=== PATIENT | female | born 2000 | race Caucasian/White ===

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

== ENCOUNTER 2022-01-09 14:42 | Emergency (ER) | payer OTHER ==
[~2022-01-09] VITALS: Ht 167.6 cm; Wt 66.9 kg
[~2022-01-09 14:42] MED LIST changes: +ONDANSETRON HCL4 MG PO
--- OUTSIDE RECORDS SUMMARY | 2022-01-09 14:50 | XMS ---
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 DOTSON Security Administrative Assistant Events 1 event(s) in the past 18 months Most recent security events: Elopement at [facility] 11/09/2021 16:05 - Patient eloped before treatment completed. - Patient with suicidal and/or homicidal ideations eloped. - Patient eloped with IV in place. Details: PATIENT LWBS CRITERIA MET - [facility] - Has Care Guidelines - 6 ED Visits in 6 Months - [facility] - 2 Visits in 30 Days CARE PROVIDERS KARLO DEJESUS Current PHONE: Unknown FLORINA CURTIS Current PHONE: Unknown RIMA SINGLETON 08/21/2019-Laith CARRASCO PHONE: Unknown YON CO[facility] 01/17/2018-Current PHONE: Unknown Care Guidelines exist for the following facilities: [facility] ( 08/23/2019 ) Care [facility]- TO HELP PATIENT ESTABLISH CARE WITH A PROVIDER NO ANSWER- LEFT A VOICEMAIL FOR A RETURN CALL. 01/17/2018 [facility] - [facility]W CALLED PATIENT PCP OFFICE DISCUSSED PATIENT ED UTILIZATION. - PATIENT HAS BEEN FOLLOWING UP WITH PCP DUE TO HX OF ASTHMA. - PATIENT NEXT APT IS 01/18/18 AND CHW HAS REQUESTED A REVIEW FOR NEBULIZER TREATMENT AND PCP DISCUSSION/EDUCATION WITH PATIENT ABOUT MARIJUANA USAGE. E.D. VISIT COUNT (12 MO.) [address] [place] [address]. TOTAL 10 NOTE: Visits indicate total known visits. ED/UCC VISIT TRACKING (12 MO.) 01/09/2022 14:43 [facility] [place] TYPE: Emergency COMPLAINT: - RIB PAIN 12/15/2021 17:49 [facility] [place] TYPE: Emergency COMPLAINT: - WEAKNESS/14 WKS PREG DIAGNOSES: - Bee allergy status - 14 weeks gestation of - Allergy status to other drugs, medicaments and biological substances - Other usp (current) drug therapy - Hyperemesis gravidarum with metabolic disturbance 11/09/2021 16:05 [facility] TYPE: Emergency COMPLAINT: - R HAND SWELLING BEE STING 10/31/2021 23:[address] [facility] [place] [facility] [place] TYPE: Emergency COMPLAINT: - SHORTNESS OF BREATH DIAGNOSES: - Gastro-esophageal laceration-hemorrhage syndrome - Cough, unspecified - Other tubing supervisor (current) drug therapy - Less than 8 weeks gestation of - Allergy status to other drugs, medicaments and biological substances - Diseases of the digestive system complicating , first trimester [facility]21 [facility] [place] [facility] COMPLAINT: - MULTIPLE COMPLAINTS DIAGNOSES: - Diarrhea, unspecified - Other specified diseases and conditions complicating - Contact with and (suspected) exposure to COVID-19 - Less than 8 weeks gestation of 10/16/2021 15:[address] [facility] [place] [place] TYPE: Emergency COMPLAINT: - NAUSEA,VOMITING,POSS DEHYDRATION DIAGNOSES: - Less than 8 weeks gestation of - Allergy status to other drugs, medicaments and biological substances - Vomiting of , unspecified - Nausea with vomiting, unspecified - Triplet , unspecified number of placenta and unspecified number of amniotic sacs, first trimester 09/10/2021 21:49 [facility] [place] TYPE: Emergency COMPLAINT: - LEFT KNEE INJ DIAGNOSES: - Pain in left knee - Derangement of unspecified meniscus due to old tear or injury, left knee - Allergy status to other drugs, medicaments and biological substances 08/29/2021 12:54 [facility] [place] TYPE: Emergency COMPLAINT: - VAGINAL BLEEDING, 6 WKS PREG DIAGNOSES: - Less than 8 weeks gestation of - Allergy status to other drugs, medicaments and biological substances - Threatened 07/05/2021 23:[address] [facility] [place] TYPE: Emergency COMPLAINT: - VOMITING, R UPPER ABD PAIN DIAGNOSES: - Upper abdominal pain, unspecified - Allergy status to other drugs, medicaments and biological substances - Right upper quadrant pain 04/25/2021 17:34 [facility] [place] TYPE: Emergency COMPLAINT: - FLU SYMPTOMS,DIZZINESS,VOMITING DIARRHEA DIAGNOSES: - COVID-19 - Diarrhea, unspecified - Allergy status to other drugs, medicaments and biological substances INPATIENT VISIT TRACKING (12 MO.) No inpatient visits to display in this time frame [email or web address]
== END 2022-01-09 16:41 | disposition home or self-care (01) ==
LOC: ED 14:42
DX: O99.891 Other specified diseases and conditions complicating pregnancy (principal); R07.9 Chest pain, unspecified; Z91.030 Bee allergy status; Z91.048 Other nonmedicinal substance allergy status; Z3A.18 18 weeks gestation of pregnancy
CPT/HCPCS: 99284

== ENCOUNTER 2022-02-18 02:49 | Emergency (ER) | payer OTHER ==
[~2022-02-18] VITALS: Ht 167.6 cm; Wt 66.9 kg
--- OUTSIDE RECORDS SUMMARY | 2022-02-18 02:56 | XMS ---
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 DOTSON Security Director Orange Events 1 event(s) in the past 18 months Most recent security events: Elopement at [facility] 11/09/2021 16:05 - Patient eloped before treatment completed. - Patient with suicidal and/or homicidal ideations eloped. - Patient eloped with IV in place. Details: PATIENT LWBS CRITERIA MET - [facility] - Has Care Guidelines - 6 ED Visits in 6 Months CARE PROVIDERS KARLO DEJESUS Physician Gospel Worker Current PHONE: Unknown FLORINA CURTIS [facility] Current PHONE: Unknown RIMA SINGLETON [facility] 08/21/2019-Laith CARRASCO PHONE: Unknown YON COOPER [facility] 01/17/2018-Current PHONE: Unknown Care Guidelines exist for the following facilities: [facility] ( 08/23/2019 ) Care [facility]- TO HELP PATIENT ESTABLISH CARE WITH A PROVIDER NO ANSWER- LEFT A VOICEMAIL FOR A RETURN CALL. 01/17/2018 [facility] - CHW CALLED PATIENT PCP OFFICE DISCUSSED PATIENT ED UTILIZATION. - PATIENT HAS BEEN FOLLOWING UP WITH PCP DUE TO HX OF ASTHMA. - PATIENT NEXT APT IS 01/18/18 AND CHW HAS REQUESTED A REVIEW FOR NEBULIZER TREATMENT AND PCP DISCUSSION/EDUCATION WITH PATIENT ABOUT MARIJUANA USAGE. E.D. VISIT COUNT (12 MO.) [address] [place] [address]. TOTAL 11 NOTE: Visits indicate total known visits. ED/UCC VISIT TRACKING (12 MO.) 02/18/2022 02:50 [facility] [place] TYPE: Emergency COMPLAINT: - 23 WKS PREG, VOMTIING BLOOD 01/09/2022 14:43 [facility] [place] TYPE: Emergency COMPLAINT: - RIB PAIN DIAGNOSES: - Other specified diseases and conditions complicating - Chest pain, unspecified - 18 weeks gestation of - Other nonmedicinal substance allergy status - Bee allergy status 12/15/2021 17:49 [facility] [place] TYPE: Emergency COMPLAINT: - WEAKNESS/14 WKS PREG DIAGNOSES: - 14 weeks gestation of - Allergy status to other drugs, medicaments and biological substances - Other long filler cigar roller machine (current) drug therapy - Hyperemesis gravidarum with metabolic disturbance - Bee allergy status 11/09/2021 16:05 [facility] [place] [place] TYPE: Emergency COMPLAINT: - R HAND SWELLING BEE STING 10/31/2021 23:27 [facility] [place] [place] TYPE: Emergency COMPLAINT: - SHORTNESS OF BREATH DIAGNOSES: - Other long filler cigar roller machine (current) drug therapy - Less than 8 weeks gestation of - Allergy status to other drugs, medicaments and biological substances - Diseases of the digestive system complicating , first trimester - Gastro-esophageal laceration-hemorrhage syndrome - Cough, unspecified 10/24/2021 15:52 [facility] [place] TYPE: Emergency COMPLAINT: - MULTIPLE COMPLAINTS DIAGNOSES: - Other specified diseases and conditions complicating - Contact with and (suspected) exposure to COVID-19 - Less than 8 weeks gestation of - Diarrhea, unspecified 10/16/2021 15:11 [facility] [place] TYPE: Emergency COMPLAINT: - NAUSEA,VOMITING,POSS DEHYDRATION DIAGNOSES: - Allergy status to other drugs, medicaments and biological substances - Vomiting of , unspecified - Nausea with vomiting, unspecified - Triplet , unspecified number of placenta and unspecified number of amniotic sacs, first trimester - Less than 8 weeks gestation of 09/10/2021 21:49 [facility] [place] TYPE: Emergency [...] and biological substances - Threatened 07/05/2021 23:56 [facility] [place] TYPE: Emergency [...] visits to display in this time frame [email or web address]
[2022-02-18] MEDS ORDERED: FAMOTIDINE20 MG PO (03:02)
[2022-02-18] MEDS ORDERED: METOCLOPRAMIDE H5 MG PO (03:02)
[2022-02-18] MEDS ORDERED: PROMETHAZINE HC25 M1 PO (04:42)
[2022-02-18] MEDS ORDERED: CARAFATE1 GM PO (04:42)
== END 2022-02-18 05:07 | disposition home or self-care (01) ==
LOC: ED 02:49
DX: O21.0 Mild hyperemesis gravidarum (principal); O99.612 Diseases of the digestive system complicating pregnancy, second trimester; K22.6 Gastro-esophageal laceration-hemorrhage syndrome; Z3A.23 23 weeks gestation of pregnancy; Z88.8 Allergy status to other drugs, medicaments and biological substances; Z91.030 Bee allergy status; Z79.899 Other long term (current) drug therapy
CPT/HCPCS: 36415; 76810; 76815; 80053; 81001; 83690; 85025; 87088; 96361; 96365; 96375; 99284-25; J0696; J2550; J7030

== ENCOUNTER 2022-10-13 13:00 | Emergency (ER) | payer OTHER ==
[~2022-10-13] VITALS: Ht 167.6 cm; Wt 63.7 kg
--- OUTSIDE RECORDS SUMMARY | ~2022-10-13 | XMS | Continuity of Care Document ---
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 | (no reaction) | (no severity) | | | | [facility] | | | + + + + + + | (no date) | [place] | [facility] | (no reaction) | [...] + + + | (no date) | [place] | [facility] | (no reaction) | [...] + | 2019-08-24 00:00 | Tdap | [facility] | + + + + | 2019-08-24 00:00 | Tdap | [facility] | + + + + Medications + + + + | date | description | facility | + + + + | 2021-11-05 00:00 | DIPHENHYDRAMINE HCL | [facility] | + + + + | 2021-12-15 00:00 | DIPHENHYDRAMINE HCL | [facility] | + + + + | 2022-01-09 00:00 | DIPHENHYDRAMINE HCL | [facility] | + + + + | 2022-02-18 00:00 | DIPHENHYDRAMINE HCL | [facility] | + + + + | 2022-10-07 00:00 | DIPHENHYDRAMINE HCL | [facility] | + + + + | 2021-10-16 00:00 | DOXYLAMINE/PYRIDOXINE HCL | [facility] | + + + + | 2021-10-16 00:00 | DOXYLAMINE/PYRIDOXINE HCL | [facility] | + + + + | 2021-10-18 00:00 | ASENAPINE MALEATE | [facility] | + + + + | 2021-10-24 00:00 | ASENAPINE MALEATE | [facility] | + + + + | 2021-11-05 00:00 | ASENAPINE MALEATE | [facility] | + + + + | 2021-12-15 00:00 | ASENAPINE MALEATE | [facility] | + + + + | 2022-01-09 00:00 | ASENAPINE MALEATE | [facility] | + + + + | 2022-02-18 00:00 | ASENAPINE MALEATE | [facility] | + + + + | 2022-10-07 00:00 | ASENAPINE MALEATE | [facility] | + + + + | 2021-12-15 00:00 | ONDANSETRON HCL | [facility] | + + + + | 2022-02-18 00:00 | SUCRALFATE | [facility] | + + + + | 2018-01-16 00:00 | BENZONATATE | [facility] | + + + + | 2018-01-16 00:00 | BENZONATATE | [facility] | + + + + | 2019-08-19 00:00 | CEPHALEXIN | [facility] | + + + + | 2019-08-19 00:00 | CEPHALEXIN | [facility] | + + + + | 2018-05-08 00:00 | AZITHROMYCIN | [facility] | + + + + | 2018-05-08 00:00 | AZITHROMYCIN | [facility] | + + + + | 2021-10-18 00:00 | AZITHROMYCIN | [facility] | + + + + | 2021-10-24 00:00 | AZITHROMYCIN | [facility] | + + + + | 2021-11-05 00:00 | AZITHROMYCIN | [facility] | + + + + | 2021-12-15 00:00 | AZITHROMYCIN | [facility] | + + + + | 2022-01-09 00:00 | AZITHROMYCIN | [facility] | + + + + | 2022-02-18 00:00 | AZITHROMYCIN | [facility] | + + + + | 2022-10-07 00:00 | AZITHROMYCIN | [facility] | + + + + | 2021-07-06 00:00 | PANTOPRAZOLE SODIUM | [facility] | + + + + | 2021-07-06 00:00 | PANTOPRAZOLE SODIUM | [facility] | + + + + | 2022-02-18 00:00 | FAMOTIDINE | [facility] | + + + + | 2022-10-07 00:00 | FAMOTIDINE | [facility] | + + + + | 2021-11-05 00:00 | FOLIC ACID | [facility] | + + + + | 2021-12-15 00:00 | FOLIC ACID | [facility] | + + + + | 2022-01-09 00:00 | FOLIC ACID | [facility] | + + + + | 2022-02-18 00:00 | FOLIC ACID | [facility] | + + + + | 2022-10-07 00:00 | FOLIC ACID | [facility] | + + + + | 2021-10-18 00:00 | GABAPENTIN | [facility] | + + + + | 2021-10-24 00:00 | GABAPENTIN | [facility] | + + + + | 2021-11-05 00:00 | GABAPENTIN | [facility] | + + + + | 2021-12-15 00:00 | GABAPENTIN | [facility] | + + + + | 2022-01-09 00:00 | GABAPENTIN | [facility] | + + + + | 2022-02-18 00:00 | GABAPENTIN | [facility] | + + + + | 2022-10-07 00:00 | GABAPENTIN | [facility] | + + + + | 2021-11-05 00:00 | METOCLOPRAMIDE HCL | [facility] | + + + + | 2021-12-15 00:00 | METOCLOPRAMIDE HCL | [facility] | + + + + | 2022-01-09 00:00 | METOCLOPRAMIDE HCL | [facility] | + + + + | 2022-02-18 00:00 | METOCLOPRAMIDE HCL | [facility] | + + + + | 2022-10-07 00:00 | METOCLOPRAMIDE HCL | [facility] | + + + + | 2021-07-06 00:00 | ONDANSETRON | [facility] | + + + + | 2021-07-06 00:00 | ONDANSETRON | [facility] | + + + + | 2018-05-08 00:00 | predniSONE | [facility] | + + + + | 2018-05-08 00:00 | predniSONE | [facility] | + + + + | 2021-10-18 00:00 | predniSONE | [facility] | + + + + | 2021-10-24 00:00 | predniSONE | [facility] | + + + + | 2021-11-05 00:00 | predniSONE | [facility] | + + + + | 2021-12-15 00:00 | predniSONE | [facility] | + + + + | 2022-01-09 00:00 | predniSONE | [facility] | + + + + | 2022-02-18 00:00 | predniSONE | [facility] | + + + + | 2022-10-07 00:00 | predniSONE | [facility] | + + + + | 2021-10-18 00:00 | ARIPIPRAZOLE | [facility] | + + + + | 2021-10-24 00:00 | ARIPIPRAZOLE | [facility] | + + + + | 2021-11-05 00:00 | ARIPIPRAZOLE | [facility] | + + + + | 2021-12-15 00:00 | ARIPIPRAZOLE | [facility] | + + + + | 2022-01-09 00:00 | ARIPIPRAZOLE | [facility] | + + + + | 2022-02-18 00:00 | ARIPIPRAZOLE | [facility] | + + + + | 2022-10-07 00:00 | ARIPIPRAZOLE | [facility] | + + + + | 2018-01-16 00:00 | ALBUTEROL SULFATE | [facility] | + + + + | 2018-01-16 00:00 | ALBUTEROL SULFATE | [facility] | + + + + | 2021-10-18 00:00 | AMOXICILLIN/POTASSIUM CLAV | [facility] | | | | | + + + + | 2021-10-24 00:00 | AMOXICILLIN/POTASSIUM CLAV | [facility] | | | | | + + + + | 2021-11-05 00:00 | AMOXICILLIN/POTASSIUM CLAV | [facility] | | | | | + + + + | 2021-12-15 00:00 | AMOXICILLIN/POTASSIUM CLAV | [facility] | | | | | + + + + | 2022-01-09 00:00 | AMOXICILLIN/POTASSIUM CLAV | [facility] | | | | | + + + + | 2022-02-18 00:00 | AMOXICILLIN/POTASSIUM CLAV | [facility] | | | | | + + + + | 2022-10-07 00:00 | AMOXICILLIN/POTASSIUM CLAV | [facility] | | | | | + + + + | 2021-10-18 00:00 | TRAZODONE HCL | [facility] | + + + + | 2021-10-24 00:00 | TRAZODONE HCL | [facility] | + + + + | 2021-11-05 00:00 | TRAZODONE HCL | [facility] | + + + + | 2021-12-15 00:00 | TRAZODONE HCL | [facility] | + + + + | 2022-01-09 00:00 | TRAZODONE HCL | [facility] | + + + + | 2022-02-18 00:00 | TRAZODONE HCL | [facility] | + + + + | 2022-10-07 00:00 | TRAZODONE HCL | [facility] | + + + + | 2018-05-08 00:00 | ALBUTEROL SULFATE | [facility] | + + + + | 2018-05-08 00:00 | ALBUTEROL SULFATE | [facility] | + + + + | 2021-10-18 00:00 | ALBUTEROL SULFATE | [facility] | + + + + | 2021-10-24 00:00 | ALBUTEROL SULFATE | [facility] | + + + + | 2021-11-05 00:00 | ALBUTEROL SULFATE | [facility] | + + + + | 2021-12-15 00:00 | ALBUTEROL SULFATE | [facility] | + + + + | 2022-01-09 00:00 | ALBUTEROL SULFATE | [facility] | + + + + | 2022-02-18 00:00 | ALBUTEROL SULFATE | [facility] | + + + + | 2022-10-07 00:00 | ALBUTEROL SULFATE | [facility] | + + + + | 2021-10-18 00:00 | CLONIDINE HCL | [facility] | + + + + | 2021-10-24 00:00 | CLONIDINE HCL | [facility] | + + + + | 2021-11-05 00:00 | CLONIDINE HCL | [facility] | + + + + | 2021-12-15 00:00 | CLONIDINE HCL | [facility] | + + + + | 2022-01-09 00:00 | CLONIDINE HCL | [facility] | + + + + | 2022-02-18 00:00 | CLONIDINE HCL | [facility] | + + + + | 2022-10-07 00:00 | CLONIDINE HCL | [facility] | + + + + | 2021-10-16 00:00 | PROMETHAZINE HCL | [facility] | + + + + | 2021-10-16 00:00 | PROMETHAZINE HCL | [facility] | + + + + | 2022-02-18 00:00 | PROMETHAZINE HCL | [facility] | + + + + Problems + + + + | date | description | facility | + + + + | 2014-01-22 00:00 | Contusion of scalp | [facility] | + + + + | 2014-01-22 00:00 | Contusion of scalp | [facility] | + + + + | 2014-04-28 00:00 | Chest wall pain | [facility] | + + + + | 2014-04-28 00:00 | Chest wall pain | [facility] | + + + + | 2017-07-08 00:00 | Intentional drug overdose | [facility] | + + + + | 2017-07-08 00:00 | Intentional drug overdose | [facility] | + + + + | 2018-01-07 00:00 | Bronchitis | [facility] | + + + + | 2018-01-07 00:00 | Bronchitis | [facility] | + + + + | 2018-05-07 00:00 | Attempted suicide | [facility] | + + + + | 2018-05-07 00:00 | Attempted suicide | [facility] | + + + + | 2018-05-07 00:00 | Overdose of | [facility] | | | antihypertensive agent | | + + + + | 2018-05-07 00:00 | Overdose of | [facility] | | | antihypertensive agent | | + + + + | 2019-01-06 00:00 | Methamphetamine abuse | [facility] | + + + + | 2019-01-06 00:00 | Methamphetamine abuse | [facility] | + + + + | 2019-03-20 00:00 | Substance abuse | [facility] | + + + + | 2019-03-20 00:00 | Substance abuse | [facility] | + + + + | 2019-03-20 00:00 | Drug overdose | [facility] | + + + + | 2019-03-20 00:00 | Drug overdose | [facility] | + + + + | 2019-04-13 00:00 | Sinus tachycardia | [facility] | + + + + | 2019-04-13 00:00 | Sinus tachycardia | [facility] | + + + + | 2019-08-19 00:00 | Urinary tract infection | [facility] | + + + + | 2019-08-19 00:00 | Urinary tract infection | [facility] | + + + + | 2021-04-25 00:00 | Infection due to severe | [facility] | | | acute respiratory syndrome | | | | coronavirus 2 (SARS-CoV-2) | | + + + + | 2021-04-25 00:00 | Infection due to severe | [facility] | | | acute respiratory syndrome | | | | coronavirus 2 (SARS-CoV-2) | | + + + + | 2021-08-29 00:00 | Threatened | [facility] | + + + + | 2021-08-29 00:00 | Threatened | [facility] | + + + + | 2021-09-10 00:00 | Tear of meniscus of left | [facility] | | | knee | | + + + + | 2021-09-10 00:00 | Tear of meniscus of left | [facility] | | | knee | | + + + + | 2021-10-16 00:00 | Multiple gestation | [facility] | + + + + | 2021-10-16 00:00 | Multiple gestation | [facility] | + + + + | 2021-10-16 00:00 | Abdominal pain | [facility] | + + + + | 2021-10-16 00:00 | Abdominal pain | [facility] | + + + + | 2021-10-16 00:00 | Vomiting | [facility] | + + + + | 2021-10-16 00:00 | Vomiting | [facility] | + + + + | 2021-11-01 00:00 | Venus-Chapa tear | [facility] | + + + + | 2021-11-09 00:00 | Patient left without being | [facility] | | | seen | | + + + + | 2021-12-15 00:00 | Hyperemesis gravidarum | [facility] | | | before end of 22 week | | | | gestation with dehydration | | + + + + | 2022-02-18 00:00 | Hyperemesis gravidarum | [facility] | + + + + | 2022-03-08 05:45 | TRIPLET PREG, UNSP NUM | [facility] | | | PLCNTA AMNIO SACS, FIRST | | | | TRIMESTER | | + + + + | 2022-03-08 05:45 | 14 WEEKS GESTATION OF | [facility] | | | | | + + + + | 2022-10-07 00:00 | Hallucinogen overdose | [facility] | + + + + | 2022-10-07 00:00 | Overdose of undetermined | [facility] | | | intent | | + + + + | 2022-10-07 03:34 | OTHER FATIGUE | [facility] | + + + + | 2022-10-07 03:34 | POISONING BY OTH | [facility] | | | PSYCHODYSLEPT, ACCIDENTAL, | | | | INIT | | + + + + | 2022-10-07 03:34 | 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 | [id number] | (missing) | (missing) | | (unavailable | 13:44 | [facility] | | | | + + + + + + + + + | Result panel 8 | + + + + + + + + + | | 2021-08-29 | [facility] | [id number] | (missing) | (missing) | | (unavailable | 13:44 | [facility] | | | | + + + + + + + + + | Result panel 9 | + + + + + + + + + | | 2021-08-29 | [facility] | [id number] | (missing) | (missing) | | (unavailable [...] 44 | + + + + + +-------+ + + | | 2021-10-16 | [facility] | 3.9 | (missing) | (missing) | | (unavailable | 17:22 | [facility] | | | | + + + +-------+ + + + + | Result panel 45 | + + + + + +-------+ + + | | 2021-10-16 | [facility] | 103 | (missing) | (missing) | | (unavailable | 17:22 | [facility] | | | | + + + +-------+ + + + + | Result panel 46 | + + + + + +------+ [...] 48 | + + + + + +-------+---------+ + | | 2021-10-16 | [facility] | 9.0 | mg/dL | (missing) | | (unavailable | 17:22 | [facility] | | | | + + + +-------+---------+ + + + | Result panel 49 | + + + + + +-------+ + + | | 2021-10-16 | [facility] | 7.4 | (missing) | (missing) | | (unavailable | 17:22 | [facility] | | | | + + + +-------+ + + + + | Result panel 50 | + + + + + +-------+ [...] 53 | + + + + + +-------+ + + | | 2021-10-16 | [facility] | 0.7 | (missing) | (missing) | | (unavailable | 17:22 | [facility] | | | | + + + +-------+ + + + + | Result panel 54 | + + + + + +------+ + + | | 2021-10-16 | [facility] | 11 | (missing) | (missing) | | (unavailable | 17:22 | [facility] | | | | + + + +------+ + + + + | Result panel 55 | + + + + + +------+ + + | | 2021-10-16 | [facility] | 15 | (missing) | (missing) | | (unavailable | 17:22 | [facility] | | | | + + + +------+ + + + + | Result panel 56 | + + + + + +------+ + + | | 2021-10-16 | [facility] | 58 | (missing) | (missing) | | (unavailable | 17:22 | [facility] | | | | + + + +------+ + + + + | Result panel 57 | + + + + + +---------+ + + | | 2021-10-16 | [facility] | [id number] | (missing) | (missing) | | (unavailable | 17:22 | [facility] | | | | + + + +---------+ + + + + | Result panel 58 | + + + + + + + + + | | 2021-10-16 | [facility] | POSITIVE | (missing) | (missing) | | (unavailable | 17:22 | [facility] | | | | + + + + + + + + + | Result panel 59 | + + + + + +---------+ + + | | 2021-10-16 | [facility] | [id number] | (missing) | (missing) | | (unavailable | 17:22 | [facility] | | | | + + + +---------+ + + + + | Result panel 60 | + + + + + + [...] | | 2021-10-16 | [facility] | [id number] | (missing) | (missing) | | (unavailable | 17:22 | [facility] | | | | + + + +---------+ + + + + | Result panel 62 | + + + + + + [...] 64 | + + + + + +--------+ + + | | 2021-10-16 | [facility] | 4.28 | (missing) | (missing) | | (unavailable | 17:22 | [facility] | | | | + + + +--------+ + + + + | Result panel 65 | + + + + + +--------+ [...] 67 | + + + + + +--------+ + + | | 2021-10-16 | [facility] | 91.3 | (missing) | (missing) | | (unavailable | 17:22 | [facility] | | | | + + + +--------+ + + + + | Result panel 68 | + + + + + +--------+ + + | | 2021-10-16 | [facility] | 31.2 | (missing) | (missing) | | (unavailable | 17:22 | [facility] | | | | + + + +--------+ + + + + | Result panel 69 | + + + + + +--------+ + + | | 2021-10-16 | [facility] | 34.2 | (missing) | (missing) | | (unavailable | 17:22 | [facility] | | | | + + + +--------+ + + + + | Result panel 70 | + + + + + +--------+ + + | | 2021-10-16 | [facility] | 13.0 | (missing) | (missing) | | (unavailable | 17:22 | [facility] | | | | + + + +--------+ + + + + | Result panel 71 | + + + + + +-------+ + + | | 2021-10-16 | [facility] | 216 | (missing) | (missing) | | (unavailable | 17:22 | [facility] | | | | + + + +-------+ + + + + | Result panel 72 | + + + + + +--------+ + + | | 2021-10-16 | [facility] | 58.9 | (missing) | (missing) | | (unavailable | 17:22 | [facility] | | | | + + + +--------+ + + + + | Result panel 73 | + + + + + +--------+ + + | | 2021-10-16 | [facility] | 28.8 | (missing) | (missing) | | (unavailable | 17:22 | [facility] | | | | + + + +--------+ + + + + | Result panel 74 | + + + + + +-------+ + + | | 2021-10-16 | [facility] | 8.8 | (missing) | (missing) | | (unavailable | 17:22 | [facility] | | | | + + + +-------+ + + + + | Result panel 75 | + + + + + +-------+ + + | | 2021-10-16 | [facility] | 2.8 | (missing) | (missing) | | (unavailable | 17:22 | [facility] | | | | + + + +-------+ + + + + | Result panel 76 | + + + + + +-------+ + + | | 2021-10-16 | [facility] | 0.7 | (missing) | (missing) | | (unavailable | 17:22 | [facility] | | | | + + + +-------+ + + + + | Result panel 77 | + + + + + +------+---------+ + | | 2021-10-16 | [facility] | 88 | mg/dL | (missing) | | (unavailable | :22 | [facility] | | | | + + + +------+---------+ + + + | Result panel 78 | + + + + + +------+---------+ + | | 2021-10-16 | [facility] | 11 | mg/dL | (missing) | | (unavailable | 17:22 | [facility] | | | | + + + +------+---------+ + + + | Result panel 79 | + + + + + +--------+---------+ + | | 2021-10-16 | [facility] | 0.71 | mg/dL | (missing) | | (unavailable | 17:22 | [facility] | | | | + + + +--------+---------+ + + + | Result panel 80 | + + + + + +-------+ + + | | 2021-10-16 | [facility] | 126 | (missing) | (missing) | | (unavailable | 17:22 | [facility] | | | | + + + +-------+ + + + + | Result panel 81 | + + + + + +---------+ [...] (missing) | | (unavailable | 19:15 | [facility] | | | | | [...] | | 2021-12-15 | [facility] | [id number] | (missing) | (missing) | | (unavailable [...] (missing) | | (unavailable | 18:33 | [facility] | | | | | ) | [...] | | 2021-12-15 | [facility] | [id number] | (missing) | (missing) | | (unavailable [...] 358 | + + + + + +-------+ + + | | 2022-10-07 | [facility] | 9.8 | (missing) | (missing) | | (unavailable | 03:45:07 | [facility] | | | | + + + +-------+ + + + + | Result panel 359 | + + + + + +--------+ + + | | 2022-10-07 | [facility] | 46.4 | (missing) | (missing) | | (unavailable | 03:45:07 | [facility] | | | | + + + +--------+ + + + + | Result panel 360 | + + + + + +--------+ + + | | 2022-10-07 | [facility] | 38.6 | (missing) | (missing) | | (unavailable | 03:45:07 | [facility] | | | | + + + +--------+ + + + + | Result panel 361 | + + + + + +-------+ + + | | 2022-10-07 | [facility] | 9.3 | (missing) | (missing) | | (unavailable | 03:45:07 | [facility] | | | | + + + +-------+ + + + + | Result panel 362 | + + + + + +-------+ + + | | 2022-10-07 | [facility] | 5.0 | (missing) | (missing) | | (unavailable | 03:45:07 | [facility] | | | | + + + +-------+ + + + + | Result panel 363 | + + + + + +-------+ [...] 365 | + + + + + +------+---------+ + | | 2022-10-07 | [facility] | 99 | mg/dL | (missing) | | (unavailable | 03:45:07 | [facility] | | | | + + + +------+---------+ + + + | Result panel 366 | + + + + + +------+---------+ + | | 2022-10-07 | [facility] | 25 | mg/dL | (missing) | | (unavailable | 03:45:07 | [facility] | | | | + + + +------+---------+ + + + | Result panel 367 | + + + + + +--------+---------+ + | | 2022-10-07 | [facility] | 1.05 | mg/dL | (missing) | | (unavailable | 03:45:07 | [facility] | | | | + + + +--------+---------+ + + + | Result panel 368 | + + + + + +--------+ + + | | 2022-10-07 | [facility] | 15.3 | (missing) | (missing) | | (unavailable | 03:45:07 | [facility] | | | | + + + +--------+ + + + + | Result panel 369 | + + + + + +------+ + + | | 2022-10-07 | [facility] | 78 | (missing) | (missing) | | (unavailable | 03:45:07 | [facility] | | | | + + + +------+ + + + + | Result panel 370 | + + + + + +---------+ + + | | 2022-10-07 | [facility] | 23.80 | (missing) | (missing) | | (unavailable | 03:45:07 | [facility] | | | | + + + +---------+ + + + + | Result panel 371 | + + + + + +-------+ + + | | 2022-10-07 | [facility] | 139 | (missing) | (missing) | | (unavailable | 03:45:07 | [facility] | | | | + + + +-------+ + + + + | Result panel 372 | + + + + + +-------+ + + | | 2022-10-07 | [facility] | 3.4 | (missing) | (missing) | | (unavailable | 03:45:07 | [facility] | | | | + + + +-------+ + + + + | Result panel 373 | + + + + + +-------+ + + | | 2022-10-07 | [facility] | 101 | (missing) | (missing) | | (unavailable | 03:45:07 | [facility] | | | | + + + +-------+ + + + + | Result panel 374 [...] 375 | + + + + + +--------+ + + | | 2022-10-07 | [facility] | 15.4 | (missing) | (missing) | | (unavailable | 03:45:07 | [facility] | | | | + + + +--------+ + + + + | Result panel 376 | + + + + + +-------+---------+ + | | 2022-10-07 | [facility] | 9.0 | mg/dL | (missing) | | (unavailable | 03:45:07 | [facility] | | | | + + + +-------+---------+ + + + | Result panel 377 [...] 379 | + + + + + +--------+ + + | | 2022-10-07 | [facility] | 44.8 | (missing) | (missing) | | (unavailable | 03:45:07 | [facility] | | | | + + + +--------+ + + + + | Result panel 380 | + + + + + +-------+ + + | | 2022-10-07 | [facility] | 3.7 | (missing) | (missing) | | (unavailable | 03:45:07 | [facility] | | | | + + + +-------+ + + + + | Result panel 381 | + + + + + +--------+ + + | | 2022-10-07 | [facility] | 1.27 | (missing) | (missing) | | (unavailable | 03:45:07 | [facility] | | | | + + + +--------+ + + + + | Result panel 382 [...] 383 | + + + + + +------+ + + | | 2022-10-07 | [facility] | 21 | (missing) | (missing) | | (unavailable | 03:45:07 | [facility] | | | | + + + +------+ + + + + | Result panel 384 | + + + + + +------+ + + | | 2022-10-07 | [facility] | 28 | (missing) | (missing) | | (unavailable | 03:45:07 | [facility] | | | | + + + +------+ + + + + | Result panel 385 | + + + + + +------+ + + | | 2022-10-07 | [facility] | 87 | (missing) | (missing) | | (unavailable | 03:45:07 | [facility] | | [facility] | | | | + + + +------+ + + + + | Result panel 386 | + + + + + + + + + | | 2022-10-07 | [facility] | NEGATIVE | (missing) | (missing) | | (unavailable | 03:45:07 | [facility] | | | | + + + + + + + + + | Result panel 387 | + + + + + +-----+ [...] 389 | + + + + + +-------+---------+ + | | 2022-10-07 | [facility] | 1.1 | mg/dL | (missing) | | (unavailable | 03:45:07 | [facility] | | | | + + + +-------+---------+ + + + | Result panel 390 | + + + + + +--------+ + + | | 2022-10-07 | [facility] | 87.3 | (missing) | (missing) | | (unavailable | 03:45:07 | [facility] | | | | + + + +--------+ + + + + | Result panel 391 | + + + + + +------+ [...] 393 | + + + + + +--------+ + + | | 2022-10-07 | [facility] | 29.8 | (missing) | (missing) | | (unavailable | 03:45:07 | [facility] | | | | + + + +--------+ + + + + | Result panel 394 | + + + + + +--------+ + + | | 2022-10-07 | [facility] | 34.1 | (missing) | (missing) | | (unavailable | 03:45:07 | [facility] | | | | + + + +--------+ + + + + | Result panel 395 | + + + + + +--------+ + + | | 2022-10-07 | [facility] | 13.2 | (missing) | (missing) | | (unavailable | 03:45:07 | [facility] | | | | + + + +--------+ + + + + | Result panel 396 | + + + + + +-------+ + + | | 2022-10-07 | [facility] | 289 | (missing) | (missing) | | (unavailable | 03:45:07 | [facility] | | | | + + + +-------+ + + + + | Result panel 397 | + + + + + + + + + | | 2022-10-07 | [facility] | YELLOW | (missing) | (missing) | | (unavailable | 03:53:07 | [facility] | | | | + + + + + + + + + | Result panel 398 | + + + + + +---------+ + + | | 2022-10-07 | [facility] | CLEAR | (missing) | (missing) | | (unavailable | 03:53:07 | [facility] | | | | + + + +---------+ + + + + | Result panel 399 | + + + + + + + + + | | 2022-10-07 | [facility] | NEGATIVE | (missing) | (missing) | | (unavailable | 03:53:07 | [facility] | | | | + + + + + + + + + | Result panel 400 | + + + + + + + + + | | 2022-10-07 | [facility] | NEGATIVE | (missing) | (missing) | | (unavailable | 03:53:07 | [facility] | | | | + + + + + + + + + | Result panel 401 | + + + + + + + + + | | 2022-10-07 | [facility] | NEGATIVE | (missing) | (missing) | | (unavailable | 03:53:07 | [facility] | | | | + + + + + + + + + | Result panel 402 | + + + + + +---------+ + + | | 2022-10-07 | [facility] | 1.020 | (missing) | (missing) | | (unavailable | 03:53:07 | [facility] | | | | + + + +---------+ + + + + | Result panel 403 | + + + + + + + + + | | 2022-10-07 | [facility] | NEGATIVE | (missing) | (missing) | | (unavailable | 03:53:07 | [facility] | | | | + + + + + + + + + | Result panel 404 | + + + + + +-------+ + + | | 2022-10-07 | [facility] | 5.5 | (missing) | (missing) | | (unavailable | 03:53:07 | [facility] | | | | + + + +-------+ + + + + | Result panel 405 | + + + + + + + + + | | 2022-10-07 | [facility] | NEGATIVE | (missing) | (missing) | | (unavailable | 03:53:07 | [facility] | | | | + + + + + + + + + | Result panel 406 | + + + + + + + + + | | 2022-10-07 | [facility] | NORMAL | (missing) | (missing) | | (unavailable | 03:53:07 | [facility] | | | | + + + + + + + + + | Result panel 407 | + + + + + + + + + | | 2022-10-07 | [facility] | NEGATIVE | (missing) | (missing) | | (unavailable | 03:53:07 | [facility] | | | | + + + + + + + + + | Result panel 408 | + + + + + + [...] + + + + + + + Social History No information. Vital Signs + + + +---------+ | [...] 147.45 | lb | + + + +---------+"
--- OUTSIDE RECORDS SUMMARY | ~2022-10-13 | XMS | Continuity of Care Document ---
Demographics + + + | Address | [address] | | | [place] [address] | + + + | Preferred Language | Unknown | + + + | Marital Status | Never | + + + | Denominational Affiliation | Unknown | + + + | Race | White | + + + | Ethnic Group | Not or | + + + Author + + + | Author | [facility] | + + + | Organization | [facility] | + + + | Address | [address] | | | [place] [address] | + + + | Phone | | + + + Care Team Providers + + + + | Care Diver Pumper Name | Role | Phone | + [...] + + + | (no date) | [place] | [facility] | (no reaction) | (no severity) | | | | [facility] | | | + + + + + + | (no date) | [place] | [facility] | (no reaction) | [...] + + + | (no date) | [place] | [facility] | (no reaction) | [...] + | 2019-08-24 00:00 | Tdap | [facility] | + + + + | 2019-08-24 00:00 | Tdap | [facility] | + + + + Medications + + + + | date | description | facility | + + + + | 2021-11-05 00:00 | DIPHENHYDRAMINE HCL | [facility] | + + + + | 2021-12-15 00:00 | DIPHENHYDRAMINE HCL | [facility] | + + + + | 2022-01-09 00:00 | DIPHENHYDRAMINE HCL | [facility] | + + + + | 2022-02-18 00:00 | DIPHENHYDRAMINE HCL | [facility] | + + + + | 2022-10-07 00:00 | DIPHENHYDRAMINE HCL | [facility] | + + + + | 2021-10-16 00:00 | DOXYLAMINE/PYRIDOXINE HCL | [facility] | + + + + | 2021-10-16 00:00 | DOXYLAMINE/PYRIDOXINE HCL | [facility] | + + + + | 2021-10-18 00:00 | ASENAPINE MALEATE | [facility] | + + + + | 2021-10-24 00:00 | ASENAPINE MALEATE | [facility] | + + + + | 2021-11-05 00:00 | ASENAPINE MALEATE | [facility] | + + + + | 2021-12-15 00:00 | ASENAPINE MALEATE | [facility] | + + + + | 2022-01-09 00:00 | ASENAPINE MALEATE | [facility] | + + + + | 2022-02-18 00:00 | ASENAPINE MALEATE | [facility] | + + + + | 2022-10-07 00:00 | ASENAPINE MALEATE | [facility] | + + + + | 2021-12-15 00:00 | ONDANSETRON HCL | [facility] | + + + + | 2022-02-18 00:00 | SUCRALFATE | [facility] | + + + + | 2018-01-16 00:00 | BENZONATATE | [facility] | + + + + | 2018-01-16 00:00 | BENZONATATE | [facility] | + + + + | 2019-08-19 00:00 | CEPHALEXIN | [facility] | + + + + | 2019-08-19 00:00 | CEPHALEXIN | [facility] | + + + + | 2018-05-08 00:00 | AZITHROMYCIN | [facility] | + + + + | 2018-05-08 00:00 | AZITHROMYCIN | [facility] | + + + + | 2021-10-18 00:00 | AZITHROMYCIN | [facility] | + + + + | 2021-10-24 00:00 | AZITHROMYCIN | [facility] | + + + + | 2021-11-05 00:00 | AZITHROMYCIN | [facility] | + + + + | 2021-12-15 00:00 | AZITHROMYCIN | [facility] | + + + + | 2022-01-09 00:00 | AZITHROMYCIN | [facility] | + + + + | 2022-02-18 00:00 | AZITHROMYCIN | [facility] | + + + + | 2022-10-07 00:00 | AZITHROMYCIN | [facility] | + + + + | 2021-07-06 00:00 | PANTOPRAZOLE SODIUM | [facility] | + + + + | 2021-07-06 00:00 | PANTOPRAZOLE SODIUM | [facility] | + + + + | 2022-02-18 00:00 | FAMOTIDINE | [facility] | + + + + | 2022-10-07 00:00 | FAMOTIDINE | [facility] | + + + + | 2021-11-05 00:00 | FOLIC ACID | [facility] | + + + + | 2021-12-15 00:00 | FOLIC ACID | [facility] | + + + + | 2022-01-09 00:00 | FOLIC ACID | [facility] | + + + + | 2022-02-18 00:00 | FOLIC ACID | [facility] | + + + + | 2022-10-07 00:00 | FOLIC ACID | [facility] | + + + + | 2021-10-18 00:00 | GABAPENTIN | [facility] | + + + + | 2021-10-24 00:00 | GABAPENTIN | [facility] | + + + + | 2021-11-05 00:00 | GABAPENTIN | [facility] | + + + + | 2021-12-15 00:00 | GABAPENTIN | [facility] | + + + + | 2022-01-09 00:00 | GABAPENTIN | [facility] | + + + + | 2022-02-18 00:00 | GABAPENTIN | [facility] | + + + + | 2022-10-07 00:00 | GABAPENTIN | [facility] | + + + + | 2021-11-05 00:00 | METOCLOPRAMIDE HCL | [facility] | + + + + | 2021-12-15 00:00 | METOCLOPRAMIDE HCL | [facility] | + + + + | 2022-01-09 00:00 | METOCLOPRAMIDE HCL | [facility] | + + + + | 2022-02-18 00:00 | METOCLOPRAMIDE HCL | [facility] | + + + + | 2022-10-07 00:00 | METOCLOPRAMIDE HCL | [facility] | + + + + | 2021-07-06 00:00 | ONDANSETRON | [facility] | + + + + | 2021-07-06 00:00 | ONDANSETRON | [facility] | + + + + | 2018-05-08 00:00 | predniSONE | [facility] | + + + + | 2018-05-08 00:00 | predniSONE | [facility] | + + + + | 2021-10-18 00:00 | predniSONE | [facility] | + + + + | 2021-10-24 00:00 | predniSONE | [facility] | + + + + | 2021-11-05 00:00 | predniSONE | [facility] | + + + + | 2021-12-15 00:00 | predniSONE | [facility] | + + + + | 2022-01-09 00:00 | predniSONE | [facility] | + + + + | 2022-02-18 00:00 | predniSONE | [facility] | + + + + | 2022-10-07 00:00 | predniSONE | [facility] | + + + + | 2021-10-18 00:00 | ARIPIPRAZOLE | [facility] | + + + + | 2021-10-24 00:00 | ARIPIPRAZOLE | [facility] | + + + + | 2021-11-05 00:00 | ARIPIPRAZOLE | [facility] | + + + + | 2021-12-15 00:00 | ARIPIPRAZOLE | [facility] | + + + + | 2022-01-09 00:00 | ARIPIPRAZOLE | [facility] | + + + + | 2022-02-18 00:00 | ARIPIPRAZOLE | [facility] | + + + + | 2022-10-07 00:00 | ARIPIPRAZOLE | [facility] | + + + + | 2018-01-16 00:00 | ALBUTEROL SULFATE | [facility] | + + + + | 2018-01-16 00:00 | ALBUTEROL SULFATE | [facility] | + + + + | 2021-10-18 00:00 | AMOXICILLIN/POTASSIUM CLAV | [facility] | | | | | + + + + | 2021-10-24 00:00 | AMOXICILLIN/POTASSIUM CLAV | [facility] | | | | | + + + + | 2021-11-05 00:00 | AMOXICILLIN/POTASSIUM CLAV | [facility] | | | | | + + + + | 2021-12-15 00:00 | AMOXICILLIN/POTASSIUM CLAV | [facility] | | | | | + + + + | 2022-01-09 00:00 | AMOXICILLIN/POTASSIUM CLAV | [facility] | | | | | + + + + | 2022-02-18 00:00 | AMOXICILLIN/POTASSIUM CLAV | [facility] | | | | | + + + + | 2022-10-07 00:00 | AMOXICILLIN/POTASSIUM CLAV | [facility] | | | | | + + + + | 2021-10-18 00:00 | TRAZODONE HCL | [facility] | + + + + | 2021-10-24 00:00 | TRAZODONE HCL | [facility] | + + + + | 2021-11-05 00:00 | TRAZODONE HCL | [facility] | + + + + | 2021-12-15 00:00 | TRAZODONE HCL | [facility] | + + + + | 2022-01-09 00:00 | TRAZODONE HCL | [facility] | + + + + | 2022-02-18 00:00 | TRAZODONE HCL | [facility] | + + + + | 2022-10-07 00:00 | TRAZODONE HCL | [facility] | + + + + | 2018-05-08 00:00 | ALBUTEROL SULFATE | [facility] | + + + + | 2018-05-08 00:00 | ALBUTEROL SULFATE | [facility] | + + + + | 2021-10-18 00:00 | ALBUTEROL SULFATE | [facility] | + + + + | 2021-10-24 00:00 | ALBUTEROL SULFATE | [facility] | + + + + | 2021-11-05 00:00 | ALBUTEROL SULFATE | [facility] | + + + + | 2021-12-15 00:00 | ALBUTEROL SULFATE | [facility] | + + + + | 2022-01-09 00:00 | ALBUTEROL SULFATE | [facility] | + + + + | 2022-02-18 00:00 | ALBUTEROL SULFATE | [facility] | + + + + | 2022-10-07 00:00 | ALBUTEROL SULFATE | [facility] | + + + + | 2021-10-18 00:00 | CLONIDINE HCL | [facility] | + + + + | 2021-10-24 00:00 | CLONIDINE HCL | [facility] | + + + + | 2021-11-05 00:00 | CLONIDINE HCL | [facility] | + + + + | 2021-12-15 00:00 | CLONIDINE HCL | [facility] | + + + + | 2022-01-09 00:00 | CLONIDINE HCL | [facility] | + + + + | 2022-02-18 00:00 | CLONIDINE HCL | [facility] | + + + + | 2022-10-07 00:00 | CLONIDINE HCL | [facility] | + + + + | 2021-10-16 00:00 | PROMETHAZINE HCL | [facility] | + + + + | 2021-10-16 00:00 | PROMETHAZINE HCL | [facility] | + + + + | 2022-02-18 00:00 | PROMETHAZINE HCL | [facility] | + + + + Problems + + + + | date | description | facility | + + + + | 2014-01-22 00:00 | Contusion of scalp | [facility] | + + + + | 2014-01-22 00:00 | Contusion of scalp | [facility] | + + + + | 2014-04-28 00:00 | Chest wall pain | [facility] | + + + + | 2014-04-28 00:00 | Chest wall pain | [facility] | + + + + | 2017-07-08 00:00 | Intentional drug overdose | [facility] | + + + + | 2017-07-08 00:00 | Intentional drug overdose | [facility] | + + + + | 2018-01-07 00:00 | Bronchitis | [facility] | + + + + | 2018-01-07 00:00 | Bronchitis | [facility] | + + + + | 2018-05-07 00:00 | Attempted suicide | [facility] | + + + + | 2018-05-07 00:00 | Attempted suicide | [facility] | + + + + | 2018-05-07 00:00 | Overdose of | [facility] | | | antihypertensive agent | | + + + + | 2018-05-07 00:00 | Overdose of | [facility] | | | antihypertensive agent | | + + + + | 2019-01-06 00:00 | Methamphetamine abuse | [facility] | + + + + | 2019-01-06 00:00 | Methamphetamine abuse | [facility] | + + + + | 2019-03-20 00:00 | Substance abuse | [facility] | + + + + | 2019-03-20 00:00 | Substance abuse | [facility] | + + + + | 2019-03-20 00:00 | Drug overdose | [facility] | + + + + | 2019-03-20 00:00 | Drug overdose | [facility] | + + + + | 2019-04-13 00:00 | Sinus tachycardia | [facility] | + + + + | 2019-04-13 00:00 | Sinus tachycardia | [facility] | + + + + | 2019-08-19 00:00 | Urinary tract infection | [facility] | + + + + | 2019-08-19 00:00 | Urinary tract infection | [facility] | + + + + | 2021-04-25 00:00 | Infection due to severe | [facility] | | | acute respiratory syndrome | | | | coronavirus 2 (SARS-CoV-2) | | + + + + | 2021-04-25 00:00 | Infection due to severe | [facility] | | | acute respiratory syndrome | | | | coronavirus 2 (SARS-CoV-2) | | + + + + | 2021-08-29 00:00 | Threatened | [facility] | + + + + | 2021-08-29 00:00 | Threatened | [facility] | + + + + | 2021-09-10 00:00 | Tear of meniscus of left | [facility] | | | knee | | + + + + | 2021-09-10 00:00 | Tear of meniscus of left | [facility] | | | knee | | + + + + | 2021-10-16 00:00 | Multiple gestation | [facility] | + + + + | 2021-10-16 00:00 | Multiple gestation | [facility] | + + + + | 2021-10-16 00:00 | Abdominal pain | [facility] | + + + + | 2021-10-16 00:00 | Abdominal pain | [facility] | + + + + | 2021-10-16 00:00 | Vomiting | [facility] | + + + + | 2021-10-16 00:00 | Vomiting | [facility] | + + + + | 2021-11-01 00:00 | Venus-Chapa tear | [facility] | + + + + | 2021-11-09 00:00 | Patient left without being | [facility] | | | seen | | + + + + | 2021-12-15 00:00 | Hyperemesis gravidarum | [facility] | | | before end of 22 week | | | | gestation with dehydration | | + + + + | 2022-02-18 00:00 | Hyperemesis gravidarum | [facility] | + + + + | 2022-03-08 05:45 | TRIPLET PREG, UNSP NUM | [facility] | | | PLCNTA AMNIO SACS, FIRST | | | | TRIMESTER | | + + + + | 2022-03-08 05:45 | 14 WEEKS GESTATION OF | [facility] | | | | | + + + + | 2022-10-07 00:00 | Hallucinogen overdose | [facility] | + + + + | 2022-10-07 00:00 | Overdose of undetermined | [facility] | | | intent | | + + + + | 2022-10-07 03:34 | OTHER FATIGUE | [facility] | + + + + | 2022-10-07 03:34 | POISONING BY OTH | [facility] | | | PSYCHODYSLEPT, ACCIDENTAL, | | | | INIT | | + + + + | 2022-10-07 03:34 | 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 | [id number] | (missing) | (missing) | | (unavailable | 13:44 | [facility] | | | | + + + + + + + + + | Result panel 8 | + + + + + + + + + | | 2021-08-29 | [facility] | [id number] | (missing) | (missing) | | (unavailable | 13:44 | [facility] | | | | + + + + + + + + + | Result panel 9 | + + + + + + + + + | | 2021-08-29 | [facility] | [id number] | (missing) | (missing) | | (unavailable [...] | | 2021-10-16 | [facility] | [id number] | (missing) | (missing) | | (unavailable [...] | | 2021-10-16 | [facility] | [id number] | (missing) | (missing) | | (unavailable [...] | | 2021-10-16 | [facility] | [address] | (missing) | (missing) | | (unavailable [...] | | 2021-12-15 | [facility] | [id number] | (missing) | (missing) | | (unavailable [...] | | 2021-12-15 | [facility] | [id number] | (missing) | (missing) | | (unavailable [...]
[~2022-10-13 13:00] MED LIST changes: +CARAFATE1 GM PO; +FAMOTIDINE20 MG PO; +PROMETHAZINE HC25 M1 PO
--- OUTSIDE RECORDS SUMMARY | 2022-10-13 13:04 | XMS ---
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 DOTSON Security Housekeeper Manager Events 1 event(s) in the past 18 months Most recent security events: Elopement at [facility] 11/09/2021 16:05 - Patient eloped before treatment completed. - Patient with suicidal and/or homicidal ideations eloped. - Patient eloped with IV in place. Details: PATIENT LWBS CRITERIA MET - [facility] - 2 Visits in 30 Days - [facility] - Has Care Guidelines CARE PROVIDERS -Juan- Dentist: Office Systems Technology Instructor [facility] PHONE: [phone] KARLO DEJESUS Current PHONE: Unknown FLORINA CURTIS Current PHONE: Unknown [facility]A [facility]TON [facility] 08/21/2019-Current [facility] PHONE: Unknown YON COOPER [facility] 01/17/2018-Current PHONE: Unknown Care Guidelines exist for the following facilities: [facility] ( 08/23/2019 ) [facility]- TO HELP [...] USAGE. E.D. VISIT COUNT (12 MO.) 1 [facility] 9 [facility]. TOTAL 10 NOTE: Visits indicate total known visits. ED/UCC VISIT TRACKING (12 MO.) 10/13/2022 13:02 [facility] [place] TYPE: Emergency COMPLAINT: - N/V/D, WEAKNESS, DEHYDRATION 10/07/2022 03:34 [facility] [place] TYPE: Emergency COMPLAINT: - POSS OVERDOSE DIAGNOSES: - Allergy status to other drugs, medicaments and biological substances - Bee allergy status - Other fatigue - Other manager terminal (current) drug therapy - Poisoning by other psychodysleptics [hallucinogens], accidental (unintentional), initial encounter 05/15/2022 12:04 [facility] TYPE: Emergency DIAGNOSES: 71239. ring [place] eye [id number]. Dermatophytosis, unspecified 02/18/2022 02:50 [facility] [place] TYPE: Emergency COMPLAINT: - 23 WKS PREG, VOMTIING BLOOD DIAGNOSES: - 23 weeks gestation of - Allergy status to other drugs, medicaments and biological substances - Bee allergy status - Diseases of the digestive system complicating , second trimester - Gastro-esophageal laceration-hemorrhage syndrome - Mild hyperemesis gravidarum - Nausea with vomiting, unspecified - Other manager terminal (current) drug therapy 01/09/2022 14:43 [facility] [place] TYPE: Emergency COMPLAINT: - RIB PAIN DIAGNOSES: - 18 weeks gestation of - Bee allergy status - Chest pain, unspecified - Other nonmedicinal substance allergy status - Other specified diseases and conditions complicating 12/15/2021 17:49 [facility] [place] TYPE: Emergency COMPLAINT: - WEAKNESS/14 WKS PREG DIAGNOSES: - 14 weeks gestation of - Allergy status to other drugs, medicaments and biological substances - Bee allergy status - Hyperemesis gravidarum with metabolic disturbance - Other manager terminal (current) drug therapy 11/09/2021 16:05 [facility] [place] TYPE: Emergency COMPLAINT: - R HAND SWELLING BEE STING 10/31/2021 23:27 [facility] [place] TYPE: Emergency COMPLAINT: - SHORTNESS OF BREATH DIAGNOSES: - Allergy status to other drugs, medicaments and biological substances - Cough, unspecified - Diseases of the digestive system complicating , first trimester - Gastro-esophageal laceration-hemorrhage syndrome - Less than 8 weeks gestation of - Other manager terminal (current) drug therapy 10/24/2021 15:52 [facility] [place] TYPE: Emergency COMPLAINT: - MULTIPLE COMPLAINTS DIAGNOSES: - Contact with and (suspected) exposure to COVID-19 - Diarrhea, unspecified - Less than 8 weeks gestation of - Other specified diseases and conditions complicating 10/16/2021 15:11 [facility] TYPE: Emergency COMPLAINT: - NAUSEA,VOMITING,POSS DEHYDRATION DIAGNOSES: - Allergy status to other drugs, medicaments and biological substances - Less than 8 weeks gestation of - Nausea with vomiting, unspecified - Triplet , unspecified number of placenta and unspecified number of amniotic sacs, first trimester - Vomiting of , unspecified INPATIENT VISIT TRACKING (12 MO.) 03/15/2022 16:37 [facility] TYPE: Obstetrics DIAGNOSES: 04202. False labor before 37 completed weeks of gestation, unspecified trimester 46672. Premature rupture of membranes, triplets 65603. Depression, unspecified 48233. Major depressive disorder, recurrent, unspecified 57930. Other acute postprocedural pain . Other mental disorders complicating , unspecified trimester . Post-traumatic stress disorder, unspecified . Triplet , trichorionic/triamniotic, unspecified trimester 03/08/2022 13:39 [facility] [place] TYPE: [facility]omens Services COMPLAINT: - early labor DIAGNOSES: - early labor [email or web address]
[2022-10-13] MEDS ORDERED: PROTONIX40 MG PO (14:29)
[2022-10-13] MEDS ORDERED: CARAFATE1 GM PO (14:29)
[2022-10-13 14:50] VITALS: BP 113/66
== END 2022-10-13 14:50 | disposition home or self-care (01) ==
LOC: ED 13:00
DX: R10.13 Epigastric pain (principal); Z91.030 Bee allergy status; Z88.8 Allergy status to other drugs, medicaments and biological substances; Z79.899 Other long term (current) drug therapy
CPT/HCPCS: 36415; 80053; 81001; 83735; 84703; 85025; 96361; 96374; 99284 25; J2405; J7121

== ENCOUNTER 2022-11-03 15:00 | Emergency (ER) | payer OTHER ==
[~2022-11-03] VITALS: Ht 167.6 cm; Wt 63.5 kg
--- OUTSIDE RECORDS SUMMARY | ~2022-11-03 | XMS | Continuity of Care Document ---
Demographics + + + | Address | [address] | | | [place] [address] | + + + | Preferred Language | Unknown | + + + | Marital Status | Never | + + + | Restoration Affiliation | Unknown | + + + | Race | White | + + + | Ethnic Group | Not or | + + + Author + + + | Author | [facility] | + + + | Organization | [facility] | + + + | Address | [address] | | | [place] [address] | + + + | Phone | | + + + Care Team Providers + + + + | Care Credit Manager Name | Role | Phone | + + + + Unavailable | Unavailable | + + + + Unavailable | Unavailable | + + + + Unavailable | Unavailable | + + + + Unavailable | Unavailable | + + + + Unavailable | Unavailable | + + + + Allergies and Intolerances + + + + + + | date | description | facility | reaction | severity | + + + + + + | (no date) | Mild | [facility] | (no reaction) | (no severity) | | | [facility] | | | + + + + + + | (no date) | Wasp venom | [facility] | (no reaction) | (no severity) | | | | [facility] | | | + + + + + + | (no date) | [place] | [facility] | (no reaction) | (no severity) | | | | [facility] | | | + + + + + + | (no date) | [place] | [facility] | (no reaction) | (no severity) | | | | [facility] | | | + + + + + + | (no date) | lithium | [facility] | (no reaction) | (no severity) | | | | [facility] | | | + + + + + + | (no date) | [place] | [facility] | (no reaction) | (no severity) | | | | [facility] | | | + + + + + + | (no date) | lithium | [facility] | (no reaction) | (no severity) | + + + + + + | (no date) | venom-wasp | [facility] | (no reaction) | (no severity) | + + + + + + | (no date) | Wasp venom | [facility] | (no reaction) | (no severity) | | | | [facility] | | | + + + + + + | (no date) | venom-wasp | [facility] | (no reaction) | (no severity) | | | | [facility] | | | + + + + + + Encounters No information. Functional Status No information. Immunizations + + + + | date | description | facility | + + + + | 2019-08-24 00:00 | Tdap | [facility] | + + + + | 2019-08-24 00:00 | Tdap | [facility] | + + + + | 2019-08-24 00:00 | Tdap | [facility] | + + + + | 2022-10-13 00:00 | No vaccine administered | [facility] | + + + + Medications + + + + | date | description | facility | + + + + | 2021-11-05 00:00 | DIPHENHYDRAMINE HCL | [facility] | + + + + | 2021-12-15 00:00 | DIPHENHYDRAMINE HCL | [facility] | + + + + | 2022-01-09 00:00 | DIPHENHYDRAMINE HCL | [facility] | + + + + | 2022-02-18 00:00 | DIPHENHYDRAMINE HCL | [facility] | + + + + | 2022-10-07 00:00 | DIPHENHYDRAMINE HCL | [facility] | + + + + | 2022-10-13 00:00 | DIPHENHYDRAMINE HCL | [facility] | + + + + | 2022-10-13 00:00 | diphenhydramine | [facility] | | | hydrochloride 25 MG Oral | | | | Capsule | | + + + + | 2021-10-16 00:00 | DOXYLAMINE/PYRIDOXINE HCL | [facility] | + + + + | 2021-10-16 00:00 | DOXYLAMINE/PYRIDOXINE HCL | [facility] | + + + + | 2021-10-18 00:00 | ASENAPINE MALEATE | [facility] | + + + + | 2021-10-24 00:00 | ASENAPINE MALEATE | [facility] | + + + + | 2021-11-05 00:00 | ASENAPINE MALEATE | [facility] | + + + + | 2021-12-15 00:00 | ASENAPINE MALEATE | [facility] | + + + + | 2022-01-09 00:00 | ASENAPINE MALEATE | [facility] | + + + + | 2022-02-18 00:00 | ASENAPINE MALEATE | [facility] | + + + + | 2022-10-07 00:00 | ASENAPINE MALEATE | [facility] | + + + + | 2022-10-13 00:00 | ASENAPINE MALEATE | [facility] | + + + + | 2022-10-13 00:00 | asenapine 2.5 MG | [facility] | | | Sublingual Tablet [Saphris] | | | | | | + + + + | 2021-12-15 00:00 | ONDANSETRON HCL | [facility] | + + + + | 2022-02-18 00:00 | SUCRALFATE | [facility] | + + + + | 2022-10-13 00:00 | SUCRALFATE | [facility] | + + + + | 2022-10-13 00:00 | sucralfate 1000 MG Oral | [facility] | | | Tablet [Carafate] | | + + + + | 2018-01-16 00:00 | BENZONATATE | [facility] | + + + + | 2018-01-16 00:00 | BENZONATATE | [facility] | + + + + | 2018-01-16 00:00 | BENZONATATE | [facility] | + + + + | 2018-01-16 00:00 | benzonatate 100 MG Oral | [facility] | | | Capsule [Tesalbert Perles] | | + + + + | 2019-08-19 00:00 | CEPHALEXIN | [facility] | + + + + | 2019-08-19 00:00 | CEPHALEXIN | [facility] | + + + + | 2019-08-19 00:00 | CEPHALEXIN | [facility] | + + + + | 2019-08-19 00:00 | cephalexin 500 MG Oral | [facility] | | | Capsule [Keflex] | | + + + + | 2018-05-08 00:00 | AZITHROMYCIN | [facility] | + + + + | 2018-05-08 00:00 | AZITHROMYCIN | [facility] | + + + + | 2018-05-08 00:00 | AZITHROMYCIN | [facility] | + + + + | 2021-10-18 00:00 | AZITHROMYCIN | [facility] | + + + + | 2021-10-24 00:00 | AZITHROMYCIN | [facility] | + + + + | 2021-11-05 00:00 | AZITHROMYCIN | [facility] | + + + + | 2021-12-15 00:00 | AZITHROMYCIN | [facility] | + + + + | 2022-01-09 00:00 | AZITHROMYCIN | [facility] | + + + + | 2022-02-18 00:00 | AZITHROMYCIN | [facility] | + + + + | 2022-10-07 00:00 | AZITHROMYCIN | [facility] | + + + + | 2022-10-13 00:00 | AZITHROMYCIN | [facility] | + + + + | 2018-05-08 00:00 | azithromycin 250 MG Oral | [facility] | | | Tablet [Zithromax] | | + + + + | 2022-10-13 00:00 | azithromycin 250 MG Oral | [facility] | | | Tablet [Zithromax] | | + + + + | 2021-07-06 00:00 | PANTOPRAZOLE SODIUM | [facility] | + + + + | 2021-07-06 00:00 | PANTOPRAZOLE SODIUM | [facility] | + + + + | 2021-07-06 00:00 | PANTOPRAZOLE SODIUM | [facility] | + + + + | 2022-10-13 00:00 | PANTOPRAZOLE SODIUM | [facility] | + + + + | 2021-07-06 00:00 | pantoprazole 40 MG Delayed | [facility] | | | Release Oral Tablet | | | | [Protonix] | | + + + + | 2022-10-13 00:00 | pantoprazole 40 MG Delayed | [facility] | | | Release Oral Tablet | | | | [Protonix] | | + + + + | 2022-02-18 00:00 | FAMOTIDINE | [facility] | + + + + | 2022-10-07 00:00 | FAMOTIDINE | [facility] | + + + + | 2021-11-05 00:00 | FOLIC ACID | [facility] | + + + + | 2021-12-15 00:00 | FOLIC ACID | [facility] | + + + + | 2022-01-09 00:00 | FOLIC ACID | [facility] | + + + + | 2022-02-18 00:00 | FOLIC ACID | [facility] | + + + + | 2022-10-07 00:00 | FOLIC ACID | [facility] | + + + + | 2022-10-13 00:00 | FOLIC ACID | [facility] | + + + + | 2022-10-13 00:00 | folic acid 1 MG Oral | [facility] | | | Tablet | | + + + + | 2021-10-18 00:00 | GABAPENTIN | [facility] | + + + + | 2021-10-24 00:00 | GABAPENTIN | [facility] | + + + + | 2021-11-05 00:00 | GABAPENTIN | [facility] | + + + + | 2021-12-15 00:00 | GABAPENTIN | [facility] | + + + + | 2022-01-09 00:00 | GABAPENTIN | [facility] | + + + + | 2022-02-18 00:00 | GABAPENTIN | [facility] | + + + + | 2022-10-07 00:00 | GABAPENTIN | [facility] | + + + + | 2022-10-13 00:00 | GABAPENTIN | [facility] | + + + + | 2022-10-13 00:00 | gabapentin 100 MG Oral | [facility] | | | Capsule | | + + + + | 2021-11-05 00:00 | METOCLOPRAMIDE HCL | [facility] | + + + + | 2021-12-15 00:00 | METOCLOPRAMIDE HCL | [facility] | + + + + | 2022-01-09 00:00 | METOCLOPRAMIDE HCL | [facility] | + + + + | 2022-02-18 00:00 | METOCLOPRAMIDE HCL | [facility] | + + + + | 2022-10-07 00:00 | METOCLOPRAMIDE HCL | [facility] | + + + + | 2022-10-13 00:00 | METOCLOPRAMIDE HCL | [facility] | + + + + | 2022-10-13 00:00 | metoclopramide 5 MG Oral | [facility] | | | Tablet | | + + + + | 2021-07-06 00:00 | ONDANSETRON | [facility] | + + + + | 2021-07-06 00:00 | ONDANSETRON | [facility] | + + + + | 2021-07-06 00:00 | ONDANSETRON | [facility] | + + + + | 2021-07-06 00:00 | ondansetron 8 MG | [facility] | | | Disintegrating Oral Tablet | | + + + + | 2018-05-08 00:00 | predniSONE | [facility] | + + + + | 2018-05-08 00:00 | predniSONE | [facility] | + + + + | 2018-05-08 00:00 | predniSONE | [facility] | + + + + | 2021-10-18 00:00 | predniSONE | [facility] | + + + + | 2021-10-24 00:00 | predniSONE | [facility] | + + + + | 2021-11-05 00:00 | predniSONE | [facility] | + + + + | 2021-12-15 00:00 | predniSONE | [facility] | + + + + | 2022-01-09 00:00 | predniSONE | [facility] | + + + + | 2022-02-18 00:00 | predniSONE | [facility] | + + + + | 2022-10-07 00:00 | predniSONE | [facility] | + + + + | 2022-10-13 00:00 | predniSONE | [facility] | + + + + | 2018-05-08 00:00 | prednisone 20 MG Oral | [facility] | | | Tablet | | + + + + | 2022-10-13 00:00 | prednisone 20 MG Oral | [facility] | | | Tablet | | + + + + | 2021-10-18 00:00 | ARIPIPRAZOLE | [facility] | + + + + | 2021-10-24 00:00 | ARIPIPRAZOLE | [facility] | + + + + | 2021-11-05 00:00 | ARIPIPRAZOLE | [facility] | + + + + | 2021-12-15 00:00 | ARIPIPRAZOLE | [facility] | + + + + | 2022-01-09 00:00 | ARIPIPRAZOLE | [facility] | + + + + | 2022-02-18 00:00 | ARIPIPRAZOLE | [facility] | + + + + | 2022-10-07 00:00 | ARIPIPRAZOLE | [facility] | + + + + | 2022-10-13 00:00 | ARIPIPRAZOLE | [facility] | + + + + | 2022-10-13 00:00 | aripiprazole 2 MG Oral | [facility] | | | Tablet [Abilify] | | + + + + | 2018-01-16 00:00 | ALBUTEROL SULFATE | [facility] | + + + + | 2018-01-16 00:00 | ALBUTEROL SULFATE | [facility] | + + + + | 2018-01-16 00:00 | ALBUTEROL SULFATE | [facility] | + + + + | 2018-01-16 00:00 | albuterol 0.83 MG/ML | [facility] | | | Inhalation Solution | | + + + + | 2021-10-18 00:00 | AMOXICILLIN/POTASSIUM CLAV | [facility] | | | | | + + + + | 2021-10-24 00:00 | AMOXICILLIN/POTASSIUM CLAV | [facility] | | | | | + + + + | 2021-11-05 00:00 | AMOXICILLIN/POTASSIUM CLAV | [facility] | | | | | + + + + | 2021-12-15 00:00 | AMOXICILLIN/POTASSIUM CLAV | [facility] | | | | | + + + + | 2022-01-09 00:00 | AMOXICILLIN/POTASSIUM CLAV | [facility] | | | | | + + + + | 2022-02-18 00:00 | AMOXICILLIN/POTASSIUM CLAV | [facility] | | | | | + + + + | 2022-10-07 00:00 | AMOXICILLIN/POTASSIUM CLAV | [facility] | | | | | + + + + | 2022-10-13 00:00 | AMOXICILLIN/POTASSIUM CLAV | [facility] | | | | | + + + + | 2022-10-13 00:00 | amoxicillin 875 MG / | [facility] | | | clavulanate 125 MG Oral | | | | Tablet [Augment | | + + + + | 2021-10-18 00:00 | TRAZODONE HCL | [facility] | + + + + | 2021-10-24 00:00 | TRAZODONE HCL | [facility] | + + + + | 2021-11-05 00:00 | TRAZODONE HCL | [facility] | + + + + | 2021-12-15 00:00 | TRAZODONE HCL | [facility] | + + + + | 2022-01-09 00:00 | TRAZODONE HCL | [facility] | + + + + | 2022-02-18 00:00 | TRAZODONE HCL | [facility] | + + + + | 2022-10-07 00:00 | TRAZODONE HCL | [facility] | + + + + | 2022-10-13 00:00 | TRAZODONE HCL | [facility] | + + + + | 2022-10-13 00:00 | trazodone hydrochloride 50 | [facility] | | | MG Oral Tablet | | + + + + | 2018-05-08 00:00 | ALBUTEROL SULFATE | [facility] | + + + + | 2018-05-08 00:00 | ALBUTEROL SULFATE | [facility] | + + + + | 2018-05-08 00:00 | ALBUTEROL SULFATE | [facility] | + + + + | 2021-10-18 00:00 | ALBUTEROL SULFATE | [facility] | + + + + | 2021-10-24 00:00 | ALBUTEROL SULFATE | [facility] | + + + + | 2021-11-05 00:00 | ALBUTEROL SULFATE | [facility] | + + + + | 2021-12-15 00:00 | ALBUTEROL SULFATE | [facility] | + + + + | 2022-01-09 00:00 | ALBUTEROL SULFATE | [facility] | + + + + | 2022-02-18 00:00 | ALBUTEROL SULFATE | [facility] | + + + + | 2022-10-07 00:00 | ALBUTEROL SULFATE | [facility] | + + + + | 2022-10-13 00:00 | ALBUTEROL SULFATE | [facility] | + + + + | 2018-05-08 00:00 | [id number] ACTUAT | [facility] | | | albuterol 0.09 MG/ACTUAT | | | | Metered Dose I | | + + + + | 2022-10-13 00:00 | [id number] 200 ACTUAT | [facility] | | | albuterol 0.09 MG/ACTUAT | | | | Metered Dose I | | + + + + | 2021-10-18 00:00 | CLONIDINE HCL | [facility] | + + + + | 2021-10-24 00:00 | CLONIDINE HCL | [facility] | + + + + | 2021-11-05 00:00 | CLONIDINE HCL | [facility] | + + + + | 2021-12-15 00:00 | CLONIDINE HCL | [facility] | + + + + | 2022-01-09 00:00 | CLONIDINE HCL | [facility] | + + + + | 2022-02-18 00:00 | CLONIDINE HCL | [facility] | + + + + | 2022-10-07 00:00 | CLONIDINE HCL | [facility] | + + + + | 2022-10-13 00:00 | CLONIDINE HCL | [facility] | + + + + | 2022-10-13 00:00 | clonidine hydrochloride | [facility] | | | 0.2 MG Oral Tablet | | | | [Catapres] | | + + + + | 2021-10-16 00:00 | PROMETHAZINE HCL | [facility] | + + + + | 2021-10-16 00:00 | PROMETHAZINE HCL | [facility] | + + + + | 2022-02-18 00:00 | PROMETHAZINE HCL | [facility] | + + + + Problems + + + + | date | description | facility | + + + + | 2014-01-22 00:00 | Contusion of scalp | [facility] | + + + + | 2014-01-22 00:00 | Contusion of scalp | [facility] | + + + + | 2014-01-22 00:00 | Contusion of scalp | [facility] | + + + + | 2014-04-28 00:00 | Chest wall pain | [facility] | + + + + | 2014-04-28 00:00 | Chest wall pain | [facility] | + + + + | 2014-04-28 00:00 | Chest wall pain | [facility] | + + + + | 2017-07-08 00:00 | Intentional drug overdose | [facility] | + + + + | 2017-07-08 00:00 | Intentional drug overdose | [facility] | + + + + | 2017-07-08 00:00 | Intentional drug overdose | [facility] | + + + + | 2018-01-07 00:00 | Bronchitis | [facility] | + + + + | 2018-01-07 00:00 | Bronchitis | [facility] | + + + + | 2018-01-07 00:00 | Bronchitis | [facility] | + + + + | 2018-05-07 00:00 | Suicide attempt | [facility] | + + + + | 2018-05-07 00:00 | Attempted suicide | [facility] | + + + + | 2018-05-07 00:00 | Attempted suicide | [facility] | + + + + | 2018-05-07 00:00 | Attempted suicide | [facility] | + + + + | 2018-05-07 00:00 | Overdose of | [facility] | | | antihypertensive agent | | + + + + | 2018-05-07 00:00 | Overdose of | [facility] | | | antihypertensive agent | | + + + + | 2018-05-07 00:00 | Overdose of | [facility] | | | antihypertensive agent | | + + + + | 2019-01-06 00:00 | Methamphetamine abuse | [facility] | + + + + | 2019-01-06 00:00 | Methamphetamine abuse | [facility] | + + + + | 2019-01-06 00:00 | Methamphetamine abuse | [facility] | + + + + | 2019-03-20 00:00 | Overdose | [facility] | + + + + | 2019-03-20 00:00 | Substance abuse | [facility] | + + + + | 2019-03-20 00:00 | Substance abuse | [facility] | + + + + | 2019-03-20 00:00 | Substance abuse | [facility] | + + + + | 2019-03-20 00:00 | Drug overdose | [facility] | + + + + | 2019-03-20 00:00 | Drug overdose | [facility] | + + + + | 2019-03-20 00:00 | Drug overdose | [facility] | + + + + | 2019-04-13 00:00 | Sinus tachycardia | [facility] | + + + + | 2019-04-13 00:00 | Sinus tachycardia | [facility] | + + + + | 2019-04-13 00:00 | Sinus tachycardia | [facility] | + + + + | 2019-08-19 00:00 | UTI (urinary tract | [facility] | | | infection) | | + + + + | 2019-08-19 00:00 | Urinary tract infection | [facility] | + + + + | 2019-08-19 00:00 | Urinary tract infection | [facility] | + + + + | 2019-08-19 00:00 | Urinary tract infection | [facility] | + + + + | 2021-04-25 00:00 | COVID | [facility] | + + + + | 2021-04-25 00:00 | Infection due to severe | [facility] | | | acute respiratory syndrome | | | | coronavirus 2 (SARS-CoV-2) | | + + + + | 2021-04-25 00:00 | Infection due to severe | [facility] | | | acute respiratory syndrome | | | | coronavirus 2 (SARS-CoV-2) | | + + + + | 2021-04-25 00:00 | Infection due to severe | [facility] | | | acute respiratory syndrome | | | | coronavirus 2 (SARS-CoV-2) | | + + + + | 2021-08-29 00:00 | Threatened | [facility] | + + + + | 2021-08-29 00:00 | Threatened | [facility] | + + + + | 2021-08-29 00:00 | Threatened | [facility] | + + + + | 2021-09-10 00:00 | Tear of meniscus of left | [facility] | | | knee | | + + + + | 2021-09-10 00:00 | Tear of meniscus of left | [facility] | | | knee | | + + + + | 2021-09-10 00:00 | Tear of meniscus of left | [facility] | | | knee | | + + + + | 2021-10-16 00:00 | Multiple gestation | [facility] | + + + + | 2021-10-16 00:00 | Multiple gestation | [facility] | + + + + | 2021-10-16 00:00 | Multiple gestation | [facility] | + + + + | 2021-10-16 00:00 | Abdominal pain | [facility] | + + + + | 2021-10-16 00:00 | Abdominal pain | [facility] | + + + + | 2021-10-16 00:00 | Abdominal pain | [facility] | + + + + | 2021-10-16 00:00 | Vomiting | [facility] | + + + + | 2021-10-16 00:00 | Vomiting | [facility] | + + + + | 2021-10-16 00:00 | Vomiting | [facility] | + + + + | 2021-11-01 00:00 | Venus-Chapa tear | [facility] | + + + + | 2021-11-01 00:00 | Venus-Chapa tear | [facility] | + + + + | 2021-11-09 00:00 | Patient left without being | [facility] | | | seen | | + + + + | 2021-11-09 00:00 | Patient left without being | [facility] | | | seen | | + + + + | 2021-12-15 00:00 | Hyperemesis gravidarum | [facility] | | | before end of 22 week | | | | gestation with dehydration | | + + + + | 2021-12-15 00:00 | Hyperemesis gravidarum | [facility] | | | before end of 22 week | | | | gestation with dehydration | | + + + + | 2022-02-18 00:00 | Hyperemesis gravidarum | [facility] | + + + + | 2022-02-18 00:00 | Hyperemesis gravidarum | [facility] | + + + + | 2022-03-08 05:45 | TRIPLET PREG, UNSP NUM | [facility] | | | PLCNTA AMNIO SACS, FIRST | | | | TRIMESTER | | + + + + | 2022-03-08 05:45 | 14 WEEKS GESTATION OF | [facility] | | | | | + + + + | 2022-10-07 00:00 | Hallucinogen overdose | [facility] | + + + + | 2022-10-07 00:00 | Hallucinogen overdose | [facility] | + + + + | 2022-10-07 00:00 | Overdose of undetermined | [facility] | | | intent | | + + + + | 2022-10-07 00:00 | Overdose of undetermined | [facility] | | | intent | | + + + + | 2022-10-07 03:34 | OTHER FATIGUE | [facility] | + + + + | 2022-10-07 03:34 | POISONING BY OTH | [facility] | | | PSYCHODYSLEPT, ACCIDENTAL, | | | | INIT | | + + + + | 2022-10-07 03:34 | OTHER RETIREMENT (CURRENT) | [facility] | | | DRUG THERAPY | | + + + + | 2022-10-07 03:34 | ALLERGY STATUS TO OTH | [facility] | | | DRUG/MEDS/BIOL SUBST STATUS | | | | | | + + + + | 2022-10-07 03:34 | BEE ALLERGY STATUS | [facility] | + + + + | 2022-10-13 00:00 | Epigastric pain | [facility] | + + + + | 2022-10-13 13:02 | EPIGASTRIC PAIN | [facility] | + + + + | 2022-10-13 13:02 | NAUSEA WITH VOMITING, | [facility] | | | UNSPECIFIED | | + + + + | 2022-10-13 13:02 | OTHER CHIEF PORT DIRECTOR (CURRENT) | [facility] | | | DRUG THERAPY | | + + + + | 2022-10-13 13:02 | ALLERGY STATUS TO OTH | [facility] | | | DRUG/MEDS/BIOL SUBST STATUS | | | | | | + + + + | 2022-10-13 13:02 | ALLERGY TO EGGS | [facility] | + + + + | 2022-10-13 13:02 | BEE ALLERGY STATUS | [facility] | + + + + Procedures No information. Results/Labs +--------+--------+ +---------+--------+---------+ | test | date | facility | value | unit | notes | +--------+--------+ +---------+--------+---------+ + + | Result panel 1 | + + + + + +-------+---------+ + | | 2021-07-06 | [facility] | 1.9 | mg/dL | (missing) | | (unavailable | 00:42 | [facility] | | | | + + + +-------+---------+ + + + | Result panel 2 | + + + + + +------+ + + | | 2021-07-06 | [facility] | 55 | (missing) | (missing) | | (unavailable | 00:42 | [facility] | | | | + + + +------+ + + + + | Result panel 3 | + + + + + +-------+---------+ + | | 2021-07-06 | [facility] | 1.9 | mg/dL | (missing) | | (unavailable | 00:42 | [facility] | | | | + + + +-------+---------+ + + + | Result panel 4 | + + + + + +------+ + + | | 2021-07-06 | [facility] | 55 | (missing) | (missing) | | (unavailable | 00:42 | [facility] | | | | + + + +------+ + + + + | Result panel 5 | + + + + + +-------+---------+ + | | 2021-07-06 | [facility] | 1.9 | mg/dL | (missing) | | (unavailable | 00:42 | [facility] | | | | + + + +-------+---------+ + + + | Result panel 6 | + + + + + +------+ + + | | 2021-07-06 | [facility] | 55 | (missing) | (missing) | | (unavailable | 00:42 | [facility] | | | | + + + +------+ + + + + | Result panel 7 | + + + + + + + + + | | 2021-08-29 | [facility] | [id number] | (missing) | (missing) | | (unavailable | 13:44 | [facility] | | | | + + + + + + + + + | Result panel 8 | + + + + + + + + + | | 2021-08-29 | [facility] | [id number] | (missing) | (missing) | | (unavailable | 13:44 | [facility] | | | | + + + + + + + + + | Result panel 9 | + + + + + + + + + | | 2021-08-29 | [facility] | [id number] | (missing) | (missing) | | (unavailable | 13:44 | [facility] | | | | + + + + + + + + + | Result panel 10 | + + + + + +---------+ + + | | 2021-08-29 | [facility] | 12-20 | (missing) | (missing) | | (unavailable | 13:57 | [facility] | | | | + + + +---------+ + + + + | Result panel 11 | + + + + + +-------+ + + | | 2021-08-29 | [facility] | 0-1 | (missing) | (missing) | | (unavailable | 13:57 | [facility] | | | | + + + +-------+ + + + + | Result panel 12 | + + + + + + + + + | | 2021-08-29 | [facility] | SQUAMOUS 1+ | (missing) | (missing) | | (unavailable | 13:57 | [facility] | | | | + + + + + + + + + | Result panel 13 | + + + + + + + + + | | 2021-08-29 | [facility] | NONE SEEN | (missing) | (missing) | | (unavailable | 13:57 | [facility] | | | | + + + + + + + + + | Result panel 14 | + + + + + +--------+ + + | | 2021-08-29 | [facility] | RARE | (missing) | (missing) | | (unavailable | 13:57 | [facility] | | | | + + + +--------+ + + + + | Result panel 15 | + + + + + + + + + | | 2021-08-29 | [facility] | NONE SEEN | (missing) | (missing) | | (unavailable | 13:57 | [facility] | | | | + + + + + + + + + | Result panel 16 | + + + + + +---------+ + + | | 2021-08-29 | [facility] | 12-20 | (missing) | (missing) | | (unavailable | 13:57 | [facility] | | | | + + + +---------+ + + + + | Result panel 17 | + + + + + +-------+ + + | | 2021-08-29 | [facility] | 0-1 | (missing) | (missing) | | (unavailable | 13:57 | [facility] | | | | + + + +-------+ + + + + | Result panel 18 | + + + + + + + + + | | 2021-08-29 | [facility] | SQUAMOUS 1+ | (missing) | (missing) | | (unavailable | 13:57 | [facility] | | | | + + + + + + + + + | Result panel 19 | + + + + + + + + + | | 2021-08-29 | [facility] | NONE SEEN | (missing) | (missing) | | (unavailable | 13:57 | [facility] | | | | + + + + + + + + + | Result panel 20 | + + + + + +--------+ + + | | 2021-08-29 | [facility] | RARE | (missing) | (missing) | | (unavailable | 13:57 | [facility] | | | | + + + +--------+ + + + + | Result panel 21 | + + + + + + + + + | | 2021-08-29 | [facility] | NONE SEEN | (missing) | (missing) | | (unavailable | 13:57 | [facility] | | | | + + + + + + + + + | Result panel 22 | + + + + + +---------+ + + | | 2021-08-29 | [facility] | 12-20 | (missing) | (missing) | | (unavailable | 13:57 | [facility] | | | | + + + +---------+ + + + + | Result panel 23 | + + + + + +-------+ + + | | 2021-08-29 | [facility] | 0-1 | (missing) | (missing) | | (unavailable | 13:57 | [facility] | | | | + + + +-------+ + + + + | Result panel 24 | + + + + + + + + + | | 2021-08-29 | [facility] | SQUAMOUS 1+ | (missing) | (missing) | | (unavailable | 13:57 | [facility] | | | | + + + + + + + + + | Result panel 25 | + + + + + + + + + | | 2021-08-29 | [facility] | NONE SEEN | (missing) | (missing) | | (unavailable | 13:57 | [facility] | | | | + + + + + + + + + | Result panel 26 | + + + + + +--------+ + + | | 2021-08-29 | [facility] | RARE | (missing) | (missing) | | (unavailable | 13:57 | [facility] | | | | + + + +--------+ + + + + | Result panel 27 | + + + + + + + + + | | 2021-08-29 | [facility] | NONE SEEN | (missing) | (missing) | | (unavailable | 13:57 | [facility] | | | | + + + + + + + + + | Result panel 28 | + + + + + +-----+ + + | | 2021-09-11 | [facility] | O | (missing) | (missing) | | (unavailable | 11:10 | [facility] | | | | + + + +-----+ + + + + | Result panel 29 | + + + + + + + + + | | 2021-09-11 | [facility] | NEGATIVE | (missing) | (missing) | | (unavailable | 11:10 | [facility] | | | | + + + + + + + + + | Result panel 30 | + + + + + + + + + | | 2021-09-11 | [facility] | POSITIVE | (missing) | (missing) | | (unavailable | 11:10 | [facility] | | | | + + + + + + + + + | Result panel 31 | + + + + + + + + + | | 2021-09-11 | [facility] | ANTI-D | (missing) | (missing) | | (unavailable | 11:10 | [facility] | | | | + + + + + + + + + | Result panel 32 | + + + + + + + + + | | 2021-09-11 | [facility] | BLOOD IN | (missing) | (missing) | | (unavailable | 11:10 | [facility] | | | | + + + + + + + + + | Result panel 33 | + + + + + +-----+ + + | | 2021-09-11 | [facility] | O | (missing) | (missing) | | (unavailable | 11:10 | [facility] | | | | + + + +-----+ + + + + | Result panel 34 | + + + + + + + + + | | 2021-09-11 | [facility] | NEGATIVE | (missing) | (missing) | | (unavailable | 11:10 | [facility] | | | | + + + + + + + + + | Result panel 35 | + + + + + + + + + | | 2021-09-11 | [facility] | POSITIVE | (missing) | (missing) | | (unavailable | 11:10 | [facility] | | | | + + + + + + + + + | Result panel 36 | + + + + + + + + + | | 2021-09-11 | [facility] | ANTI-D | (missing) | (missing) | | (unavailable | 11:10 | [facility] | | | | + + + + + + + + + | Result panel 37 | + + + + + + + + + | | 2021-09-11 | [facility] | BLOOD IN | (missing) | (missing) | | (unavailable | 11:10 | [facility] | | | | + + + + + + + + + | Result panel 38 | + + + + + +-----+ + + | | 2021-09-11 | [facility] | O | (missing) | (missing) | | (unavailable | 11:10 | [facility] | | | | + + + +-----+ + + + + | Result panel 39 | + + + + + + + + + | | 2021-09-11 | [facility] | NEGATIVE | (missing) | (missing) | | (unavailable | 11:10 | [facility] | | | | + + + + + + + + + | Result panel 40 | + + + + + + + + + | | 2021-09-11 | [facility] | POSITIVE | (missing) | (missing) | | (unavailable | 11:10 | [facility] | | | | + + + + + + + + + | Result panel 41 | + + + + + + + + + | | 2021-09-11 | [facility] | ANTI-D | (missing) | (missing) | | (unavailable | 11:10 | [facility] | | | | + + + + + + + + + | Result panel 42 | + + + + + + + + + | | 2021-09-11 | [facility] | BLOOD IN | (missing) | (missing) | | (unavailable | 11:10 | [facility] | | | | + + + + + + + + + | Result panel 43 | + + + + + +-------+ + + | | 2021-10-16 | [facility] | 6.3 | (missing) | (missing) | | (unavailable | 17:22 | [facility] | | | | + + + +-------+ + + + + | Result panel 44 | + + + + + +--------+ + + | | 2021-10-16 | [facility] | 4.28 | (missing) | (missing) | | (unavailable | 17:22 | [facility] | | | | + + + +--------+ + + + + | Result panel 45 | + + + + + +--------+ + + | | 2021-10-16 | [facility] | 13.4 | (missing) | (missing) | | (unavailable | 17:22 | [facility] | | | | + + + +--------+ + + + + | Result panel 46 | + + + + + +--------+ + + | | 2021-10-16 | [facility] | 39.1 | (missing) | (missing) | | (unavailable | 17:22 | [facility] | | | | + + + +--------+ + + + + | Result panel 47 | + + + + + +--------+ + + | | 2021-10-16 | [facility] | 91.3 | (missing) | (missing) | | (unavailable | 17:22 | [facility] | | | | + + + +--------+ + + + + | Result panel 48 | + + + + + +--------+ + + | | 2021-10-16 | [facility] | 31.2 | (missing) | (missing) | | (unavailable | 17:22 | [facility] | | | | + + + +--------+ + + + + | Result panel 49 | + + + + + +--------+ + + | | 2021-10-16 | [facility] | 34.2 | (missing) | (missing) | | (unavailable | 17:22 | [facility] | | | | + + + +--------+ + + + + | Result panel 50 | + + + + + +--------+ + + | | 2021-10-16 | [facility] | 13.0 | (missing) | (missing) | | (unavailable | 17:22 | [facility] | | | | + + + +--------+ + + + + | Result panel 51 | + + + + + +-------+ + + | | 2021-10-16 | [facility] | 216 | (missing) | (missing) | | (unavailable | 17:22 | [facility] | | | | + + + +-------+ + + + + | Result panel 52 | + + + + + +--------+ + + | | 2021-10-16 | [facility] | 58.9 | (missing) | (missing) | | (unavailable | 17:22 | [facility] | | | | + + + +--------+ + + + + | Result panel 53 | + + + + + +--------+ + + | | 2021-10-16 | [facility] | 28.8 | (missing) | (missing) | | (unavailable | 17:22 | [facility] | | | | + + + +--------+ + + + + | Result panel 54 | + + + + + +-------+ + + | | 2021-10-16 | [facility] | 8.8 | (missing) | (missing) | | (unavailable | 17:22 | [facility] | | | | + + + +-------+ + + + + | Result panel 55 | + + + + + +-------+ + + | | 2021-10-16 | [facility] | 2.8 | (missing) | (missing) | | (unavailable | 17:22 | [facility] | | | | + + + +-------+ + + + + | Result panel 56 | + + + + + +-------+ + + | | 2021-10-16 | [facility] | 0.7 | (missing) | (missing) | | (unavailable | 17:22 | [facility] | | | | + + + +-------+ + + + + | Result panel 57 | + + + + + +------+---------+ + | | 2021-10-16 | [facility] | 88 | mg/dL | (missing) | | (unavailable | 17:22 | [facility] | | | | + + + +------+---------+ + + + | Result panel 58 | + + + + + +------+---------+ + | | 2021-10-16 | [facility] | 11 | mg/dL | (missing) | | (unavailable | 17:22 | [facility] | | | | + + + +------+---------+ + + + | Result panel 59 | + + + + + +--------+---------+ + | | 2021-10-16 | [facility] | 0.71 | mg/dL | (missing) | | (unavailable | 17:22 | [facility] | | | | + + + +--------+---------+ + + + | Result panel 60 | + + + + + +-------+ + + | | 2021-10-16 | [facility] | 126 | (missing) | (missing) | | (unavailable | 17:22 | [facility] | | | | + + + +-------+ + + + + | Result panel 61 | + + + + + +---------+ + + | | 2021-10-16 | [facility] | 15.49 | (missing) | (missing) | | (unavailable | 17:22 | [facility] | | | | + + + +---------+ + + + + | Result panel 62 | + + + + + +-------+ + + | | 2021-10-16 | [facility] | 138 | (missing) | (missing) | | (unavailable | 17:22 | [facility] | | | | + + + +-------+ + + + + | Result panel 63 | + + + + + +-------+ + + | | 2021-10-16 | [facility] | 3.9 | (missing) | (missing) | | (unavailable | 17:22 | [facility] | | | | + + + +-------+ + + + + | Result panel 64 | + + + + + +-------+ + + | | 2021-10-16 | [facility] | 103 | (missing) | (missing) | | (unavailable | 17:22 | [facility] | | | | + + + +-------+ + + + + | Result panel 65 | + + + + + +------+ + + | | 2021-10-16 | [facility] | 28 | (missing) | (missing) | | (unavailable | 17:22 | [facility] | | | | + + + +------+ + + + + | Result panel 66 | + + + + + +--------+ + + | | 2021-10-16 | [facility] | 10.9 | (missing) | (missing) | | (unavailable | 17:22 | [facility] | | | | + + + +--------+ + + + + | Result panel 67 | + + + + + +-------+---------+ + | | 2021-10-16 | [facility] | 9.0 | mg/dL | (missing) | | (unavailable | 17:22 | [facility] | | | | + + + +-------+---------+ + + + | Result panel 68 | + + + + + +-------+ + + | | 2021-10-16 | [facility] | 7.4 | (missing) | (missing) | | (unavailable | 17:22 | [facility] | | | | + + + +-------+ + + + + | Result panel 69 | + + + + + +-------+ + + | | 2021-10-16 | [facility] | 4.2 | (missing) | (missing) | | (unavailable | 17:22 | [facility] | | | | + + + +-------+ + + + + | Result panel 70 | + + + + + +-------+ + + | | 2021-10-16 | [facility] | 3.2 | (missing) | (missing) | | (unavailable | 17:22 | [facility] | | | | + + + +-------+ + + + + | Result panel 71 | + + + + + +--------+ + + | | 2021-10-16 | [facility] | 1.31 | (missing) | (missing) | | (unavailable | 17:22 | [facility] | | | | + + + +--------+ + + + + | Result panel 72 | + + + + + +-------+ + + | | 2021-10-16 | [facility] | 0.7 | (missing) | (missing) | | (unavailable | 17:22 | [facility] | | | | + + + +-------+ + + + + | Result panel 73 | + + + + + +------+ + + | | 2021-10-16 | [facility] | 11 | (missing) | (missing) | | (unavailable | 17:22 | [facility] | | | | + + + +------+ + + + + | Result panel 74 | + + + + + +------+ + + | | 2021-10-16 | [facility] | 15 | (missing) | (missing) | | (unavailable | 17:22 | [facility] | | | | + + + +------+ + + + + | Result panel 75 | + + + + + +------+ + + | | 2021-10-16 | [facility] | 58 | (missing) | (missing) | | (unavailable | 17:22 | [facility] | | | | + + + +------+ + + + + | Result panel 76 | + + + + + +---------+ + + | | 2021-10-16 | [facility] | [id number] | (missing) | (missing) | | (unavailable | 17:22 | [facility] | | | | + + + +---------+ + + + + | Result panel 77 | + + + + + + + + + | | 2021-10-16 | [facility] | POSITIVE | (missing) | (missing) | | (unavailable | 17:22 | [facility] | | | | + + + + + + + + + | Result panel 78 | + + + + + +---------+ + + | | 2021-10-16 | [facility] | [address] | (missing) | (missing) | | (unavailable | 17:22 | [facility] | | | | + + + +---------+ + + + + | Result panel 79 | + + + + + + + + + | | 2021-10-16 | [facility] | POSITIVE | (missing) | (missing) | | (unavailable | 17:22 | [facility] | | | | + + + + + + + + + | Result panel 80 | + + + + + +---------+ + + | | 2021-10-16 | [facility] | [address] | (missing) | (missing) | | (unavailable | 17:22 | [facility] | | | | + + + +---------+ + + + + | Result panel 81 | + + + + + + + + + | | 2021-10-16 | [facility] | POSITIVE | (missing) | (missing) | | (unavailable | 17:22 | [facility] | | | | + + + + + + + + + | Result panel 82 | + + + + + + + + + | | 2021-10-16 | [facility] | YELLOW | (missing) | (missing) | | (unavailable | 19:15 | [facility] | | | | + + + + + + + + + | Result panel 83 | + + + + + +---------+ + + | | 2021-10-16 | [facility] | CLEAR | (missing) | (missing) | | (unavailable | 19:15 | [facility] | | | | + + + +---------+ + + + + | Result panel 84 | + + + + + + + + + | | 2021-10-16 | [facility] | NEGATIVE | (missing) | (missing) | | (unavailable | 19:15 | [facility] | | | | + + + + + + + + + | Result panel 85 | + + + + + + + + + | | 2021-10-16 | [facility] | NEGATIVE | (missing) | (missing) | | (unavailable | 19:15 | [facility] | | | | + + + + + + + + + | Result panel 86 | + + + + + +---------+ + + | | 2021-10-16 | [facility] | TRACE | (missing) | (missing) | | (unavailable | 19:15 | [facility] | | | | + + + +---------+ + + + + | Result panel 87 | + + + + + + + + + | | 2021-10-16 | [facility] | >=1.030 | (missing) | (missing) | | (unavailable | 19:15 | [facility] | | | | + + + + + + + + + | Result panel 88 | + + + + + + + + + | | 2021-10-16 | [facility] | NEGATIVE | (missing) | (missing) | | (unavailable | 19:15 | [facility] | | | | + + + + + + + + + | Result panel 89 | + + + + + +-------+ + + | | 2021-10-16 | [facility] | 6.0 | (missing) | (missing) | | (unavailable | 19:15 | [facility] | | | | + + + +-------+ + + + + | Result panel 90 | + + + + + + + + + | | 2021-10-16 | [facility] | NEGATIVE | (missing) | (missing) | | (unavailable | 19:15 | [facility] | | | | + + + + + + + + + | Result panel 91 | + + + + + + + + + | | 2021-10-16 | [facility] | NORMAL | (missing) | (missing) | | (unavailable | 19:15 | [facility] | | | | + + + + + + + + + | Result panel 92 | + + + + + + + + + | | 2021-10-16 | [facility] | NEGATIVE | (missing) | (missing) | | (unavailable | 19:15 | [facility] | | | | + + + + + + + + + | Result panel 93 | + + + + + + + + + | | 2021-10-16 | [facility] | NEGATIVE | (missing) | (missing) | | (unavailable | 19:15 | [facility] | | | | + + + + + + + + + | Result panel 94 | + + + + + +------+ + + | | 2021-10-16 | [facility] | No | (missing) | (missing) | | (unavailable | 19:15 | [facility] | | | | + + + +------+ + + + + | Result panel 95 | + + + + + + + + + | | 2021-10-16 | [facility] | CLEAN CATCH | (missing) | (missing) | | (unavailable | 19:15 | [facility] | | | | + + + + + + + + + | Result panel 96 | + + + + + + + + + | | 2021-10-16 | [facility] | YELLOW | (missing) | (missing) | | (unavailable | 19:15 | [facility] | | | | + + + + + + + + + | Result panel 97 | + + + + + +---------+ + + | | 2021-10-16 | [facility] | CLEAR | (missing) | (missing) | | (unavailable | 19:15 | [facility] | | | | + + + +---------+ + + + + | Result panel 98 | + + + + + + + + + | | 2021-10-16 | [facility] | NEGATIVE | (missing) | (missing) | | (unavailable | 19:15 | [facility] | | | | + + + + + + + + + | Result panel 99 | + + + + + + + + + | | 2021-10-16 | [facility] | NEGATIVE | (missing) | (missing) | | (unavailable | 19:15 | [facility] | | | | + + + + + + + + + | Result panel 100 | + + + + + +---------+ + + | | 2021-10-16 | [facility] | TRACE | (missing) | (missing) | | (unavailable | 19:15 | [facility] | | | | + + + +---------+ + + + + | Result panel 101 | + + + + + + + + + | | 2021-10-16 | [facility] | >=1.030 | (missing) | (missing) | | (unavailable | 19:15 | [facility] | | | | + + + + + + + + + | Result panel 102 | + + + + + + + + + | | 2021-10-16 | [facility] | NEGATIVE | (missing) | (missing) | | (unavailable | 19:15 | [facility] | | | | + + + + + + + + + | Result panel 103 | + + + + + +-------+ + + | | 2021-10-16 | [facility] | 6.0 | (missing) | (missing) | | (unavailable | 19:15 | [facility] | | | | + + + +-------+ + + + + | Result panel 104 | + + + + + + + + + | | 2021-10-16 | [facility] | NEGATIVE | (missing) | (missing) | | (unavailable | 19:15 | [facility] | | | | + + + + + + + + + | Result panel 105 | + + + + + + + + + | | 2021-10-16 | [facility] | NORMAL | (missing) | (missing) | | (unavailable | 19:15 | [facility] | | | | + + + + + + + + + | Result panel 106 | + + + + + + + + + | | 2021-10-16 | [facility] | NEGATIVE | (missing) | (missing) | | (unavailable | 19:15 | [facility] | | | | + + + + + + + + + | Result panel 107 | + + + + + + + + + | | 2021-10-16 | [facility] | NEGATIVE | (missing) | (missing) | | (unavailable | 19:15 | [facility] | | | | + + + + + + + + + | Result panel 108 | + + + + + +------+ + + | | 2021-10-16 | [facility] | No | (missing) | (missing) | | (unavailable | 19:15 | [facility] | | | | + + + +------+ + + + + | Result panel 109 | + + + + + + + + + | | 2021-10-16 | [facility] | CLEAN CATCH | (missing) | (missing) | | (unavailable | 19:15 | [facility] | | | | + + + + + + + + + | Result panel 110 | + + + + + + + + + | | 2021-10-16 | [facility] | YELLOW | (missing) | (missing) | | (unavailable | 19:15 | [facility] | | | | + + + + + + + + + | Result panel 111 | + + + + + +---------+ + + | | 2021-10-16 | [facility] | CLEAR | (missing) | (missing) | | (unavailable | 19:15 | [facility] | | | | + + + +---------+ + + + + | Result panel 112 | + + + + + + + + + | | 2021-10-16 | [facility] | NEGATIVE | (missing) | (missing) | | (unavailable | 19:15 | [facility] | | | | + + + + + + + + + | Result panel 113 | + + + + + + + + + | | 2021-10-16 | [facility] | NEGATIVE | (missing) | (missing) | | (unavailable | 19:15 | [facility] | | | | + + + + + + + + + | Result panel 114 | + + + + + +---------+ + + | | 2021-10-16 | [facility] | TRACE | (missing) | (missing) | | (unavailable | 19:15 | [facility] | | | | + + + +---------+ + + + + | Result panel 115 | + + + + + + + + + | | 2021-10-16 | [facility] | >=1.030 | (missing) | (missing) | | (unavailable | 19:15 | [facility] | | | | + + + + + + + + + | Result panel 116 | + + + + + + + + + | | 2021-10-16 | [facility] | NEGATIVE | (missing) | (missing) | | (unavailable | 19:15 | [facility] | [facility] | | | | + + + + + + + + + | Result panel 117 | + + + + + +-------+ + + | | 2021-10-16 | [facility] | 6.0 | (missing) | (missing) | | (unavailable | 19:15 | [facility] | | | | + + + +-------+ + + + + | Result panel 118 | + + + + + + + + + | | 2021-10-16 | [facility] | NEGATIVE | (missing) | (missing) | | (unavailable | 19:15 | [facility] | | | | + + + + + + + + + | Result panel 119 | + + + + + + + + + | | 2021-10-16 | [facility] | NORMAL | (missing) | (missing) | | (unavailable | 19:15 | [facility] | | | | + + + + + + + + + | Result panel 120 | + + + + + + + + + | | 2021-10-16 | [facility] | NEGATIVE | (missing) | (missing) | | (unavailable | 19:15 | [facility] | | | | + + + + + + + + + | Result panel 121 | + + + + + + + + + | | 2021-10-16 | [facility] | NEGATIVE | (missing) | (missing) | | (unavailable | 19:15 | [facility] | | | | + + + + + + + + + | Result panel 122 | + + + + + +------+ + + | | 2021-10-16 | [facility] | No | (missing) | (missing) | | (unavailable | 19:15 | [facility] | | | | + + + +------+ + + + + | Result panel 123 | + + + + + + + + + | | 2021-10-16 | [facility] | CLEAN CATCH | (missing) | (missing) | | (unavailable | 19:15 | [facility] | | | | + + + + + + + + + | Result panel 124 | + + + + + +-------+ + + | | 2021-10-24 | [facility] | 5.8 | (missing) | (missing) | | (unavailable | 10:25 | [facility] | | | | + + + +-------+ + + + + | Result panel 125 | + + + + + +--------+ + + | | 2021-10-24 | [facility] | 3.66 | (missing) | (missing) | | (unavailable | 10:25 | [facility] | | | | + + + +--------+ + + + + | Result panel 126 | + + + + + +--------+ + + | | 2021-10-24 | [facility] | 11.5 | (missing) | (missing) | | (unavailable | 10:25 | [facility] | | | | + + + +--------+ + + + + | Result panel 127 | + + + + + +--------+ + + | | 2021-10-24 | [facility] | 33.3 | (missing) | (missing) | | (unavailable | 10:25 | [facility] | | | | + + + +--------+ + + + + | Result panel 128 | + + + + + +--------+ + + | | 2021-10-24 | [facility] | 91.0 | (missing) | (missing) | | (unavailable | 10:25 | [facility] | | | | + + + +--------+ + + + + | Result panel 129 | + + + + + +--------+ + + | | 2021-10-24 | [facility] | 31.3 | (missing) | (missing) | | (unavailable | 10:25 | [facility] | | | | + + + +--------+ + + + + | Result panel 130 | + + + + + +--------+ + + | | 2021-10-24 | [facility] | 34.5 | (missing) | (missing) | | (unavailable | 10:25 | [facility] | | | | + + + +--------+ + + + + | Result panel 131 | + + + + + +--------+ + + | | 2021-10-24 | [facility] | 12.8 | (missing) | (missing) | | (unavailable | 10:25 | [facility] | | | | + + + +--------+ + + + + | Result panel 132 | + + + + + +-------+ + + | | 2021-10-24 | [facility] | 169 | (missing) | (missing) | | (unavailable | 10:25 | [facility] | | | | + + + +-------+ + + + + | Result panel 133 | + + + + + +--------+ + + | | 2021-10-24 | [facility] | 66.9 | (missing) | (missing) | | (unavailable | 10:25 | [facility] | | | | + + + +--------+ + + + + | Result panel 134 | + + + + + +--------+ + + | | 2021-10-24 | [facility] | 22.6 | (missing) | (missing) | | (unavailable | 10:25 | [facility] | | | | + + + +--------+ + + + + | Result panel 135 | + + + + + +-------+ + + | | 2021-10-24 | [facility] | 8.6 | (missing) | (missing) | | (unavailable | 10:25 | [facility] | | | | + + + +-------+ + + + + | Result panel 136 | + + + + + +-------+ + + | | 2021-10-24 | [facility] | 1.6 | (missing) | (missing) | | (unavailable | 10:25 | [facility] | | | | + + + +-------+ + + + + | Result panel 137 | + + + + + +-------+ + + | | 2021-10-24 | [facility] | 0.3 | (missing) | (missing) | | (unavailable | 10:25 | [facility] | | | | + + + +-------+ + + + + | Result panel 138 | + + + + + +------+---------+ + | | 2021-10-24 | [facility] | 76 | mg/dL | (missing) | | (unavailable | 10:25 | [facility] | | | | + + + +------+---------+ + + + | Result panel 139 | + + + + + +------+---------+ + | | 2021-10-24 | [facility] | 11 | mg/dL | (missing) | | (unavailable | 10:25 | [facility] | | | | + + + +------+---------+ + + + | Result panel 140 | + + + + + +--------+---------+ + | | 2021-10-24 | [facility] | 0.70 | mg/dL | (missing) | | (unavailable | 10:25 | [facility] | | | | + + + +--------+---------+ + + + | Result panel 141 | + + + + + +-------+ + + | | 2021-10-24 | [facility] | 128 | (missing) | (missing) | | (unavailable | 10:25 | [facility] | | | | + + + +-------+ + + + + | Result panel 142 | + + + + + +---------+ + + | | 2021-10-24 | [facility] | 15.71 | (missing) | (missing) | | (unavailable | 10:25 | [facility] | | | | + + + +---------+ + + + + | Result panel 143 | + + + + + +-------+ + + | | 2021-10-24 | [facility] | 136 | (missing) | (missing) | | (unavailable | 10:25 | [facility] | | | | + + + +-------+ + + + + | Result panel 144 | + + + + + +-------+ + + | | 2021-10-24 | [facility] | 3.6 | (missing) | (missing) | | (unavailable | 10:25 | [facility] | | | | + + + +-------+ + + + + | Result panel 145 | + + + + + +-------+ + + | | 2021-10-24 | [facility] | 101 | (missing) | (missing) | | (unavailable | 10:25 | [facility] | | | | + + + +-------+ + + + + | Result panel 146 | + + + + + +------+ + + | | 2021-10-24 | [facility] | 25 | (missing) | (missing) | | (unavailable | 10:25 | [facility] | | | | + + + +------+ + + + + | Result panel 147 | + + + + + +--------+ + + | | 2021-10-24 | [facility] | 13.6 | (missing) | (missing) | | (unavailable | 10:25 | [facility] | | | | + + + +--------+ + + + + | Result panel 148 | + + + + + +-------+---------+ + | | 2021-10-24 | [facility] | 8.0 | mg/dL | (missing) | | (unavailable | 10:25 | [facility] | | | | + + + +-------+---------+ + + + | Result panel 149 | + + + + + +-------+ + + | | 2021-10-24 | [facility] | 6.5 | (missing) | (missing) | | (unavailable | 10:25 | [facility] | | | | + + + +-------+ + + + + | Result panel 150 | + + + + + +-------+ + + | | 2021-10-24 | [facility] | 3.8 | (missing) | (missing) | | (unavailable | 10:25 | [facility] | | | | + + + +-------+ + + + + | Result panel 151 | + + + + + +-------+ + + | | 2021-10-24 | [facility] | 2.7 | (missing) | (missing) | | (unavailable | 10:25 | [facility] | | | | + + + +-------+ + + + + | Result panel 152 | + + + + + +--------+ + + | | 2021-10-24 | [facility] | 1.41 | (missing) | (missing) | | (unavailable | 10:25 | [facility] | | | | + + + +--------+ + + + + | Result panel 153 | + + + + + +-------+ + + | | 2021-10-24 | [facility] | 0.5 | (missing) | (missing) | | (unavailable | 10:25 | [facility] | | | | + + + +-------+ + + + + | Result panel 154 | + + + + + +------+ + + | | 2021-10-24 | [facility] | 10 | (missing) | (missing) | | (unavailable | 10:25 | [facility] | | | | + + + +------+ + + + + | Result panel 155 | + + + + + +------+ + + | | 2021-10-24 | [facility] | 12 | (missing) | (missing) | | (unavailable | 10:25 | [facility] | | | | + + + +------+ + + + + | Result panel 156 | + + + + + +------+ + + | | 2021-10-24 | [facility] | 47 | (missing) | (missing) | | (unavailable | 10:25 | [facility] | | | | + + + +------+ + + + + | Result panel 157 | + + + + + + + + + | | 2021-10-24 | [facility] | NEGATIVE | (missing) | (missing) | | (unavailable | 10:25 | [facility] | | | | + + + + + + + + + | Result panel 158 | + + + + + + + + + | | 2021-10-24 | [facility] | NEGATIVE | (missing) | (missing) | | (unavailable | 10:25 | [facility] | | | | + + + + + + + + + | Result panel 159 | + + + + + + + + + | | 2021-10-24 | [facility] | NEGATIVE | (missing) | (missing) | | (unavailable | 10:25 | [facility] | | | | + + + + + + + + + | Result panel 160 | + + + + + + + + + | | 2021-10-24 | [facility] | NEGATIVE | (missing) | (missing) | | (unavailable | 10:25 | [facility] | | | | + + + + + + + + + | Result panel 161 | + + + + + +------+---------+ + | | 2021-10-24 | [facility] | 76 | mg/dL | (missing) | | (unavailable | 10:25 | [facility] | | | | + + + +------+---------+ + + + | Result panel 162 | + + + + + +------+---------+ + | | 2021-10-24 | [facility] | 11 | mg/dL | (missing) | | (unavailable | 10:25 | [facility] | | | | + + + +------+---------+ + + + | Result panel 163 | + + + + + +--------+---------+ + | | 2021-10-24 | [facility] | 0.70 | mg/dL | (missing) | | (unavailable | 10:25 | [facility] | | | | + + + +--------+---------+ + + + | Result panel 164 | + + + + + +-------+ + + | | 2021-10-24 | [facility] | 128 | (missing) | (missing) | | (unavailable | 10:25 | [facility] | | | | + + + +-------+ + + + + | Result panel 165 | + + + + + +---------+ + + | | 2021-10-24 | [facility] | 15.71 | (missing) | (missing) | | (unavailable | 10:25 | [facility] | | | | + + + +---------+ + + + + | Result panel 166 | + + + + + +-------+ + + | | 2021-10-24 | [facility] | 136 | (missing) | (missing) | | (unavailable | 10:25 | [facility] | | | | + + + +-------+ + + + + | Result panel 167 | + + + + + +-------+ + + | | 2021-10-24 | [facility] | 3.6 | (missing) | (missing) | | (unavailable | 10:25 | [facility] | | | | + + + +-------+ + + + + | Result panel 168 | + + + + + +-------+ + + | | 2021-10-24 | [facility] | 101 | (missing) | (missing) | | (unavailable | 10:25 | [facility] | | | | + + + +-------+ + + + + | Result panel 169 | + + + + + +------+ + + | | 2021-10-24 | [facility] | 25 | (missing) | (missing) | | (unavailable | 10:25 | [facility] | | | | + + + +------+ + + + + | Result panel 170 | + + + + + +--------+ + + | | 2021-10-24 | [facility] | 13.6 | (missing) | (missing) | | (unavailable | 10:25 | [facility] | | | | + + + +--------+ + + + + | Result panel 171 | + + + + + +-------+---------+ + | | 2021-10-24 | [facility] | 8.0 | mg/dL | (missing) | | (unavailable | 10:25 | [facility] | | | | + + + +-------+---------+ + + + | Result panel 172 | + + + + + +-------+ + + | | 2021-10-24 | [facility] | 6.5 | (missing) | (missing) | | (unavailable | 10:25 | [facility] | | | | + + + +-------+ + + + + | Result panel 173 | + + + + + +-------+ + + | | 2021-10-24 | [facility] | 3.8 | (missing) | (missing) | | (unavailable | 10:25 | [facility] | | | | + + + +-------+ + + + + | Result panel 174 | + + + + + +-------+ + + | | 2021-10-24 | [facility] | 2.7 | (missing) | (missing) | | (unavailable | 10:25 | [facility] | | | | + + + +-------+ + + + + | Result panel 175 | + + + + + +--------+ + + | | 2021-10-24 | [facility] | 1.41 | (missing) | (missing) | | (unavailable | 10:25 | [facility] | | | | + + + +--------+ + + + + | Result panel 176 | + + + + + +-------+ + + | | 2021-10-24 | [facility] | 0.5 | (missing) | (missing) | | (unavailable | 10:25 | [facility] | | | | + + + +-------+ + + + + | Result panel 177 | + + + + + +------+ + + | | 2021-10-24 | [facility] | 10 | (missing) | (missing) | | (unavailable | 10:25 | [facility] | | | | + + + +------+ + + + + | Result panel 178 | + + + + + +------+ + + | | 2021-10-24 | [facility] | 12 | (missing) | (missing) | | (unavailable | 10:25 | [facility] | | | | + + + +------+ + + + + | Result panel 179 | + + + + + +------+ + + | | 2021-10-24 | [facility] | 47 | (missing) | (missing) | | (unavailable | 10:25 | [facility] | | | | + + + +------+ + + + + | Result panel 180 | + + + + + + + + + | | 2021-10-24 | [facility] | NEGATIVE | (missing) | (missing) | | (unavailable | 10:25 | [facility] | | | | + + + + + + + + + | Result panel 181 | + + + + + + + + + | | 2021-10-24 | [facility] | NEGATIVE | (missing) | (missing) | | (unavailable | 10:25 | [facility] | | | | + + + + + + + + + | Result panel 182 | + + + + + + + + + | | 2021-10-24 | [facility] | NEGATIVE | (missing) | (missing) | | (unavailable | 10:25 | [facility] | | | | + + + + + + + + + | Result panel 183 | + + + + + + + + + | | 2021-10-24 | [facility] | NEGATIVE | (missing) | (missing) | | (unavailable | 10:25 | [facility] | | | | + + + + + + + + + | Result panel 184 | + + + + + +-------+ + + | | 2021-11-01 | [facility] | 8.1 | (missing) | (missing) | | (unavailable | 00:32 | [facility] | | | | + + + +-------+ + + + + | Result panel 185 | + + + + + +--------+ + + | | 2021-11-01 | [facility] | 3.68 | (missing) | (missing) | | (unavailable | 00:32 | [facility] | | | | + + + +--------+ + + + + | Result panel 186 | + + + + + +--------+ + + | | 2021-11-01 | [facility] | 11.6 | (missing) | (missing) | | (unavailable | 00:32 | [facility] | | | | + + + +--------+ + + + + | Result panel 187 | + + + + + +--------+ + + | | 2021-11-01 | [facility] | 33.5 | (missing) | (missing) | | (unavailable | 00:32 | [facility] | | | | + + + +--------+ + + + + | Result panel 188 | + + + + + +--------+ + + | | 2021-11-01 | [facility] | 91.0 | (missing) | (missing) | | (unavailable | 00:32 | [facility] | | | | + + + +--------+ + + + + | Result panel 189 | + + + + + +--------+ + + | | 2021-11-01 | [facility] | 31.6 | (missing) | (missing) | | (unavailable | 00:32 | [facility] | | | | + + + +--------+ + + + + | Result panel 190 | + + + + + +--------+ + + | | 2021-11-01 | [facility] | 34.7 | (missing) | (missing) | | (unavailable | 00:32 | [facility] | | | | + + + +--------+ + + + + | Result panel 191 | + + + + + +--------+ + + | | 2021-11-01 | [facility] | 12.6 | (missing) | (missing) | | (unavailable | 00:32 | [facility] | | | | + + + +--------+ + + + + | Result panel 192 | + + + + + +-------+ + + | | 2021-11-01 | [facility] | 180 | (missing) | (missing) | | (unavailable | 00:32 | [facility] | | | | + + + +-------+ + + + + | Result panel 193 | + + + + + +--------+ + + | | 2021-11-01 | [facility] | 56.3 | (missing) | (missing) | | (unavailable | 00:32 | [facility] | | | | + + + +--------+ + + + + | Result panel 194 | + + + + + +--------+ + + | | 2021-11-01 | [facility] | 31.4 | (missing) | (missing) | | (unavailable | 00:32 | [facility] | | | | + + + +--------+ + + + + | Result panel 195 | + + + + + +-------+ + + | | 2021-11-01 | [facility] | 8.8 | (missing) | (missing) | | (unavailable | 00:32 | [facility] | | | | + + + +-------+ + + + + | Result panel 196 | + + + + + +-------+ + + | | 2021-11-01 | [facility] | 3.1 | (missing) | (missing) | | (unavailable | 00:32 | [facility] | | | | + + + +-------+ + + + + | Result panel 197 | + + + + + +-------+ + + | | 2021-11-01 | [facility] | 0.4 | (missing) | (missing) | | (unavailable | 00:32 | [facility] | | | | + + + +-------+ + + + + | Result panel 198 | + + + + + +--------+ + + | | 2021-11-01 | [facility] | 7.34 | (missing) | (missing) | | (unavailable | 00:32 | [facility] | | | | + + + +--------+ + + + + | Result panel 199 | + + + + + +--------+ + + | | 2021-12-15 | [facility] | 11.3 | (missing) | (missing) | | (unavailable | 18:33 | [facility] | | | | + + + +--------+ + + + + | Result panel 200 | + + + + + +--------+ + + | | 2021-12-15 | [facility] | 3.53 | (missing) | (missing) | | (unavailable | 18:33 | [facility] | | | | + + + +--------+ + + + + | Result panel 201 | + + + + + +--------+ + + | | 2021-12-15 | [facility] | 11.4 | (missing) | (missing) | | (unavailable | 18:33 | [facility] | | | | + + + +--------+ + + + + | Result panel 202 | + + + + + +--------+ + + | | 2021-12-15 | [facility] | 31.9 | (missing) | (missing) | | (unavailable | 18:33 | [facility] | | | | + + + +--------+ + + + + | Result panel 203 | + + + + + +--------+ + + | | 2021-12-15 | [facility] | 90.2 | (missing) | (missing) | | (unavailable | 18:33 | [facility] | | | | + + + +--------+ + + + + | Result panel 204 | + + + + + +--------+ + + | | 2021-12-15 | [facility] | 32.4 | (missing) | (missing) | | (unavailable | 18:33 | [facility] | | | | + + + +--------+ + + + + | Result panel 205 | + + + + + +--------+ + + | | 2021-12-15 | [facility] | 35.9 | (missing) | (missing) | | (unavailable | 18:33 | [facility] | | | | + + + +--------+ + + + + | Result panel 206 | + + + + + +--------+ + + | | 2021-12-15 | [facility] | 13.1 | (missing) | (missing) | | (unavailable | 18:33 | [facility] | | | | + + + +--------+ + + + + | Result panel 207 | + + + + + +-------+ + + | | 2021-12-15 | [facility] | 193 | (missing) | (missing) | | (unavailable | 18:33 | [facility] | | | | + + + +-------+ + + + + | Result panel 208 | + + + + + +--------+ + + | | 2021-12-15 | [facility] | 73.9 | (missing) | (missing) | | (unavailable | 18:33 | [facility] | | | | + + + +--------+ + + + + | Result panel 209 | + + + + + +--------+ + + | | 2021-12-15 | [facility] | 17.0 | (missing) | (missing) | | (unavailable | 18:33 | [facility] | | | | + + + +--------+ + + + + | Result panel 210 | + + + + + +-------+ + + | | 2021-12-15 | [facility] | 7.4 | (missing) | (missing) | | (unavailable | 18:33 | [facility] | | | | + + + +-------+ + + + + | Result panel 211 | + + + + + +-------+ + + | | 2021-12-15 | [facility] | 1.3 | (missing) | (missing) | | (unavailable | 18:33 | [facility] | | | | + + + +-------+ + + + + | Result panel 212 | + + + + + +-------+ + + | | 2021-12-15 | [facility] | 0.4 | (missing) | (missing) | | (unavailable | 18:33 | [facility] | | | | + + + +-------+ + + + + | Result panel 213 | + + + + + +------+---------+ + | | 2021-12-15 | [facility] | 90 | mg/dL | (missing) | | (unavailable | 18:33 | [facility] | | | | + + + +------+---------+ + + + | Result panel 214 | + + + + + +------+---------+ + | | 2021-12-15 | [facility] | 14 | mg/dL | (missing) | | (unavailable | 18:33 | [facility] | | | | + + + +------+---------+ + + + | Result panel 215 | + + + + + +--------+---------+ + | | 2021-12-15 | [facility] | 0.59 | mg/dL | (missing) | | (unavailable | 18:33 | [facility] | | | | + + + +--------+---------+ + + + | Result panel 216 | + + + + + +-------+ + + | | 2021-12-15 | [facility] | 133 | (missing) | (missing) | | (unavailable | 18:33 | [facility] | | | | + + + +-------+ + + + + | Result panel 217 | + + + + + +---------+ + + | | 2021-12-15 | [facility] | 23.72 | (missing) | (missing) | | (unavailable | 18:33 | [facility] | | | | + + + +---------+ + + + + | Result panel 218 | + + + + + +-------+ + + | | 2021-12-15 | [facility] | 135 | (missing) | (missing) | | (unavailable | 18:33 | [facility] | | | | + + + +-------+ + + + + | Result panel 219 | + + + + + +-------+ + + | | 2021-12-15 | [facility] | 3.6 | (missing) | (missing) | | (unavailable | 18:33 | [facility] | | | | + + + +-------+ + + + + | Result panel 220 | + + + + + +-------+ + + | | 2021-12-15 | [facility] | 102 | (missing) | (missing) | | (unavailable | 18:33 | [facility] | | | | + + + +-------+ + + + + | Result panel 221 | + + + + + +------+ + + | | 2021-12-15 | [facility] | 25 | (missing) | (missing) | | (unavailable | 18:33 | [facility] | | | | + + + +------+ + + + + | Result panel 222 | + + + + + +--------+ + + | | 2021-12-15 | [facility] | 11.6 | (missing) | (missing) | | (unavailable | 18:33 | [facility] | | | | + + + +--------+ + + + + | Result panel 223 | + + + + + +-------+---------+ + | | 2021-12-15 | [facility] | 8.7 | mg/dL | (missing) | | (unavailable | 18:33 | [facility] | | | | + + + +-------+---------+ + + + | Result panel 224 | + + + + + +-------+ + + | | 2021-12-15 | [facility] | 7.3 | (missing) | (missing) | | (unavailable | 18:33 | [facility] | | | | + + + +-------+ + + + + | Result panel 225 | + + + + + +-------+ + + | | 2021-12-15 | [facility] | 3.5 | (missing) | (missing) | | (unavailable | 18:33 | [facility] | | | | + + + +-------+ + + + + | Result panel 226 | + + + + + +-------+ + + | | 2021-12-15 | [facility] | 3.8 | (missing) | (missing) | | (unavailable | 18:33 | [facility] | | | | + + + +-------+ + + + + | Result panel 227 | + + + + + +--------+ + + | | 2021-12-15 | [facility] | 0.92 | (missing) | (missing) | | (unavailable | 18:33 | [facility] | | | | + + + +--------+ + + + + | Result panel 228 | + + + + + +-------+ + + | | 2021-12-15 | [facility] | 0.2 | (missing) | (missing) | | (unavailable | 18:33 | [facility] | | | | + + + +-------+ + + + + | Result panel 229 | + + + + + +------+ + + | | 2021-12-15 | [facility] | 12 | (missing) | (missing) | | (unavailable | 18:33 | [facility] | | | | + + + +------+ + + + + | Result panel 230 | + + + + + +------+ + + | | 2021-12-15 | [facility] | 14 | (missing) | (missing) | | (unavailable | 18:33 | [facility] | | | | + + + +------+ + + + + | Result panel 231 | + + + + + +------+ + + | | 2021-12-15 | [facility] | 53 | (missing) | (missing) | | (unavailable | 18:33 | [facility] | | | | + + + +------+ + + + + | Result panel 232 | + + + + + + + + + | | 2021-12-15 | [facility] | [id number] | (missing) | (missing) | | (unavailable | 18:33 | [facility] | | | | + + + + + + + + + | Result panel 233 | + + + + + +--------+ + + | | 2021-12-15 | [facility] | 11.3 | (missing) | (missing) | | (unavailable | 18:33 | [facility] | | | | + + + +--------+ + + + + | Result panel 234 | + + + + + +--------+ + + | | 2021-12-15 | [facility] | 3.53 | (missing) | (missing) | | (unavailable | 18:33 | [facility] | | | | + + + +--------+ + + + + | Result panel 235 | + + + + + +--------+ + + | | 2021-12-15 | [facility] | 11.4 | (missing) | (missing) | | (unavailable | 18:33 | [facility] | | | | + + + +--------+ + + + + | Result panel 236 | + + + + + +--------+ + + | | 2021-12-15 | [facility] | 31.9 | (missing) | (missing) | | (unavailable | 18:33 | [facility] | | | | + + + +--------+ + + + + | Result panel 237 | + + + + + +--------+ + + | | 2021-12-15 | [facility] | 90.2 | (missing) | (missing) | | (unavailable | 18:33 | [facility] | | | | + + + +--------+ + + + + | Result panel 238 | + + + + + +--------+ + + | | 2021-12-15 | [facility] | 32.4 | (missing) | (missing) | | (unavailable | 18:33 | [facility] | | | | + + + +--------+ + + + + | Result panel 239 | + + + + + +--------+ + + | | 2021-12-15 | [facility] | 35.9 | (missing) | (missing) | | (unavailable | 18:33 | [facility] | | | | + + + +--------+ + + + + | Result panel 240 | + + + + + +--------+ + + | | 2021-12-15 | [facility] | 13.1 | (missing) | (missing) | | (unavailable | 18:33 | [facility] | | | | + + + +--------+ + + + + | Result panel 241 | + + + + + +-------+ + + | | 2021-12-15 | [facility] | 193 | (missing) | (missing) | | (unavailable | 18:33 | [facility] | | | | + + + +-------+ + + + + | Result panel 242 | + + + + + +--------+ + + | | 2021-12-15 | [facility] | 73.9 | (missing) | (missing) | | (unavailable | 18:33 | [facility] | | | | + + + +--------+ + + + + | Result panel 243 | + + + + + +--------+ + + | | 2021-12-15 | [facility] | 17.0 | (missing) | (missing) | | (unavailable | 18:33 | [facility] | | | | + + + +--------+ + + + + | Result panel 244 | + + + + + +-------+ + + | | 2021-12-15 | [facility] | 7.4 | (missing) | (missing) | | (unavailable | 18:33 | [facility] | | | | + + + +-------+ + + + + | Result panel 245 | + + + + + +-------+ + + | | 2021-12-15 | [facility] | 1.3 | (missing) | (missing) | | (unavailable | 18:33 | [facility] | | | | + + + +-------+ + + + + | Result panel 246 | + + + + + +-------+ + + | | 2021-12-15 | [facility] | 0.4 | (missing) | (missing) | | (unavailable | 18:33 | [facility] | | | | + + + +-------+ + + + + | Result panel 247 | + + + + + +------+---------+ + | | 2021-12-15 | [facility] | 90 | mg/dL | (missing) | | (unavailable | 18:33 | [facility] | | | | + + + +------+---------+ + + + | Result panel 248 | + + + + + +------+---------+ + | | 2021-12-15 | [facility] | 14 | mg/dL | (missing) | | (unavailable | 18:33 | [facility] | | | | + + + +------+---------+ + + + | Result panel 249 | + + + + + +--------+---------+ + | | 2021-12-15 | [facility] | 0.59 | mg/dL | (missing) | | (unavailable | 18:33 | [facility] | | | | + + + +--------+---------+ + + + | Result panel 250 | + + + + + +-------+ + + | | 2021-12-15 | [facility] | 133 | (missing) | (missing) | | (unavailable | 18:33 | [facility] | | | | + + + +-------+ + + + + | Result panel 251 | + + + + + +---------+ + + | | 2021-12-15 | [facility] | 23.72 | (missing) | (missing) | | (unavailable | 18:33 | [facility] | | | | + + + +---------+ + + + + | Result panel 252 | + + + + + +-------+ + + | | 2021-12-15 | [facility] | 135 | (missing) | (missing) | | (unavailable | 18:33 | [facility] | | | | + + + +-------+ + + + + | Result panel 253 | + + + + + +-------+ + + | | 2021-12-15 | [facility] | 3.6 | (missing) | (missing) | | (unavailable | 18:33 | [facility] | | | | + + + +-------+ + + + + | Result panel 254 | + + + + + +-------+ + + | | 2021-12-15 | [facility] | 102 | (missing) | (missing) | | (unavailable | 18:33 | [facility] | | | | + + + +-------+ + + + + | Result panel 255 | + + + + + +------+ + + | | 2021-12-15 | [facility] | 25 | (missing) | (missing) | | (unavailable | 18:33 | [facility] | | | | + + + +------+ + + + + | Result panel 256 | + + + + + +--------+ + + | | 2021-12-15 | [facility] | 11.6 | (missing) | (missing) | | (unavailable | 18:33 | [facility] | | | | + + + +--------+ + + + + | Result panel 257 | + + + + + +-------+---------+ + | | 2021-12-15 | [facility] | 8.7 | mg/dL | (missing) | | (unavailable | 18:33 | [facility] | | | | + + + +-------+---------+ + + + | Result panel 258 | + + + + + +-------+ + + | | 2021-12-15 | [facility] | 7.3 | (missing) | (missing) | | (unavailable | 18:33 | [facility] | | | | + + + +-------+ + + + + | Result panel 259 | + + + + + +-------+ + + | | 2021-12-15 | [facility] | 3.5 | (missing) | (missing) | | (unavailable | 18:33 | [facility] | | | | + + + +-------+ + + + + | Result panel 260 | + + + + + +-------+ + + | | 2021-12-15 | [facility] | 3.8 | (missing) | (missing) | | (unavailable | 18:33 | [facility] | | | | + + + +-------+ + + + + | Result panel 261 | + + + + + +--------+ + + | | 2021-12-15 | [facility] | 0.92 | (missing) | (missing) | | (unavailable | 18:33 | [facility] | | | | + + + +--------+ + + + + | Result panel 262 | + + + + + +-------+ + + | | 2021-12-15 | [facility] | 0.2 | (missing) | (missing) | | (unavailable | 18:33 | [facility] | | | | + + + +-------+ + + + + | Result panel 263 | + + + + + +------+ + + | | 2021-12-15 | [facility] | 12 | (missing) | (missing) | | (unavailable | 18:33 | [facility] | | | | + + + +------+ + + + + | Result panel 264 | + + + + + +------+ + + | | 2021-12-15 | [facility] | 14 | (missing) | (missing) | | (unavailable | 18:33 | [facility] | | | | + + + +------+ + + + + | Result panel 265 | + + + + + +------+ + + | | 2021-12-15 | [facility] | 53 | (missing) | (missing) | | (unavailable | 18:33 | [facility] | | | | + + + +------+ + + + + | Result panel 266 | + + + + + + + + + | | 2021-12-15 | [facility] | [id number] | (missing) | (missing) | | (unavailable | 18:33 | [facility] | | | | + + + + + + + + + | Result panel 267 | + + + + + + + + + | | 2021-12-15 | [facility] | YELLOW | (missing) | (missing) | | (unavailable | 18:45 | [facility] | | | | + + + + + + + + + | Result panel 268 | + + + + + +---------+ + + | | 2021-12-15 | [facility] | CLEAR | (missing) | (missing) | | (unavailable | 18:45 | [facility] | | | | + + + +---------+ + + + + | Result panel 269 | + + + + + + + + + | | 2021-12-15 | [facility] | NEGATIVE | (missing) | (missing) | | (unavailable | 18:45 | [facility] | | | | + + + + + + + + + | Result panel 270 | + + + + + + + + + | | 2021-12-15 | [facility] | NEGATIVE | (missing) | (missing) | | (unavailable | 18:45 | [facility] | | | | + + + + + + + + + | Result panel 271 | + + + + + + + + + | | 2021-12-15 | [facility] | NEGATIVE | (missing) | (missing) | | (unavailable | 18:45 | [facility] | | | | + + + + + + + + + | Result panel 272 | + + + + + +---------+ + + | | 2021-12-15 | [facility] | 1.020 | (missing) | (missing) | | (unavailable | 18:45 | [facility] | | | | + + + +---------+ + + + + | Result panel 273 | + + + + + + + + + | | 2021-12-15 | [facility] | NEGATIVE | (missing) | (missing) | | (unavailable | 18:45 | [facility] | | | | + + + + + + + + + | Result panel 274 | + + + + + +-------+ + + | | 2021-12-15 | [facility] | 6.5 | (missing) | (missing) | | (unavailable | 18:45 | [facility] | | | | + + + +-------+ + + + + | Result panel 275 | + + + + + + + + + | | 2021-12-15 | [facility] | NEGATIVE | (missing) | (missing) | | (unavailable | 18:45 | [facility] | | | | + + + + + + + + + | Result panel 276 | + + + + + + + + + | | 2021-12-15 | [facility] | NORMAL | (missing) | (missing) | | (unavailable | 18:45 | [facility] | | | | + + + + + + + + + | Result panel 277 | + + + + + + + + + | | 2021-12-15 | [facility] | NEGATIVE | (missing) | (missing) | | (unavailable | 18:45 | [facility] | | | | + + + + + + + + + | Result panel 278 | + + + + + + + + + | | 2021-12-15 | [facility] | NEGATIVE | (missing) | (missing) | | (unavailable | 18:45 | [facility] | | | | + + + + + + + + + | Result panel 279 | + + + + + + + + + | | 2021-12-15 | [facility] | YELLOW | (missing) | (missing) | | (unavailable | 18:45 | [facility] | | | | + + + + + + + + + | Result panel 280 | + + + + + +---------+ + + | | 2021-12-15 | [facility] | CLEAR | (missing) | (missing) | | (unavailable | 18:45 | [facility] | | | | + + + +---------+ + + + + | Result panel 281 | + + + + + + + + + | | 2021-12-15 | [facility] | NEGATIVE | (missing) | (missing) | | (unavailable | 18:45 | [facility] | | | | + + + + + + + + + | Result panel 282 | + + + + + + + + + | | 2021-12-15 | [facility] | NEGATIVE | (missing) | (missing) | | (unavailable | 18:45 | [facility] | | | | + + + + + + + + + | Result panel 283 | + + + + + + + + + | | 2021-12-15 | [facility] | NEGATIVE | (missing) | (missing) | | (unavailable | 18:45 | [facility] | | | | + + + + + + + + + | Result panel 284 | + + + + + +---------+ + + | | 2021-12-15 | [facility] | 1.020 | (missing) | (missing) | | (unavailable | 18:45 | [facility] | | | | + + + +---------+ + + + + | Result panel 285 | + + + + + + + + + | | 2021-12-15 | [facility] | NEGATIVE | (missing) | (missing) | | (unavailable | 18:45 | [facility] | | | | + + + + + + + + + | Result panel 286 | + + + + + +-------+ + + | | 2021-12-15 | [facility] | 6.5 | (missing) | (missing) | | (unavailable | 18:45 | [facility] | | | | + + + +-------+ + + + + | Result panel 287 | + + + + + + + + + | | 2021-12-15 | [facility] | NEGATIVE | (missing) | (missing) | | (unavailable | 18:45 | [facility] | | | | + + + + + + + + + | Result panel 288 | + + + + + + + + + | | 2021-12-15 | [facility] | NORMAL | (missing) | (missing) | | (unavailable | 18:45 | [facility] | | | | + + + + + + + + + | Result panel 289 | + + + + + + + + + | | 2021-12-15 | [facility] | NEGATIVE | (missing) | (missing) | | (unavailable | 18:45 | [facility] | | | | + + + + + + + + + | Result panel 290 | + + + + + + + + + | | 2021-12-15 | [facility] | NEGATIVE | (missing) | (missing) | | (unavailable | 18:45 | [facility] | | | | + + + + + + + + + | Result panel 291 | + + + + + +-------+ + + | | 2022-02-18 | [facility] | 9.7 | (missing) | (missing) | | (unavailable | 03:00 | [facility] | | | | + + + +-------+ + + + + | Result panel 292 | + + + + + +--------+ + + | | 2022-02-18 | [facility] | 3.42 | (missing) | (missing) | | (unavailable | 03:00 | [facility] | | | | + + + +--------+ + + + + | Result panel 293 | + + + + + +--------+ + + | | 2022-02-18 | [facility] | 11.2 | (missing) | (missing) | | (unavailable | 03:00 | [facility] | | | | + + + +--------+ + + + + | Result panel 294 | + + + + + +--------+ + + | | 2022-02-18 | [facility] | 31.6 | (missing) | (missing) | | (unavailable | 03:00 | [facility] | | | | + + + +--------+ + + + + | Result panel 295 | + + + + + +--------+ + + | | 2022-02-18 | [facility] | 92.4 | (missing) | (missing) | | (unavailable | 03:00 | [facility] | | | | + + + +--------+ + + + + | Result panel 296 | + + + + + +--------+ + + | | 2022-02-18 | [facility] | 32.7 | (missing) | (missing) | | (unavailable | 03:00 | [facility] | | | | + + + +--------+ + + + + | Result panel 297 | + + + + + +--------+ + + | | 2022-02-18 | [facility] | 35.5 | (missing) | (missing) | | (unavailable | 03:00 | [facility] | | | | + + + +--------+ + + + + | Result panel 298 | + + + + + +--------+ + + | | 2022-02-18 | [facility] | 12.9 | (missing) | (missing) | | (unavailable | 03:00 | [facility] | | | | + + + +--------+ + + + + | Result panel 299 | + + + + + +-------+ + + | | 2022-02-18 | [facility] | 190 | (missing) | (missing) | | (unavailable | 03:00 | [facility] | | | | + + + +-------+ + + + + | Result panel 300 | + + + + + +--------+ + + | | 2022-02-18 | [facility] | 67.4 | (missing) | (missing) | | (unavailable | 03:00 | [facility] | | | | + + + +--------+ + + + + | Result panel 301 | + + + + + +--------+ + + | | 2022-02-18 | [facility] | 21.2 | (missing) | (missing) | | (unavailable | 03:00 | [facility] | | | | + + + +--------+ + + + + | Result panel 302 | + + + + + +-------+ + + | | 2022-02-18 | [facility] | 8.9 | (missing) | (missing) | | (unavailable | 03:00 | [facility] | | | | + + + +-------+ + + + + | Result panel 303 | + + + + + +-------+ + + | | 2022-02-18 | [facility] | 1.9 | (missing) | (missing) | | (unavailable | 03:00 | [facility] | | | | + + + +-------+ + + + + | Result panel 304 | + + + + + +-------+ + + | | 2022-02-18 | [facility] | 0.6 | (missing) | (missing) | | (unavailable | 03:00 | [facility] | | | | + + + +-------+ + + + + | Result panel 305 | + + + + + + + + + | | 2022-02-18 | [facility] | YELLOW | (missing) | (missing) | | (unavailable | 03:00 | [facility] | | | | + + + + + + + + + | Result panel 306 | + + + + + +---------+ + + | | 2022-02-18 | [facility] | CLEAR | (missing) | (missing) | | (unavailable | 03:00 | [facility] | | | | + + + +---------+ + + + + | Result panel 307 | + + + + + + + + + | | 2022-02-18 | [facility] | NEGATIVE | (missing) | (missing) | | (unavailable | 03:00 | [facility] | | | | + + + + + + + + + | Result panel 308 | + + + + + + + + + | | 2022-02-18 | [facility] | NEGATIVE | (missing) | (missing) | | (unavailable | 03:00 | [facility] | | | | + + + + + + + + + | Result panel 309 | + + + + + + + + + | | 2022-02-18 | [facility] | NEGATIVE | (missing) | (missing) | | (unavailable | 03:00 | [facility] | | | | + + + + + + + + + | Result panel 310 | + + + + + + + + + | | 2022-02-18 | [facility] | <=1.005 | (missing) | (missing) | | (unavailable | 03:00 | [facility] | | | | + + + + + + + + + | Result panel 311 | + + + + + + + + + | | 2022-02-18 | [facility] | NEGATIVE | (missing) | (missing) | | (unavailable | 03:00 | [facility] | | | | + + + + + + + + + | Result panel 312 | + + + + + +-------+ + + | | 2022-02-18 | [facility] | 6.5 | (missing) | (missing) | | (unavailable | 03:00 | [facility] | | | | + + + +-------+ + + + + | Result panel 313 | + + + + + + + + + | | 2022-02-18 | [facility] | NEGATIVE | (missing) | (missing) | | (unavailable | 03:00 | [facility] | | | | + + + + + + + + + | Result panel 314 | + + + + + + + + + | | 2022-02-18 | [facility] | NORMAL | (missing) | (missing) | | (unavailable | 03:00 | [facility] | | | | + + + + + + + + + | Result panel 315 | + + + + + + + + + | | 2022-02-18 | [facility] | NEGATIVE | (missing) | (missing) | | (unavailable | 03:00 | [facility] | | | | + + + + + + + + + | Result panel 316 | + + + + + +---------+ + + | | 2022-02-18 | [facility] | SMALL | (missing) | (missing) | | (unavailable | 03:00 | [facility] | | | | + + + +---------+ + + + + | Result panel 317 | + + + + + +-------+ + + | | 2022-02-18 | [facility] | 2-3 | (missing) | (missing) | | (unavailable | 03:00 | [facility] | | | | + + + +-------+ + + + + | Result panel 318 | + + + + + +--------+ + + | | 2022-02-18 | [facility] | 7-11 | (missing) | (missing) | | (unavailable | 03:00 | [facility] | | | | + + + +--------+ + + + + | Result panel 319 | + + + + + + + + + | | 2022-02-18 | [facility] | SQUAMOUS 2+ | (missing) | (missing) | | (unavailable | 03:00 | [facility] | | | | + + + + + + + + + | Result panel 320 | + + + + + + + + + | | 2022-02-18 | [facility] | NONE SEEN | (missing) | (missing) | | (unavailable | 03:00 | [facility] | | | | + + + + + + + + + | Result panel 321 | + + + + + +------+ + + | | 2022-02-18 | [facility] | 1+ | (missing) | (missing) | | (unavailable | 03:00 | [facility] | | | | + + + +------+ + + + + | Result panel 322 | + + + + + + + + + | | 2022-02-18 | [facility] | NONE SEEN | (missing) | (missing) | | (unavailable | 03:00 | [facility] | | | | + + + + + + + + + | Result panel 323 | + + + + + +-------+ + + | | 2022-02-18 | [facility] | Yes | (missing) | (missing) | | (unavailable | 03:00 | [facility] | | | | + + + +-------+ + + + + | Result panel 324 | + + + + + + + + + | | 2022-02-18 | [facility] | CLEAN CATCH | (missing) | (missing) | | (unavailable | 03:00 | [facility] | | | | + + + + + + + + + | Result panel 325 | + + + + + +------+---------+ + | | 2022-02-18 | [facility] | 84 | mg/dL | (missing) | | (unavailable | 03:00 | [facility] | | | | + + + +------+---------+ + + + | Result panel 326 | + + + + + +------+---------+ + | | 2022-02-18 | [facility] | 10 | mg/dL | (missing) | | (unavailable | 03:00 | [facility] | | | | + + + +------+---------+ + + + | Result panel 327 | + + + + + +--------+---------+ + | | 2022-02-18 | [facility] | 0.53 | mg/dL | (missing) | | (unavailable | 03:00 | [facility] | | | | + + + +--------+---------+ + + + | Result panel 328 | + + + + + +-------+ + + | | 2022-02-18 | [facility] | 137 | (missing) | (missing) | | (unavailable | 03:00 | [facility] | | | | + + + +-------+ + + + + | Result panel 329 | + + + + + +---------+ + + | | 2022-02-18 | [facility] | 18.86 | (missing) | (missing) | | (unavailable | 03:00 | [facility] | | | | + + + +---------+ + + + + | Result panel 330 | + + + + + +-------+ + + | | 2022-02-18 | [facility] | 138 | (missing) | (missing) | | (unavailable | 03:00 | [facility] | | | | + + + +-------+ + + + + | Result panel 331 | + + + + + +-------+ + + | | 2022-02-18 | [facility] | 3.5 | (missing) | (missing) | | (unavailable | 03:00 | [facility] | | | | + + + +-------+ + + + + | Result panel 332 | + + + + + +-------+ + + | | 2022-02-18 | [facility] | 103 | (missing) | (missing) | | (unavailable | 03:00 | [facility] | | | | + + + +-------+ + + + + | Result panel 333 | + + + + + +------+ + + | | 2022-02-18 | [facility] | 23 | (missing) | (missing) | | (unavailable | 03:00 | [facility] | | | | + + + +------+ + + + + | Result panel 334 | + + + + + +--------+ + + | | 2022-02-18 | [facility] | 15.5 | (missing) | (missing) | | (unavailable | 03:00 | [facility] | | | | + + + +--------+ + + + + | Result panel 335 | + + + + + +-------+---------+ + | | 2022-02-18 | [facility] | 8.8 | mg/dL | (missing) | | (unavailable | 03:00 | [facility] | | | | + + + +-------+---------+ + + + | Result panel 336 | + + + + + +-------+ + + | | 2022-02-18 | [facility] | 7.0 | (missing) | (missing) | | (unavailable | 03:00 | [facility] | | | | + + + +-------+ + + + + | Result panel 337 | + + + + + +-------+ + + | | 2022-02-18 | [facility] | 3.4 | (missing) | (missing) | | (unavailable | 03:00 | [facility] | | | | + + + +-------+ + + + + | Result panel 338 | + + + + + +-------+ + + | | 2022-02-18 | [facility] | 3.6 | (missing) | (missing) | | (unavailable | 03:00 | [facility] | | | | + + + +-------+ + + + + | Result panel 339 | + + + + + +--------+ + + | | 2022-02-18 | [facility] | 0.94 | (missing) | (missing) | | (unavailable | 03:00 | [facility] | | | | + + + +--------+ + + + + | Result panel 340 | + + + + + +-------+ + + | | 2022-02-18 | [facility] | 0.3 | (missing) | (missing) | | (unavailable | 03:00 | [facility] | | | | + + + +-------+ + + + + | Result panel 341 | + + + + + +------+ + + | | 2022-02-18 | [facility] | 14 | (missing) | (missing) | | (unavailable | 03:00 | [facility] | | | | + + + +------+ + + + + | Result panel 342 | + + + + + +------+ + + | | 2022-02-18 | [facility] | 19 | (missing) | (missing) | | (unavailable | 03:00 | [facility] | | | | + + + +------+ + + + + | Result panel 343 | + + + + + +-------+ + + | | 2022-02-18 | [facility] | 104 | (missing) | (missing) | | (unavailable | 03:00 | [facility] | | | | + + + +-------+ + + + + | Result panel 344 | + + + + + +-------+ + + | | 2022-02-18 | [facility] | 118 | (missing) | (missing) | | (unavailable | 03:00 | [facility] | | | | + + + +-------+ + + + + | Result panel 345 | + + + + + + + + + | | 2022-02-18 | [facility] | NEGATIVE | (missing) | (missing) | | (unavailable | 03:00 | [facility] | | | | + + + + + + + + + | Result panel 346 | + + + + + + + + + | | 2022-02-18 | [facility] | NEGATIVE | (missing) | (missing) | | (unavailable | 03:00 | [facility] | | | | + + + + + + + + + | Result panel 347 | + + + + + + + + + | | 2022-02-18 | [facility] | NEGATIVE | (missing) | (missing) | | (unavailable | 03:00 | [facility] | | | | + + + + + + + + + | Result panel 348 | + + + + + + + + + | | 2022-02-18 | [facility] | NEGATIVE | (missing) | (missing) | | (unavailable | 03:00 | [facility] | | | | + + + + + + + + + | Result panel 349 | + + + + + + + + + | | 2022-02-18 | [facility] | NEGATIVE | (missing) | (missing) | | (unavailable | 03:00 | [facility] | | | | + + + + + + + + + | Result panel 350 | + + + + + + + + + | | 2022-02-18 | [facility] | NEGATIVE | (missing) | (missing) | | (unavailable | 03:00 | [facility] | | | | + + + + + + + + + | Result panel 351 | + + + + + + + + + | | 2022-02-18 | [facility] | NEGATIVE | (missing) | (missing) | | (unavailable | 03:00 | [facility] | | | | + + + + + + + + + | Result panel 352 | + + + + + + + + + | | 2022-02-18 | [facility] | NEGATIVE | (missing) | (missing) | | (unavailable | 03:00 | [facility] | | | | + + + + + + + + + | Result panel 353 | + + + + + + + + + | | 2022-02-18 | [facility] | NEGATIVE | (missing) | (missing) | | (unavailable | 03:00 | [facility] | | | | + + + + + + + + + | Result panel 354 | + + + + + + + + + | | 2022-02-18 | [facility] | NEGATIVE | (missing) | (missing) | | (unavailable | 03:00 | [facility] | | | | + + + + + + + + + | Result panel 355 | + + + + + + + + + | | 2022-02-18 | [facility] | NEGATIVE | (missing) | (missing) | | (unavailable | 03:00 | [facility] | | | | + + + + + + + + + | Result panel 356 | + + + + + + + + + | | 2022-02-18 | [facility] | NEGATIVE | (missing) | (missing) | | (unavailable | 03:00 | [facility] | | | | + + + + + + + + + | Result panel 357 | + + + + + + + + + | | 2022-02-18 | [facility] | NEGATIVE | (missing) | (missing) | | (unavailable | 03:00 | [facility] | | | | + + + + + + + + + | Result panel 358 | + + + + + +-----+ + + | | 2022-10-07 | [facility] | 0 | (missing) | (missing) | | Acetaminophe | 03:45 | [facility] | | | | | n | | [facility] | | | | | [Mass/volume | | | | | | | ] in Serum | | | | | | | or Plasma | | | | | | + + + +-----+ + + + + | Result panel 359 | + + + + + +------+ + + | | 2022-10-07 | [facility] | // | (missing) | (missing) | | Acetaminophe | 03:45 | [facility] | | | | | n [Mass] of | | Hospital | | | | | Dose | | | | | | + + + +------+ + + + + | Result panel 360 | + + + + + +-------+ + + | Serum or | 2022-10-07 | [facility] | 1.1 | (missing) | (missing) | | plasma | 03:45 | [facility] | | | | | salicylates | | [facility] | | | | | level | | | | | | + + + +-------+ + + + + | Result panel 361 | + + + + + +------+ + + | Salicylates | 2022-10-07 | [facility] | // | (missing) | (missing) | | [Mass] of | 03:45 | [facility] | | | | | Dose | | Hospital | | | | + + + +------+ + + + + | Result panel 362 | + + + + + +------+ + + | Serum or | 2022-10-07 | [facility] | <3 | (missing) | (missing) | | plasma | 03:45 | [facility] | | | | | ethanol | | Hospital | | | | | measurement | | | | | | | (moles/volum | | | | | | | e) | | | | | | + + + +------+ + + + + | Result panel 363 | + + + + + +--------+ + + | | 2022-10-07 | [facility] | 34.1 | (missing) | (missing) | | (unavailable | 03:45:07 | [facility] | | | | + + + +--------+ + + + + | Result panel 364 | + + + + + +--------+ + + | | 2022-10-07 | [facility] | 13.2 | (missing) | (missing) | | (unavailable | 03:45:07 | [facility] | | [facility] | | | | + + + +--------+ + + + + | Result panel 365 | + + + + + +-------+ + + | | 2022-10-07 | [facility] | 289 | (missing) | (missing) | | (unavailable | 03:45:07 | [facility] | | | | + + + +-------+ + + + + | Result panel 366 | + + + + + +--------+ + + | | 2022-10-07 | [facility] | 46.4 | (missing) | (missing) | | (unavailable | 03:45:07 | [facility] | | | | + + + +--------+ + + + + | Result panel 367 | + + + + + +--------+ + + | | 2022-10-07 | [facility] | 38.6 | (missing) | (missing) | | (unavailable | 03:45:07 | [facility] | | | | + + + +--------+ + + + + | Result panel 368 | + + + + + +-------+ + + | | 2022-10-07 | [facility] | 9.3 | (missing) | (missing) | | (unavailable | 03:45:07 | [facility] | | | | + + + +-------+ + + + + | Result panel 369 | + + + + + +-------+ + + | | 2022-10-07 | [facility] | 5.0 | (missing) | (missing) | | (unavailable | 03:45:07 | [facility] | | | | + + + +-------+ + + + + | Result panel 370 | + + + + + +-------+ + + | | 2022-10-07 | [facility] | 0.7 | (missing) | (missing) | | (unavailable | 03:45:07 | [facility] | | | | + + + +-------+ + + + + | Result panel 371 | + + + + + +------+---------+ + | | 2022-10-07 | [facility] | 99 | mg/dL | (missing) | | (unavailable | 03:45:07 | [facility] | | | | + + + +------+---------+ + + + | Result panel 372 | + + + + + +------+---------+ + | | 2022-10-07 | [facility] | 25 | mg/dL | (missing) | | (unavailable | 03:45:07 | [facility] | | | | + + + +------+---------+ + + + | Result panel 373 | + + + + + +--------+---------+ + | | 2022-10-07 | [facility] | 1.05 | mg/dL | (missing) | | (unavailable | 03:45:07 | [facility] | | | | + + + +--------+---------+ + + + | Result panel 374 | + + + + + +------+ + + | | 2022-10-07 | [facility] | 78 | (missing) | (missing) | | (unavailable | 03:45:07 | [facility] | | | | + + + +------+ + + + + | Result panel 375 | + + + + + +---------+ + + | | 2022-10-07 | [facility] | 23.80 | (missing) | (missing) | | (unavailable | 03:45:07 | [facility] | | | | + + + +---------+ + + + + | Result panel 376 | + + + + + +-------+ + + | | 2022-10-07 | [facility] | 139 | (missing) | (missing) | | (unavailable | 03:45:07 | [facility] | | | | + + + +-------+ + + + + | Result panel 377 | + + + + + +-------+ + + | | 2022-10-07 | [facility] | 3.4 | (missing) | (missing) | | (unavailable | 03:45:07 | [facility] | | | | + + + +-------+ + + + + | Result panel 378 | + + + + + +-------+ + + | | 2022-10-07 | [facility] | 101 | (missing) | (missing) | | (unavailable | 03:45:07 | [facility] | | | | + + + +-------+ + + + + | Result panel 379 | + + + + + +------+ + + | | 2022-10-07 | [facility] | 26 | (missing) | (missing) | | (unavailable | 03:45:07 | [facility] | | | | + + + +------+ + + + + | Result panel 380 | + + + + + +--------+ + + | | 2022-10-07 | [facility] | 15.4 | (missing) | (missing) | | (unavailable | 03:45:07 | [facility] | | | | + + + +--------+ + + + + | Result panel 381 | + + + + + +-------+---------+ + | | 2022-10-07 | [facility] | 9.0 | mg/dL | (missing) | | (unavailable | 03:45:07 | [facility] | | | | + + + +-------+---------+ + + + | Result panel 382 | + + + + + +-------+ + + | | 2022-10-07 | [facility] | 8.4 | (missing) | (missing) | | (unavailable | 03:45:07 | [facility] | | | | + + + +-------+ + + + + | Result panel 383 | + + + + + +-------+ + + | | 2022-10-07 | [facility] | 4.7 | (missing) | (missing) | | (unavailable | 03:45:07 | [facility] | | | | + + + +-------+ + + + + | Result panel 384 | + + + + + +-------+ + + | | 2022-10-07 | [facility] | 3.7 | (missing) | (missing) | | (unavailable | 03:45:07 | [facility] | | | | + + + +-------+ + + + + | Result panel 385 | + + + + + +--------+ + + | | 2022-10-07 | [facility] | 1.27 | (missing) | (missing) | | (unavailable | 03:45:07 | [facility] | | | | + + + +--------+ + + + + | Result panel 386 | + + + + + +-------+ + + | | 2022-10-07 | [facility] | 0.4 | (missing) | (missing) | | (unavailable | 03:45:07 | [facility] | | | | + + + +-------+ + + + + | Result panel 387 | + + + + + +------+ + + | | 2022-10-07 | [facility] | 21 | (missing) | (missing) | | (unavailable | 03:45:07 | [facility] | | | | + + + +------+ + + + + | Result panel 388 | + + + + + +------+ + + | | 2022-10-07 | [facility] | 28 | (missing) | (missing) | | (unavailable | 03:45:07 | [facility] | | | | + + + +------+ + + + + | Result panel 389 | + + + + + +------+ + + | | 2022-10-07 | [facility] | 87 | (missing) | (missing) | | (unavailable | 03:45:07 | [facility] | | | | + + + +------+ + + + + | Result panel 390 | + + + + + + + + + | | 2022-10-07 | [facility] | NEGATIVE | (missing) | (missing) | | (unavailable | 03:45:07 | [facility] | | | | + + + + + + + + + | Result panel 391 | + + + + + +-----+ + + | | 2022-10-07 | [facility] | 0 | (missing) | (missing) | | (unavailable | 03:45:07 | [facility] | | | | + + + +-----+ + + + + | Result panel 392 | + + + + + +------+ + + | | 2022-10-07 | [facility] | // | (missing) | (missing) | | (unavailable | 03:45:07 | [facility] | | | | + + + +------+ + + + + | Result panel 393 | + + + + + +-------+---------+ + | | 2022-10-07 | [facility] | 1.1 | mg/dL | (missing) | | (unavailable | 03:45:07 | [facility] | | | | + + + +-------+---------+ + + + | Result panel 394 | + + + + + +------+ + + | | 2022-10-07 | [facility] | // | (missing) | (missing) | | (unavailable | 03:45:07 | [facility] | | | | + + + +------+ + + + + | Result panel 395 | + + + + + +------+ + + | | 2022-10-07 | [facility] | <3 | (missing) | (missing) | | (unavailable | 03:45:07 | [facility] | | | | + + + +------+ + + + + | Result panel 396 | + + + + + +-----+ + + | | 2022-10-07 | [facility] | 0 | (missing) | (missing) | | (unavailable | 03:45:07 | [facility] | | | | + + + +-----+ + + + + | Result panel 397 | + + + + + +------+ + + | | 2022-10-07 | [facility] | // | (missing) | (missing) | | (unavailable | 03:45:07 | [facility] | | | | + + + +------+ + + + + | Result panel 398 | + + + + + +-------+---------+ + | | 2022-10-07 | [facility] | 1.1 | mg/dL | (missing) | | (unavailable | 03:45:07 | [facility] | | | | + + + +-------+---------+ + + + | Result panel 399 | + + + + + +------+ + + | | 2022-10-07 | [facility] | // | (missing) | (missing) | | (unavailable | 03:45:07 | [facility] | | | | + + + +------+ + + + + | Result panel 400 | + + + + + +------+ + + | | 2022-10-07 | [facility] | <3 | (missing) | (missing) | | (unavailable | 03:45:07 | [facility] | | | | + + + +------+ + + + + | Result panel 401 | + + + + + +-------+ + + | | 2022-10-07 | [facility] | 9.8 | (missing) | (missing) | | (unavailable | 03:45:07 | [facility] | | | | + + + +-------+ + + + + | Result panel 402 | + + + + + +--------+ + + | | 2022-10-07 | [facility] | 5.13 | (missing) | (missing) | | (unavailable | 03:45:07 | [facility] | | | | + + + +--------+ + + + + | Result panel 403 | + + + + + +--------+ + + | | 2022-10-07 | [facility] | 15.3 | (missing) | (missing) | | (unavailable | 03:45:07 | [facility] | | | | + + + +--------+ + + + + | Result panel 404 | + + + + + +--------+ + + | | 2022-10-07 | [facility] | 44.8 | (missing) | (missing) | | (unavailable | 03:45:07 | [facility] | | | | + + + +--------+ + + + + | Result panel 405 | + + + + + +--------+ + + | | 2022-10-07 | [facility] | 87.3 | (missing) | (missing) | | (unavailable | 03:45:07 | [facility] | | | | + + + +--------+ + + + + | Result panel 406 | + + + + + +--------+ + + | | 2022-10-07 | [facility] | 29.8 | (missing) | (missing) | | (unavailable | 03:45:07 | [facility] | | | | + + + +--------+ + + + + | Result panel 407 | + + + + + +------+ + + | Whole blood | 2022-10-07 | [facility] | 91 | (missing) | (missing) | | glucose | 03:46 | [facility] | | | | | measurement | | [facility] | | | | | using | | | | | | | handheld | | | | | | | analyzer | | | | | | | (mass/volume | | | | | | | ) | | | | | | + + + +------+ + + + + | Result panel 408 | + + + + + +------+ + + | | 2022-10-07 | [facility] | 91 | (missing) | (missing) | | (unavailable | 03:46:07 | [facility] | [facility] | | | | + + + +------+ + + + + | Result panel 409 | + + + + + + + + + | Urine | 2022-10-07 | [facility] | POSITIVE | (missing) | (missing) | | xfkqe-2-sjqt | 03:53 | [facility] | | | | | ahydrocannab | | Hospital | | | | | inol (THC) | | | | | | | detection | | | | | | + + + + + + + + + | Result panel 410 | + + + + + + + + + | Urine | 2022-10-07 | [facility] | NEGATIVE | (missing) | (missing) | | methamphetam | 03:53 | [facility] | | | | | ine | | Hospital | | | | | detection by | | | | | | | screening | | | | | | | method | | | | | | + + + + + + + + + | Result panel 411 | + + + + + + + + + | Urine | 2022-10-07 | [facility] | NEGATIVE | (missing) | (missing) | | methylenedio | 03:53 | [facility] | | | | | xymethamphet | | Hospital | | | | | amine | | | | | | | detection by | | | | | | | screening | | | | | | | method | | | | | | + + + + + + + + + | Result panel 412 | + + + + + + + + + | Urine | 2022-10-07 | [facility] | NEGATIVE | (missing) | (missing) | | methylenedio | 03:53 | [facility] | | | | | xymethamphet | | Hospital | | | | | amine | | | | | | | detection by | | | | | | | screening | | | | | | | method | | | | | | + + + + + + + + + | Result panel 413 | + + + + + + + + + | Urine | 2022-10-07 | [facility] | NEGATIVE | (missing) | (missing) | | buprenorphin | 03:53 | [facility] | | | | | e detection | | [facility] | | | | + + + + + + + + + | Result panel 414 | + + + + + + + + + | Urine | 2022-10-07 | [facility] | NEGATIVE | (missing) | (missing) | | amphetamines | 03:53 | [facility] | | | | | detection | | Hospital | | | | | by screening | | | | | | | method | | | | | | + + + + + + + + + | Result panel 415 | + + + + + + + + + | Urine | 2022-10-07 | [facility] | NEGATIVE | (missing) | (missing) | | barbiturates | 03:53 | [facility] | | | | | detection | | Hospital | | | | | by screening | | | | | | | method | | | | | | + + + + + + + + + | Result panel 416 | + + + + + + + + + | Urine | 2022-10-07 | [facility] | NEGATIVE | (missing) | (missing) | | benzodiazepi | 03:53 | [facility] | | | | | sonia | | Hospital | | | | | detection by | | | | | | | screening | | | | | | | method | | | | | | + + + + + + + + + | Result panel 417 | + + + + + + + + + | Urine | 2022-10-07 | [facility] | NEGATIVE | (missing) | (missing) | | cocaine | 03:53 | [facility] | | | | | detection | | Hospital | | | | + + + + + + + + + | Result panel 418 | + + + + + + + + + | Screening | 2022-10-07 | [facility] | NEGATIVE | (missing) | (missing) | | urine | 03:53 | [facility] | | | | | tricyclic | | Hospital | | | | | antidepressa | | | | | | | nts | | | | | | | detection | | | | | | + + + + + + + + + | Result panel 419 | + + + + + + + + + | Urine | 2022-10-07 | [facility] | NEGATIVE | (missing) | (missing) | | phencyclidin | 03:53 | [facility] | | | | | e detection | | Hospital | | | | | by screening | | | | | | | method | | | | | | + + + + + + + + + | Result panel 420 | + + + + + + + + + | Urine | 2022-10-07 | [facility] | NEGATIVE | (missing) | (missing) | | opiates | 03:53 | [facility] | | | | | detection by | | Hospital | | | | | screening | | | | | | | method | | | | | | + + + + + + + + + | Result panel 421 | + + + + + + + + + | Urine | 2022-10-07 | [facility] | NEGATIVE | (missing) | (missing) | | methadone | 03:53 | [facility] | | | | | detection by | | Hospital | | | | | screening | | | | | | | method | | | | | | + + + + + + + + + | Result panel 422 | + + + + + + + + + | | 2022-10-07 | [facility] | YELLOW | (missing) | (missing) | | (unavailable | 03:53:07 | [facility] ) | | [facility] | | | | + + + + + + + + + | Result panel 423 | + + + + + +---------+ + + | | 2022-10-07 | [facility] | CLEAR | (missing) | (missing) | | (unavailable | 03:53:07 | [facility] | [facility] ) | | [facility] | | | | + + + +---------+ + + + + | Result panel 424 | + + + + + + + + + | | 2022-10-07 | [facility] | NEGATIVE | (missing) | (missing) | | (unavailable | 03:53:07 | [facility] | [facility] ) | | [facility] | | | | + + + + + + + + + | Result panel 425 | + + + + + + + + + | | 2022-10-07 | [facility] | NEGATIVE | (missing) | (missing) | | (unavailable | 03:53:07 | [facility] | | [facility] | | | | + + + + + + + + + | Result panel 426 | + + + + + + + + + | | 2022-10-07 | [facility] | NEGATIVE | (missing) | (missing) | | (unavailable | 03:53:07 | [facility] | | | | + + + + + + + + + | Result panel 427 | + + + + + +---------+ + + | | 2022-10-07 | [facility] | 1.020 | (missing) | (missing) | | (unavailable | 03:53:07 | [facility] | | [facility] | | | | + + + +---------+ + + + + | Result panel 428 | + + + + + + + + + | | 2022-10-07 | [facility] | NEGATIVE | (missing) | (missing) | | (unavailable | 03:53:07 | [facility] | | [facility] | | | | + + + + + + + + + | Result panel 429 | + + + + + +-------+ + + | | 2022-10-07 | [facility] | 5.5 | (missing) | (missing) | | (unavailable | 03:53:07 | [facility] | | [facility] | | | | + + + +-------+ + + + + | Result panel 430 | + + + + + + + + + | | 2022-10-07 | [facility] | NEGATIVE | (missing) | (missing) | | (unavailable | 03:53:07 | [facility] | [facility] | | | | + + + + + + + + + | Result panel 431 | + + + + + + + + + | | 2022-10-07 | [facility] | NORMAL | (missing) | (missing) | | (unavailable | 03:53:07 | [facility] | | [facility] | | | | + + + + + + + + + | Result panel 432 | + + + + + + + + + | | 2022-10-07 | [facility] | NEGATIVE | (missing) | (missing) | | (unavailable | 03:53:07 | [facility] | | [facility] | | | | + + + + + + + + + | Result panel 433 | + + + + + + + + + | | 2022-10-07 | [facility] | NEGATIVE | (missing) | (missing) | | (unavailable | 03:53:07 | [facility] | [facility] | | | | + + + + + + + + + | Result panel 434 | + + + + + + + + + | | 2022-10-07 | [facility] | POSITIVE | (missing) | (missing) | | (unavailable | 03:53:07 | [facility] | [facility] | | | | + + + + + + + + + | Result panel 435 | + + + + + + + + + | | 2022-10-07 | [facility] | NEGATIVE | (missing) | (missing) | | (unavailable | 03:53:07 | [facility] | | [facility] | | | | + + + + + + + + + | Result panel 436 | + + + + + + + + + | | 2022-10-07 | [facility] | NEGATIVE | (missing) | (missing) | | (unavailable | 03:53:07 | [facility] | [facility] | | | | + + + + + + + + + | Result panel 437 | + + + + + + + + + | | 2022-10-07 | [facility] | NEGATIVE | (missing) | (missing) | | (unavailable | 03:53:07 | [facility] | | [facility] | | | | + + + + + + + + + | Result panel 438 | + + + + + + + + + | | 2022-10-07 | [facility] | NEGATIVE | (missing) | (missing) | | (unavailable | 03:53:07 | [facility] | | [facility] | | | | + + + + + + + + + | Result panel 439 | + + + + + + + + + | | 2022-10-07 | [facility] | NEGATIVE | (missing) | (missing) | | (unavailable | 03:53:07 | [facility] | | [facility] | | | | + + + + + + + + + | Result panel 440 | + + + + + + + + + | | 2022-10-07 | [facility] | NEGATIVE | (missing) | (missing) | | (unavailable | 03:53:07 | [facility] | [facility] | | | | + + + + + + + + + | Result panel 441 | + + + + + + + + + | | 2022-10-07 | [facility] | NEGATIVE | (missing) | (missing) | | (unavailable | 03:53:07 | [facility] | [facility] | | | | + + + + + + + + + | Result panel 442 | + + + + + + + + + | | 2022-10-07 | [facility] | NEGATIVE | (missing) | (missing) | | (unavailable | 03:53:07 | [facility] | | [facility] | | | | + + + + + + + + + | Result panel 443 | + + + + + + + + + | | 2022-10-07 | [facility] | NEGATIVE | (missing) | (missing) | | (unavailable | 03:53:07 | [facility] | | | | + + + + + + + + + | Result panel 444 | + + + + + + + + + | | 2022-10-07 | [facility] | NEGATIVE | (missing) | (missing) | | (unavailable | 03:53:07 | [facility] | [facility] | | | | + + + + + + + + + | Result panel 445 | + + + + + + + + + | | 2022-10-07 | [facility] | NEGATIVE | (missing) | (missing) | | (unavailable | 03:53:07 | [facility] | [facility] | | | | + + + + + + + + + | Result panel 446 | + + + + + + + + + | | 2022-10-07 | [facility] | NEGATIVE | (missing) | (missing) | | (unavailable | 03:53:07 | [facility] | | | | + + + + + + + + + | Result panel 447 | + + + + + + + + + | | 2022-10-07 | [facility] | POSITIVE | (missing) | (missing) | | (unavailable | 03:53:07 | [facility] | | | | + + + + + + + + + | Result panel 448 | + + + + + + + + + | | 2022-10-07 | [facility] | NEGATIVE | (missing) | (missing) | | (unavailable | 03:53:07 | [facility] | | | | + + + + + + + + + | Result panel 449 | + + + + + + + + + | | 2022-10-07 | [facility] | NEGATIVE | (missing) | (missing) | | (unavailable | 03:53:07 | [facility] | | | | + + + + + + + + + | Result panel 450 | + + + + + + + + + | | 2022-10-07 | [facility] | NEGATIVE | (missing) | (missing) | | (unavailable | 03:53:07 | [facility] | | | | + + + + + + + + + | Result panel 451 | + + + + + + + + + | | 2022-10-07 | [facility] | NEGATIVE | (missing) | (missing) | | (unavailable | 03:53:07 | [facility] | | | | + + + + + + + + + | Result panel 452 | + + + + + + + + + | | 2022-10-07 | [facility] | NEGATIVE | (missing) | (missing) | | (unavailable | 03:53:07 | [facility] | | | | + + + + + + + + + | Result panel 453 | + + + + + + + + + | | 2022-10-07 | [facility] | NEGATIVE | (missing) | (missing) | | (unavailable | 03:53:07 | [facility] | | | | + + + + + + + + + | Result panel 454 | + + + + + + + + + | | 2022-10-07 | [facility] | NEGATIVE | (missing) | (missing) | | (unavailable | 03:53:07 | [facility] | | | | + + + + + + + + + | Result panel 455 | + + + + + + + + + | | 2022-10-07 | [facility] | NEGATIVE | (missing) | (missing) | | (unavailable | 03:53:07 | [facility] | | | | + + + + + + + + + | Result panel 456 | + + + + + + + + + | | 2022-10-07 | [facility] | NEGATIVE | (missing) | (missing) | | (unavailable | 03:53:07 | [facility] | | | | + + + + + + + + + | Result panel 457 | + + + + + + + + + | | 2022-10-07 | [facility] | NEGATIVE | (missing) | (missing) | | (unavailable | 03:53:07 | [facility] | | | | + + + + + + + + + | Result panel 458 | + + + + + + + + + | | 2022-10-07 | [facility] | NEGATIVE | (missing) | (missing) | | (unavailable | 03:53:07 | [facility] | | | | + + + + + + + + + | Result panel 459 | + + + + + + + + + | | 2022-10-07 | [facility] | NEGATIVE | (missing) | (missing) | | (unavailable | 03:53:07 | [facility] | | | | + + + + + + + + + | Result panel 460 | + + + + + +-------+ + + | | 2022-10-13 | [facility] | 7.2 | (missing) | (missing) | | (unavailable | 13:30:07 | [facility] | | | | + + + +-------+ + + + + | Result panel 461 | + + + + + +--------+ + + | | 2022-10-13 | [facility] | 4.98 | (missing) | (missing) | | (unavailable | 13:30:07 | [facility] | | | | + + + +--------+ + + + + | Result panel 462 | + + + + + +--------+ + + | | 2022-10-13 | [facility] | 14.4 | (missing) | (missing) | | (unavailable | 13:30:07 | [facility] | | | | + + + +--------+ + + + + | Result panel 463 | + + + + + +--------+ + + | | 2022-10-13 | [facility] | 44.2 | (missing) | (missing) | | (unavailable | 13::07 | [facility] | | | | + + + +--------+ + + + + | Result panel 464 | + + + + + +--------+ + + | | 2022-10-13 | [facility] | 88.8 | (missing) | (missing) | | (unavailable | 13:30:07 | [facility] | | | | + + + +--------+ + + + + | Result panel 465 | + + + + + +--------+ + + | | 2022-10-13 | [facility] | 28.9 | (missing) | (missing) | | (unavailable | 13:30:07 | [facility] | | | | + + + +--------+ + + + + | Result panel 466 | + + + + + +--------+ + + | | 2022-10-13 | [facility] | 32.6 | (missing) | (missing) | | (unavailable | 13:30:07 | [facility] | | | | + + + +--------+ + + + + | Result panel 467 | + + + + + +--------+ + + | | 2022-10-13 | [facility] | 13.1 | (missing) | (missing) | | (unavailable | 13:30:07 | [facility] | | | | + + + +--------+ + + + + | Result panel 468 | + + + + + +-------+ + + | | 2022-10-13 | [facility] | 223 | (missing) | (missing) | | (unavailable | 13:30:07 | [facility] | | | | + + + +-------+ + + + + | Result panel 469 | + + + + + +--------+ + + | | 2022-10-13 | [facility] | 59.9 | (missing) | (missing) | | (unavailable | 13:30:07 | [facility] | | | | + + + +--------+ + + + + | Result panel 470 | + + + + + +--------+ + + | | 2022-10-13 | [facility] | 26.2 | (missing) | (missing) | | (unavailable | 13:30:07 | [facility] | | | | + + + +--------+ + + + + | Result panel 471 | + + + + + +-------+ + + | | 2022-10-13 | [facility] | 8.0 | (missing) | (missing) | | (unavailable | 13:30:07 | [facility] | | | | + + + +-------+ + + + + | Result panel 472 | + + + + + +-------+ + + | | 2022-10-13 | [facility] | 5.3 | (missing) | (missing) | | (unavailable | 13:30:07 | [facility] | | | | + + + +-------+ + + + + | Result panel 473 | + + + + + +-------+ + + | | 2022-10-13 | [facility] | 0.6 | (missing) | (missing) | | (unavailable | 13:30:07 | [facility] | | | | + + + +-------+ + + + + | Result panel 474 | + + + + + +-------+---------+ + | | 2022-10-13 | [facility] | 104 | mg/dL | (missing) | | (unavailable | 13:30:07 | [facility] | | | | + + + +-------+---------+ + + + | Result panel 475 | + + + + + +------+---------+ + | | 2022-10-13 | [facility] | 15 | mg/dL | (missing) | | (unavailable | 13:30:07 | [facility] | | | | + + + +------+---------+ + + + | Result panel 476 | + + + + + +--------+---------+ + | | 2022-10-13 | [facility] | 0.97 | mg/dL | (missing) | | (unavailable | 13:30:07 | [facility] | | | | + + + +--------+---------+ + + + | Result panel 477 | + + + + + +------+ + + | | 2022-10-13 | [facility] | 86 | (missing) | (missing) | | (unavailable | 13:30:07 | [facility] | | | | + + + +------+ + + + + | Result panel 478 | + + + + + +---------+ + + | | 2022-10-13 | [facility] | 15.46 | (missing) | (missing) | | (unavailable | 13:30:07 | [facility] | | | | + + + +---------+ + + + + | Result panel 479 | + + + + + +-------+ + + | | 2022-10-13 | [facility] | 140 | (missing) | (missing) | | (unavailable | 13:30:07 | [facility] | | | | + + + +-------+ + + + + | Result panel 480 | + + + + + +-------+ + + | | 2022-10-13 | [facility] | 4.1 | (missing) | (missing) | | (unavailable | 13:30:07 | [facility] | | | | + + + +-------+ + + + + | Result panel 481 | + + + + + +-------+ + + | | 2022-10-13 | [facility] | 104 | (missing) | (missing) | | (unavailable | 13:30:07 | [facility] | | | | + + + +-------+ + + + + | Result panel 482 | + + + + + +------+ + + | | 2022-10-13 | [facility] | 26 | (missing) | (missing) | | (unavailable | 13:30:07 | [facility] | | | | + + + +------+ + + + + | Result panel 483 | + + + + + +--------+ + + | | 2022-10-13 | [facility] | 14.1 | (missing) | (missing) | | (unavailable | 13:30:07 | [facility] | | | | + + + +--------+ + + + + | Result panel 484 | + + + + + +-------+---------+ + | | 2022-10-13 | [facility] | 9.3 | mg/dL | (missing) | | (unavailable | : | [facility] | | | | + + + +-------+---------+ + + + | Result panel 485 | + + + + + +-------+---------+ + | | 2022-10-13 | [facility] | 2.1 | mg/dL | (missing) | | (unavailable | 13:30:07 | [facility] | | | | + + + +-------+---------+ + + + | Result panel 486 | + + + + + +-------+ + + | | 2022-10-13 | [facility] | 8.1 | (missing) | (missing) | | (unavailable | 13:30:07 | [facility] | | | | + + + +-------+ + + + + | Result panel 487 | + + + + + +-------+ + + | | 2022-10-13 | [facility] | 4.4 | (missing) | (missing) | | (unavailable | 13:30:07 | [facility] | | | | + + + +-------+ + + + + | Result panel 488 | + + + + + +-------+ + + | | 2022-10-13 | [facility] | 3.7 | (missing) | (missing) | | (unavailable | 13:30:07 | [facility] | | | | + + + +-------+ + + + + | Result panel 489 | + + + + + +--------+ + + | | 2022-10-13 | [facility] | 1.19 | (missing) | (missing) | | (unavailable | 13:30:07 | [facility] | | | | + + + +--------+ + + + + | Result panel 490 | + + + + + +-------+ + + | | 2022-10-13 | [facility] | 0.5 | (missing) | (missing) | | (unavailable | 13:30:07 | [facility] | | | | + + + +-------+ + + + + | Result panel 491 | + + + + + +------+ + + | | 2022-10-13 | [facility] | 15 | (missing) | (missing) | | (unavailable | 13:30:07 | [facility] | | | | + + + +------+ + + + + | Result panel 492 | + + + + + +------+ + + | | 2022-10-13 | [facility] | 22 | (missing) | (missing) | | (unavailable | 13:30:07 | [facility] | | | | + + + +------+ + + + + | Result panel 493 | + + + + + +------+ + + | | 2022-10-13 | [facility] | 87 | (missing) | (missing) | | (unavailable | 13:30:07 | [facility] | | | | + + + +------+ + + + + | Result panel 494 | + + + + + + + + + | | 2022-10-13 | [facility] | NEGATIVE | (missing) | (missing) | | (unavailable | 13:30:07 | [facility] | | | | + + + + + + + + + | Result panel 495 | + + + + + + + + + | | 2022-10-13 | [facility] | YELLOW | (missing) | (missing) | | (unavailable | 14:37:07 | [facility] | | | | + + + + + + + + + | Result panel 496 | + + + + + + + + + | | 2022-10-13 | [facility] | SL CLOUDY | (missing) | (missing) | | (unavailable | 14:37:07 | [facility] | | | | + + + + + + + + + | Result panel 497 | + + + + + + + + + | | 2022-10-13 | [facility] | NEGATIVE | (missing) | (missing) | | (unavailable | 14:37:07 | [facility] | | | | + + + + + + + + + | Result panel 498 | + + + + + + + + + | | 2022-10-13 | [facility] | NEGATIVE | (missing) | (missing) | | (unavailable | 14:37:07 | [facility] | | | | + + + + + + + + + | Result panel 499 | + + + + + + + + + | | 2022-10-13 | [facility] | NEGATIVE | (missing) | (missing) | | (unavailable | 14:37:07 | [facility] | | | | + + + + + + + + + | Result panel 500 | + + + + + + + + + | | 2022-10-13 | [facility] | >=1.030 | (missing) | (missing) | | (unavailable | 14:37:07 | [facility] | | | | + + + + + + + + + | Result panel 501 | + + + + + +---------+ + + | | 2022-10-13 | [facility] | LARGE | (missing) | (missing) | | (unavailable | 14:37:07 | [facility] | | | | + + + +---------+ + + + + | Result panel 502 | + + + + + +-------+ + + | | 2022-10-13 | [facility] | 5.5 | (missing) | (missing) | | (unavailable | 14:37:07 | [facility] | | | | + + + +-------+ + + + + | Result panel 503 | + + + + + + + + + | | 2022-10-13 | [facility] | NEGATIVE | (missing) | (missing) | | (unavailable | 14:37:07 | [facility] | | | | + + + + + + + + + | Result panel 504 | + + + + + + + + + | | 2022-10-13 | [facility] | NORMAL | (missing) | (missing) | | (unavailable | 14:37:07 | [facility] | | | | + + + + + + + + + | Result panel 505 | + + + + + + + + + | | 2022-10-13 | [facility] | NEGATIVE | (missing) | (missing) | | (unavailable | 14:37:07 | [facility] | | | | + + + + + + + + + | Result panel 506 | + + + + + + + + + | | 2022-10-13 | [facility] | NEGATIVE | (missing) | (missing) | | (unavailable | 14:37:07 | [facility] | | | | + + + + + + + + + | Result panel 507 | + + + + + +-------+ + + | | 2022-10-13 | [facility] | 0-1 | (missing) | (missing) | | (unavailable | 14:37:07 | [facility] | | | | + + + +-------+ + + + + | Result panel 508 | + + + + + +-------+ + + | | 2022-10-13 | [facility] | 2-3 | (missing) | (missing) | | (unavailable | 14:37:07 | [facility] | | | | + + + +-------+ + + + + | Result panel 509 | + + + + + + + + + | | 2022-10-13 | [facility] | SQUAMOUS 4+ | (missing) | (missing) | | (unavailable | 14:37:07 | [facility] | | | | + + + + + + + + + | Result panel 510 | + + + + + + + + + | | 2022-10-13 | [facility] | NONE SEEN | (missing) | (missing) | | (unavailable | 14:37:07 | [facility] | | | | + + + + + + + + + | Result panel 511 | + + + + + +--------+ + + | | 2022-10-13 | [facility] | RARE | (missing) | (missing) | | (unavailable | 14:37:07 | [facility] | | | | + + + +--------+ + + + + | Result panel 512 | + + + + + + + + + | | 2022-10-13 | [facility] | NONE SEEN | (missing) | (missing) | | (unavailable | 14:37:07 | [facility] | | | | + + + + + + + + + | Result panel 513 | + + + + + +------+ + + | | 2022-10-13 | [facility] | No | (missing) | (missing) | | (unavailable | 14:37:07 | [facility] | | | | + + + +------+ + + + + | Result panel 514 | + + + + + + + + + | | 2022-10-13 | [facility] | CLEAN CATCH | (missing) | (missing) | | (unavailable | 14:37:07 | [facility] | | | | + + + + + + + + + | Automated urine sediment erythrocyte count by microscopy (number/high power field) | + + + + + +-------+ + + | Automated | 2022-10-13 | [facility] | 0-1 | (missing) | (missing) | | urine | 14:37 | [facility] | | | | | sediment | | [facility] | | | | | erythrocyte | | | | | | | count by | | | | | | | microscopy | | | | | | | (number/high | | | | | | | power | | | | | | | field) | | | | | | + + + +-------+ + + + + | Serum or plasma alanine aminotransferase measurement (enzymatic activity/volume) | + + + + + +------+ + + | Serum or | 2022-10-13 | [facility] | 22 | (missing) | (missing) | | plasma | 13:30 | [facility] | | | | | alanine | | Hospital | | | | | aminotransfe | | | | | | | rase | | | | | | | measurement | | | | | | | (enzymatic | | | | | | | activity/vol | | | | | | | ume) | | | | | | + + + +------+ + + + + | Serum or plasma albumin measurement (mass/volume) | + + + + + +-------+ + + | Serum or | 2022-10-13 | [facility] | 4.4 | (missing) | (missing) | | plasma | 13:30 | [facility] | | | | | albumin | | [facility] | | | | | measurement | | | | | | | (mass/volume | | | | | | | ) | | | | | | + + + +-------+ + + + + | Serum or plasma albumin/globulin mass ratio | + + + + + +--------+ + + | Serum or | 2022-10-13 | [facility] | 1.19 | (missing) | (missing) | | plasma | 13:30 | [facility] | | | | | albumin/glob | | [facility] | | | | | ulin mass | | | | | | | ratio | | | | | | + + + +--------+ + + + + | Serum or plasma calcium measurement (mass/volume) | + + + + + +-------+ + + | Serum or | 2022-10-13 | [facility] | 9.3 | (missing) | (missing) | | plasma | 13:30 | [facility] | | | | | calcium | | [facility] | | | | | measurement | | | | | | | (mass/volume | | | | | | | ) | | | | | | + + + +-------+ + + + + | Serum or plasma anion gap 4 | + + + + + +--------+ + + | Serum or | 2022-10-13 | [facility] | 14.1 | (missing) | (missing) | | plasma anion | 13:30 | [facility] | | | | | gap 4 | | [facility] | | | | + + + +--------+ + + + + | Serum or plasma magnesium measurement (mass/volume) | + + + + + +-------+ + + | Serum or | 2022-10-13 | [facility] | 2.1 | (missing) | (missing) | | plasma | 13:30 | [facility] | | | | | magnesium | | [facility] | | | | | measurement | | | | | | | (mass/volume | | | | | | | ) | | | | | | + + + +-------+ + + + + | Urinalysis specimen collection method | + + + + + + + + + | Urinalysis | 2022-10-13 | [facility] | CLEAN CATCH | (missing) | (missing) | | specimen | 14:37 | [facility] | | | | | collection | | [facility] | | | | | method | | | | | | + + + + + + + + + | Serum or plasma aspartate aminotransferase measurement (enzymatic activity/volume) | + + + + + +------+ + + | Serum or | 2022-10-13 | [facility] | 15 | (missing) | (missing) | | plasma | 13:30 | [facility] | | | | | aspartate | | Hospital | | | | | aminotransfe | | | | | | | rase | | | | | | | measurement | | | | | | | (enzymatic | | | | | | | activity/vol | | | | | | | ume) | | | | | | + + + +------+ + + + + | Character of Urine | + + + + + + + + + | Character | 2022-10-13 | [facility] | SL CLOUDY | (missing) | (missing) | | of Urine | 14:37 | [facility] | [facility] | | | | [facility] | | | | + + + + + + + + + | Serum or plasma total bilirubin measurement (mass/volume) | + + + + + +-------+ + + | Serum or | 2022-10-13 | [facility] | 0.5 | (missing) | (missing) | | plasma total | 13:30 | [facility] | | | | | bilirubin | | [facility] | | | | | measurement | | | | | | | (mass/volume | | | | | | | ) | | | | | | + + + +-------+ + + + + | Serum or plasma carbon dioxide, total measurement (moles/volume) | + + + + + +------+ + + | Serum or | 2022-10-13 | [facility] | 26 | (missing) | (missing) | | plasma | 13:30 | [facility] | | | | | carbon | | Hospital | | | | | dioxide, | | | | | | | total | | | | | | | measurement | | | | | | | (moles/volum | | | | | | | e) | | | | | | + + + +------+ + + + + | Urobilinogen [Mass/volume] in Urine by Test strip | + + + + + + + + + | | 2022-10-13 | [facility] | NORMAL | (missing) | (missing) | | Urobilinogen | 14:37 | [facility] | | | | | | | [facility] | | | | | [Mass/volume | | | | | | | ] in Urine | | | | | | | by Test | | | | | | | strip | | | | | | + + + + + + + + + | Serum or plasma chloride measurement (moles/volume) | + + + + + +-------+ + + | Serum or | 2022-10-13 | [facility] | 104 | (missing) | (missing) | | plasma | 13:30 | [facility] | | | | | chloride | | [facility] | | | | | measurement | | | | | | | (moles/volum | | | | | | | e) | | | | | | + + + +-------+ + + + + | Automated erythrocyte distribution width | + + + + + +--------+ + + | Automated | 2022-10-13 | [facility] | 13.1 | (missing) | (missing) | | erythrocyte | 13:30 | [facility] | | | | | distribution | | [facility] | | | | | width | | | | | | + + + +--------+ + + + + | Serum or plasma choriogonadotropin ( test) detection | + + + + + + + + + | Serum or | 2022-10-13 | [facility] | NEGATIVE | (missing) | (missing) | | plasma | 13:30 | [facility] | | | | | choriogonado | | Hospital | | | | | tropin | | | | | | | ( | | | | | | | test) | | | | | | | detection | | | | | | + + + + + + + + + | Serum or plasma creatinine measurement (mass/volume) | + + + + + +--------+ + + | Serum or | 2022-10-13 | [facility] | 0.97 | (missing) | (missing) | | plasma | 13:30 | [facility] | | | | | creatinine | | [facility] | | | | | measurement | | | | | | | (mass/volume | | | | | | | ) | | | | | | + + + +--------+ + + + + | Serum globulin measurement (mass/volume) | + + + + + +-------+ + + | Serum | 2022-10-13 | [facility] | 3.7 | (missing) | (missing) | | globulin | 13:30 | [facility] | | | | | measurement | | [facility] | | | | | (mass/volume | | | | | | | ) | | | | | | + + + +-------+ + + + + | Serum or plasma glucose measurement (mass/volume) | + + + + + +-------+ + + | Serum or | 2022-10-13 | [facility] | 104 | (missing) | (missing) | | plasma | 13:30 | [facility] | | | | | glucose | | [facility] | | | | | measurement | | | | | | | (mass/volume | | | | | | | ) | | | | | | + + + +-------+ + + + + | Urine ketones detection by test strip | + + + + + + + + + | Urine | 2022-10-13 | [facility] | NEGATIVE | (missing) | (missing) | | ketones | 14:37 | [facility] | | | | | detection by | | Hospital | | | | | test strip | | | | | | + + + + + + + + + | Glucose [Presence] in Urine by Test strip | + + + + + + + + + | Glucose | 2022-10-13 | [facility] | NEGATIVE | (missing) | (missing) | | [Presence] | 14:37 | [facility] | | | | | in Urine by | | Hospital | | | | | Test strip | | | | | | + + + + + + + + + | Serum or plasma potassium measurement (moles/volume) | + + + + + +-------+ + + | Serum or | 2022-10-13 | [facility] | 4.1 | (missing) | (missing) | | plasma | 13:30 | [facility] | | | | | potassium | | [facility] | | | | | measurement | | | | | | | (moles/volum | | | | | | | e) | | | | | | + + + +-------+ + + + + | Serum or plasma protein measurement (mass/volume) | + + + + + +-------+ + + | Serum or | 2022-10-13 | [facility] | 8.1 | (missing) | (missing) | | plasma | 13:30 | [facility] | | | | | protein | | [facility] | | | | | measurement | | | | | | | (mass/volume | | | | | | | ) | | | | | | + + + +-------+ + + + + | Serum or plasma sodium measurement (moles/volume) | + + + + + +-------+ + + | Serum or | 2022-10-13 | [facility] | 140 | (missing) | (missing) | | plasma | 13:30 | [facility] | | | | | sodium | | [facility] | | | | | measurement | | | | | | | (moles/volum | | | | | | | e) | | | | | | + + + +-------+ + + + + | Serum or plasma urea nitrogen measurement (mass/volume) | + + + + + +------+ + + | Serum or | 2022-10-13 | [facility] | 15 | (missing) | (missing) | | plasma urea | 13:30 | [facility] | | | | | nitrogen | | [facility] | | | | | measurement | | | | | | | (mass/volume | | | | | | | ) | | | | | | + + + +------+ + + + + | Serum or plasma urea nitrogen/creatinine mass ratio | + + + + + +---------+ + + | Serum or | 2022-10-13 | [facility] | 15.46 | (missing) | (missing) | | plasma urea | 13:30 | [facility] | | | | | nitrogen/cre | | [facility] | | | | | atinine mass | | | | | | | ratio | | | | | | + + + +---------+ + + + + | Color of Urine by Auto | + + + + + + + + + | Color of | 2022-10-13 | [facility] | YELLOW | (missing) | (missing) | | Urine by | 14:37 | [facility] | | | | | Auto | | [facility] | | | | + + + + + + + + + | Automated urine sediment bacteria count by microscopy (number/high power field) | + + + + + +--------+ + + | Automated | 2022-10-13 | [facility] | RARE | (missing) | (missing) | | urine | 14:37 | [facility] | | | | | sediment | | [facility] | | | | | bacteria | | | | | | | count by | | | | | | | microscopy | | | | | | | (number/high | | | | | | | power | | | | | | | field) | | | | | | + + + +--------+ + + + + | Urine total bilirubin detection by test strip | + + + + + + + + + | Urine total | 2022-10-13 | [facility] | NEGATIVE | (missing) | (missing) | | bilirubin | 14:37 | [facility] | | | | | detection by | | Hospital | | | | | test strip | | | | | | + + + + + + + + + | Crystal typing in urine sediment by light microscopy | + + + + + + + + + | Crystal | 2022-10-13 | [facility] | NONE SEEN | (missing) | (missing) | | typing in | 14:37 | [facility] | | | | | urine | | [facility] | | | | | sediment by | | | | | | | light | | | | | | | microscopy | | | | | | + + + + + + + + + | Automated urine sediment epithelial cell count by microscopy (number/high power field) | + + + + + + + + + | Automated | 2022-10-13 | [facility] | SQUAMOUS 4+ | (missing) | (missing) | | urine | 14:37 | [facility] | | | | | sediment | | [facility] | | | | | epithelial | | | | | | | cell count | | | | | | | by | | | | | | | microscopy | | | | | | | (number/high | | | | | | | power | | | | | | | field) | | | | | | + + + + + + + + + | Urine hemoglobin detection by test strip | + + + + + +---------+ + + | Urine | 2022-10-13 | [facility] | LARGE | (missing) | (missing) | | hemoglobin | 14:37 | [facility] | | | | | detection by | | Hospital | | | | | test strip | | | | | | + + + +---------+ + + + + | Urine leukocyte esterase detection by dipstick | + + + + + + + + + | Urine | 2022-10-13 | [facility] | NEGATIVE | (missing) | (missing) | | leukocyte | 14:37 | [facility] | | | | | esterase | | [facility] | | | | | detection by | | | | | | | dipstick | | | | | | + + + + + + + + + | Urine nitrite detection by test strip | + + + + + + + + + | Urine | 2022-10-13 | [facility] | NEGATIVE | (missing) | (missing) | | nitrite | 14:37 | [facility] | | | | | detection by | | Hospital | | | | | test strip | | | | | | + + + + + + + + + | Urine pH measurement by test strip | + + + + + +-------+ + + | Urine pH | 2022-10-13 | [facility] | 5.5 | (missing) | (missing) | | measurement | 14:37 | [facility] | | | | | by test | | [facility] | | | | | strip | | | | | | + + + +-------+ + + + + | Protein urine test strip | + + + + + + + + + | Protein | 2022-10-13 | [facility] | NEGATIVE | (missing) | (missing) | | urine test | 14:37 | [facility] | | | | | strip | | [facility] | | | | + + + + + + + + + | Specific gravity ur dipstick | + + + + + + + + + | Specific | 2022-10-13 | [facility] | >=1.030 | (missing) | (missing) | | gravity ur | 14:37 | [facility] | | | | | dipstick | | [facility] | | | | + + + + + + + + + | Automated urine sediment leukocyte count by microscopy (number/high power field) | + + + + + +-------+ + + | Automated | 2022-10-13 | [facility] | 2-3 | (missing) | (missing) | | urine | 14:37 | [facility] | | | | | sediment | | [facility] | | | | | leukocyte | | | | | | | count by | | | | | | | microscopy | | | | | | | (number/high | | | | | | | power | | | | | | | field) | | | | | | + + + +-------+ + + + + | Automated blood monocyte count as percentage of total leukocytes | + + + + + +-------+ + + | Automated | 2022-10-13 | [facility] | 8.0 | (missing) | (missing) | | blood | 13:30 | [facility] | | | | | monocyte | | [facility] | | | | | count as | | | | | | | percentage | | | | | | | of total | | | | | | | leukocytes | | | | | | + + + +-------+ + + + + | Reflexive urine bacterial culture | + + + + + +------+ + + | Reflexive | 2022-10-13 | [facility] | No | (missing) | (missing) | | urine | 14:37 | [facility] | | | | | bacterial | | [facility] | | | | | culture | | | | | | + + + +------+ + + + + | Blood leukocytes automated count (number/volume) | + + + + + +-------+ + + | Blood | 2022-10-13 | [facility] | 7.2 | (missing) | (missing) | | leukocytes | 13:30 | [facility] | | | | | automated | | [facility] | | | | | count | | | | | | | (number/volu | | | | | | | me) | | | | | | + + + +-------+ + + + + | Serum or plasma alkaline phosphatase measurement (enzymatic activity/volume) | + + + + + +------+ + + | Serum or | 2022-10-13 | [facility] | 87 | (missing) | (missing) | | plasma | 13:30 | [facility] | | | | | alkaline | | [facility] | | | | | phosphatase | | | | | | | measurement | | | | | | | (enzymatic | | | | | | | activity/vol | | | | | | | ume) | | | | | | + + + +------+ + + + + | Automated blood basophil count as percentage of total leukocytes | + + + + + +-------+ + + | Automated | 2022-10-13 | [facility] | 0.6 | (missing) | (missing) | | blood | 13:30 | [facility] | | | | | basophil | | [facility] | | | | | count as | | | | | | | percentage | | | | | | | of total | | | | | | | leukocytes | | | | | | + + + +-------+ + + + + | Automated blood eosinophil count as percentage of total leukocytes | + + + + + +-------+ + + | Automated | 2022-10-13 | [facility] | 5.3 | (missing) | (missing) | | blood | 13:30 | [facility] | | | | | eosinophil | | [facility] | | | | | count as | | | | | | | percentage | | | | | | | of total | | | | | | | leukocytes | | | | | | + + + +-------+ + + + + | Blood hemoglobin measurement (mass/volume) | + + + + + +--------+ + + | Blood | 2022-10-13 | [facility] | 14.4 | (missing) | (missing) | | hemoglobin | 13:30 | [facility] | | | | | measurement | | [facility] | | | | | (mass/volume | | | | | | | ) | | | | | | + + + +--------+ + + + + | Automated blood hematocrit | + + + + + +--------+ + + | Automated | 2022-10-13 | [facility] | 44.2 | (missing) | (missing) | | blood | 13:30 | [facility] | | | | | hematocrit | | [facility] | | | | + + + +--------+ + + + + | Automated blood lymphocyte count as percentage ot total leukocytes | + + + + + +--------+ + + | Automated | 2022-10-13 | [facility] | 26.2 | (missing) | (missing) | | blood | 13:30 | [facility] | | | | | lymphocyte | | Hospital | | | | | count as | | | | | | | percentage | | | | | | | ot total | | | | | | | leukocytes | | | | | | + + + +--------+ + + + + | Automated blood neutrophil count as percentage of total leukocytes | + + + + + +--------+ + + | Automated | 2022-10-13 | [facility] | 59.9 | (missing) | (missing) | | blood | 13:30 | [facility] | | | | | neutrophil | | [facility] | | | | | count as | | | | | | | percentage | | | | | | | of total | | | | | | | leukocytes | | | | | | + + + +--------+ + + + + | Automated blood platelet count (count/volume) | + + + + + +-------+ + + | Automated | 2022-10-13 | [facility] | 223 | (missing) | (missing) | | blood | 13:30 | [facility] | | | | | platelet | | [facility] | | | | | count | | | | | | | (count/volum | | | | | | | e) | | | | | | + + + +-------+ + + + + | Automated erythrocyte mean corpuscular hemoglobin (mass per erythrocyte) | + + + + + +--------+ + + | Automated | 2022-10-13 | [facility] | 28.9 | (missing) | (missing) | | erythrocyte | 13:30 | [facility] | | | | | mean | | [facility] | | | | | corpuscular | | | | | | | hemoglobin | | | | | | | (mass per | | | | | | | erythrocyte) | | | | | | | | | | | | | + + + +--------+ + + + + | Automated erythrocyte mean corpuscular hemoglobin concentration measurement | | (mass/volume) | + + + + + +--------+ + + | Automated | 2022-10-13 | [facility] | 32.6 | (missing) | (missing) | | erythrocyte | 13:30 | [facility] | | | | | mean | | Hospital | | | | | corpuscular | | | | | | | hemoglobin | | | | | | | concentratio | | | | | | | n | | | | | | | measurement | | | | | | | (mass/volume | | | | | | | ) | | | | | | + + + +--------+ + + + + | Automated erythrocyte mean corpuscular volume | + + + + + +--------+ + + | Automated | 2022-10-13 | [facility] | 88.8 | (missing) | (missing) | | erythrocyte | 13:30 | [facility] | | | | | mean | | [facility] | | | | | corpuscular | | | | | | | volume | | | | | | + + + +--------+ + + + + | Blood erythrocytes automated count (number/volume) | + + + + + +--------+ + + | Blood | 2022-10-13 | [facility] | 4.98 | (missing) | (missing) | | erythrocytes | 13:30 | [facility] | | | | | automated | | [facility] | | | | | count | | | | | | | (number/volu | | | | | | | me) | | | | | | + + + +--------+ + + + + | Automated casts count in urine sediment by microscopy low power field (number/area) | + + + + + + + + + | Automated | 2022-10-13 | [facility] | NONE SEEN | (missing) | (missing) | | casts count | 14:37 | [facility] | | | | | in urine | | Hospital | | | | | sediment by | | | | | | | microscopy | | | | | | | low power | | | | | | | field | | | | | | | (number/area | | | | | | | ) | | | | | | + + + + + + + + + | Glomerular filtration rate/1.73 sq M.predicted [Volume Rate/Area] inSerum, Plasma or | | Blood by Creatinine-based formula (CKD-EPI 2020) | + + + + + +------+ + + | Glomerular | 2022-10-13 | [facility] | 86 | (missing) | (missing) | | filtration | 13:30 | [facility] | | | | | rate/1.73 sq | | Hospital | | | | | M.predicted | | | | | | | [Volume | | | | | | | Rate/Area] | | | | | | | inSerum, | | | | | | | Plasma or | | | | | | | Blood by | | | | | | | Creatinine-b | | | | | | | ased formula | | | | | | | (CKD-EPI | | | | | | | 2020) | | | | | | + + + +------+ + + Social History + + + + | date | description | facility | + + + + | 2022-10-13 00:00 | Never smoker [facility] | + + + + Vital Signs + + + +---------+ | date | measurement | value | units | + + + +---------+ | 2021-04-25 00:00 | BMI | 21.8 | kg/m2 | + + + +---------+ | 2021-04-25 00:00 | BMI | 50 | th | + + + +---------+ | 2021-04-25 00:00 | BP_diastolic | 74 | mmHg | + + + +---------+ | 2021-04-25 00:00 | BP_systolic | 126 | mmHg | + + + +---------+ | 2021-04-25 00:00 | heart_rate | 60 | /min | + + + +---------+ | 2021-04-25 00:00 | height_metric | 167.64 | cm | + + + +---------+ | 2021-04-25 00:00 | height_standard | 66 | in | + + + +---------+ | 2021-04-25 00:00 | o2_saturation | 100 | % | + + + +---------+ | 2021-04-25 00:00 | respiration_rate | 16 | /min | + + + +---------+ | 2021-04-25 00:00 | temperature_metric | 36.5 | C | | | | | | + + + +---------+ | 2021-04-25 00:00 | | 97.7 | F | | | temperature_standar | | | | | d | | | + + + +---------+ | 2021-04-25 00:00 | weight_metric | 61.23 | kg | + + + +---------+ | 2021-04-25 00:00 | weight_standard | 134.99 | lb | + + + +---------+ | 2021-04-25 00:00 | weight_standard | 135 | lb | + + + +---------+ | 2021-07-06 00:00 | BMI | 20.0 | kg/m2 | + + + +---------+ | 2021-07-06 00:00 | BMI | 50 | th | + + + +---------+ | 2021-07-06 00:00 | BP_diastolic | 85 | mmHg | + + + +---------+ | 2021-07-06 00:00 | BP_systolic | 111 | mmHg | + + + +---------+ | 2021-07-06 00:00 | heart_rate | 70 | /min | + + + +---------+ | 2021-07-06 00:00 | height_metric | 167.64 | cm | + + + +---------+ | 2021-07-06 00:00 | height_standard | 66 | in | + + + +---------+ | 2021-07-06 00:00 | o2_saturation | 98 | % | + + + +---------+ | 2021-07-06 00:00 | respiration_rate | 16 | /min | + + + +---------+ | 2021-07-06 00:00 | temperature_metric | 36.72 | C | | | | | | + + + +---------+ | 2021-07-06 00:00 | | 98.1 | F | | | temperature_standar | | | | | d | | | + + + +---------+ | 2021-07-06 00:00 | weight_metric | 56.3 | kg | + + + +---------+ | 2021-07-06 00:00 | weight_standard | 124.12 | lb | + + + +---------+ | 2021-08-29 00:00 | BMI | 18.4 | kg/m2 | + + + +---------+ | 2021-08-29 00:00 | BMI | 50 | th | + + + +---------+ | 2021-08-29 00:00 | BP_diastolic | 65 | mmHg | + + + +---------+ | 2021-08-29 00:00 | BP_systolic | 104 | mmHg | + + + +---------+ | 2021-08-29 00:00 | heart_rate | 67 | /min | + + + +---------+ | 2021-08-29 00:00 | height_metric | 167.64 | cm | + + + +---------+ | 2021-08-29 00:00 | height_standard | 66 | in | + + + +---------+ | 2021-08-29 00:00 | o2_saturation | 100 | % | + + + +---------+ | 2021-08-29 00:00 | respiration_rate | 16 | /min | + + + +---------+ | 2021-08-29 00:00 | temperature_metric | 37.06 | C | | | | | | + + + +---------+ | 2021-08-29 00:00 | | 98.7 | F | | | temperature_standar | | | | | d | | | + + + +---------+ | 2021-08-29 00:00 | weight_metric | 51.74 | kg | + + + +---------+ | 2021-08-29 00:00 | weight_standard | 114.06 | lb | + + + +---------+ | 2021-08-29 00:00 | weight_standard | 114.07 | lb | + + + +---------+ | 2021-09-10 00:00 | BMI | 20.5 | kg/m2 | + + + +---------+ | 2021-09-10 00:00 | BMI | 50 | th | + + + +---------+ | 2021-09-10 00:00 | BP_diastolic | 72 | mmHg | + + + +---------+ | 2021-09-10 00:00 | BP_systolic | 122 | mmHg | + + + +---------+ | 2021-09-10 00:00 | heart_rate | 86 | /min | + + + +---------+ | 2021-09-10 00:00 | height_metric | 167.64 | cm | + + + +---------+ | 2021-09-10 00:00 | height_standard | 66 | in | + + + +---------+ | 2021-09-10 00:00 | o2_saturation | 99 | % | + + + +---------+ | 2021-09-10 00:00 | respiration_rate | 16 | /min | + + + +---------+ | 2021-09-10 00:00 | temperature_metric | 36.72 | C | | | | | | + + + +---------+ | 2021-09-10 00:00 | | 98.1 | F | | | temperature_standar | | | | | d | | | + + + +---------+ | 2021-09-10 00:00 | weight_metric | 57.61 | kg | + + + +---------+ | 2021-09-10 00:00 | weight_standard | 127 | lb | + + + +---------+ | 2021-09-10 00:00 | weight_standard | 127.01 | lb | + + + +---------+ | 2021-09-11 00:00 | BMI | 21.1 | kg/m2 | + + + +---------+ | 2021-09-11 00:00 | BMI | 50 | th | + + + +---------+ | 2021-09-11 00:00 | height_metric | 165.1 | cm | + + + +---------+ | 2021-09-11 00:00 | height_standard | 65 | in | + + + +---------+ | 2021-09-11 00:00 | weight_metric | 57.61 | kg | + + + +---------+ | 2021-09-11 00:00 | weight_standard | 127 | lb | + + + +---------+ | 2021-10-16 00:00 | BMI | 21.6 | kg/m2 | + + + +---------+ | 2021-10-16 00:00 | BMI | 50 | th | + + + +---------+ | 2021-10-16 00:00 | BP_diastolic | 59 | mmHg | + + + +---------+ | 2021-10-16 00:00 | BP_systolic | 117 | mmHg | + + + +---------+ | 2021-10-16 00:00 | heart_rate | 63 | /min | + + + +---------+ | 2021-10-16 00:00 | height_metric | 165.1 | cm | + + + +---------+ | 2021-10-16 00:00 | height_standard | 65 | in | + + + +---------+ | 2021-10-16 00:00 | o2_saturation | 100 | % | + + + +---------+ | 2021-10-16 00:00 | respiration_rate | 14 | /min | + + + +---------+ | 2021-10-16 00:00 | temperature_metric | 37.22 | C | | | | | | + + + +---------+ | 2021-10-16 00:00 | | 99 | F | | | temperature_standar | | | | | d | | | + + + +---------+ | 2021-10-16 00:00 | weight_metric | 58.97 | kg | + + + +---------+ | 2021-10-16 00:00 | weight_standard | 130 | lb | + + + +---------+ | 2021-10-16 00:00 | weight_standard | 130.01 | lb | + + + +---------+ | 2021-10-24 00:00 | BMI | 21.6 | kg/m2 | + + + +---------+ | 2021-10-24 00:00 | BMI | 50 | th | + + + +---------+ | 2021-10-24 00:00 | BP_diastolic | 60 | mmHg | + + + +---------+ | 2021-10-24 00:00 | BP_systolic | 113 | mmHg | + + + +---------+ | 2021-10-24 00:00 | heart_rate | 62 | /min | + + + +---------+ | 2021-10-24 00:00 | height_metric | 165.1 | cm | + + + +---------+ | 2021-10-24 00:00 | height_standard | 65 | in | + + + +---------+ | 2021-10-24 00:00 | o2_saturation | 100 | % | + + + +---------+ | 2021-10-24 00:00 | respiration_rate | 16 | /min | + + + +---------+ | 2021-10-24 00:00 | temperature_metric | 37.06 | C | | | | | | + + + +---------+ | 2021-10-24 00:00 | | 98.7 | F | | | temperature_standar | | | | | d | | | + + + +---------+ | 2021-10-24 00:00 | weight_metric | 58.99 | kg | + + + +---------+ | 2021-10-24 00:00 | weight_metric | 59 | kg | + + + +---------+ | 2021-10-24 00:00 | weight_standard | 130.06 | lb | + + + +---------+ | 2021-10-24 00:00 | weight_standard | 130.07 | lb | + + + +---------+ | 2021-11-01 00:00 | BMI | 21.5 | kg/m2 | + + + +---------+ | 2021-11-01 00:00 | BMI | 50 | th | + + + +---------+ | 2021-11-01 00:00 | BP_diastolic | 61 | mmHg | + + + +---------+ | 2021-11-01 00:00 | BP_systolic | 97 | mmHg | + + + +---------+ | 2021-11-01 00:00 | heart_rate | 61 | /min | + + + +---------+ | 2021-11-01 00:00 | height_metric | 167.64 | cm | + + + +---------+ | 2021-11-01 00:00 | height_standard | 66 | in | + + + +---------+ | 2021-11-01 00:00 | o2_saturation | 98 | % | + + + +---------+ | 2021-11-01 00:00 | respiration_rate | 16 | /min | + + + +---------+ | 2021-11-01 00:00 | temperature_metric | 36.89 | C | | | | | | + + + +---------+ | 2021-11-01 00:00 | | 98.4 | F | | | temperature_standar | | | | | d | | | + + + +---------+ | 2021-11-01 00:00 | weight_metric | 60.5 | kg | + + + +---------+ | 2021-11-01 00:00 | weight_standard | 133.38 | lb | + + + +---------+ | 2021-12-15 00:00 | BMI | 21.1 | kg/m2 | + + + +---------+ | 2021-12-15 00:00 | BP_diastolic | 62 | mmHg | + + + +---------+ | 2021-12-15 00:00 | BP_systolic | 108 | mmHg | + + + +---------+ | 2021-12-15 00:00 | heart_rate | 98 | /min | + + + +---------+ | 2021-12-15 00:00 | height_metric | 167.64 | cm | + + + +---------+ | 2021-12-15 00:00 | height_standard | 66 | in | + + + +---------+ | 2021-12-15 00:00 | o2_saturation | 98 | % | + + + +---------+ | 2021-12-15 00:00 | respiration_rate | 16 | /min | + + + +---------+ | 2021-12-15 00:00 | temperature_metric | 36.72 | C | | | | | | + + + +---------+ | 2021-12-15 00:00 | | 98.1 | F | | | temperature_standar | | | | | d | | | + + + +---------+ | 2021-12-15 00:00 | weight_metric | 59.42 | kg | + + + +---------+ | 2021-12-15 00:00 | weight_standard | 131 | lb | + + + +---------+ | 2022-01-09 00:00 | BMI | 23.8 | kg/m2 | + + + +---------+ | 2022-01-09 00:00 | BP_diastolic | 65 | mmHg | + + + +---------+ | 2022-01-09 00:00 | BP_systolic | 105 | mmHg | + + + +---------+ | 2022-01-09 00:00 | heart_rate | 76 | /min | + + + +---------+ | 2022-01-09 00:00 | height_metric | 167.64 | cm | + + + +---------+ | 2022-01-09 00:00 | height_standard | 66 | in | + + + +---------+ | 2022-01-09 00:00 | o2_saturation | 100 | % | + + + +---------+ | 2022-01-09 00:00 | respiration_rate | 18 | /min | + + + +---------+ | 2022-01-09 00:00 | temperature_metric | 36.78 | C | | | | | | + + + +---------+ | 2022-01-09 00:00 | | 98.2 | F | | | temperature_standar | | | | | d | | | + + + +---------+ | 2022-01-09 00:00 | weight_metric | 66.9 | kg | + + + +---------+ | 2022-01-09 00:00 | weight_standard | 147.49 | lb | + + + +---------+ | 2022-02-18 00:00 | BMI | 23.8 | kg/m2 | + + + +---------+ | 2022-02-18 00:00 | BP_diastolic | 61 | mmHg | + + + +---------+ | 2022-02-18 00:00 | BP_systolic | 107 | mmHg | + + + +---------+ | 2022-02-18 00:00 | heart_rate | 81 | /min | + + + +---------+ | 2022-02-18 00:00 | height_metric | 167.64 | cm | + + + +---------+ | 2022-02-18 00:00 | height_standard | 66 | in | + + + +---------+ | 2022-02-18 00:00 | o2_saturation | 96 | % | + + + +---------+ | 2022-02-18 00:00 | respiration_rate | 15 | /min | + + + +---------+ | 2022-02-18 00:00 | temperature_metric | 37.17 | C | | | | | | + + + +---------+ | 2022-02-18 00:00 | | 98.9 | F | | | temperature_standar | | | | | d | | | + + + +---------+ | 2022-02-18 00:00 | weight_metric | 66.88 | kg | + + + +---------+ | 2022-02-18 00:00 | weight_standard | 147.44 | lb | + + + +---------+ | 2022-02-18 00:00 | weight_standard | 147.45 | lb | + + + +---------+ | 2022-10-07 00:00 | BMI | 23.8 | kg/m2 | + + + +---------+ | 2022-10-07 00:00 | BP_diastolic | 59 | mmHg | + + + +---------+ | 2022-10-07 00:00 | BP_systolic | 119 | mmHg | + + + +---------+ | 2022-10-07 00:00 | heart_rate | 73 | /min | + + + +---------+ | 2022-10-07 00:00 | height_metric | 167.64 | cm | + + + +---------+ | 2022-10-07 00:00 | height_standard | 66 | in | + + + +---------+ | 2022-10-07 00:00 | o2_saturation | 95 | % | + + + +---------+ | 2022-10-07 00:00 | respiration_rate | 15 | /min | + + + +---------+ | 2022-10-07 00:00 | temperature_metric | 36.72 | C | | | | | | + + + +---------+ | 2022-10-07 00:00 | | 98.1 | F | | | temperature_standar | | | | | d | | | + + + +---------+ | 2022-10-07 00:00 | weight_metric | 66.88 | kg | + + + +---------+ | 2022-10-07 00:00 | weight_standard | 147.44 | lb | + + + +---------+ | 2022-10-07 00:00 | weight_standard | 147.45 | lb | + + + +---------+ | 2022-10-13 00:00 | BMI | 22.7 | kg/m2 | + + + +---------+ | 2022-10-13 00:00 | BP_diastolic | 66 | mmHg | + + + +---------+ | 2022-10-13 00:00 | BP_systolic | 113 | mmHg | + + + +---------+ | 2022-10-13 00:00 | heart_rate | 69 | /min | + + + +---------+ | 2022-10-13 00:00 | height_metric | 167.64 | cm | + + + +---------+ | 2022-10-13 00:00 | height_standard | 66 | in | + + + +---------+ | 2022-10-13 00:00 | o2_saturation | 99 | % | + + + +---------+ | 2022-10-13 00:00 | respiration_rate | 16 | /min | + + + +---------+ | 2022-10-13 00:00 | temperature_metric | 36.94 | C | | | | | | + + + +---------+ | 2022-10-13 00:00 | | 98.5 | F | | | temperature_standar | | | | | d | | | + + + +---------+ | 2022-10-13 00:00 | weight_metric | 63.7 | kg | + + + +---------+ | 2022-10-13 00:00 | weight_standard | 140.43 | lb | + + + +---------+ | 2022-10-13 00:00 | weight_standard | 140.44 | lb | + + + +---------+"
--- OUTSIDE RECORDS SUMMARY | ~2022-11-03 | XMS | Continuity of Care Document ---
Demographics + + + | Address | [address] | | | [place] [address] | + + + | Preferred Language | Unknown | + + + | Marital Status | Never | + + + | Moravian Affiliation | Unknown | + + + | Race | White | + + + | Ethnic Group | Not or | + + + Author + + + | Author | [facility] | + + + | Organization | [facility] | + + + | Address | [address] | | | [place] [address] | + + + | Phone | | + + + Care Team Providers + + + + | Care Seat Joiner Name | Role | Phone | + [...] + + + | (no date) | [place] | [facility] | (no reaction) | (no severity) | | | | [facility] | | | + + + + + + | (no date) | [place] | [facility] | (no reaction) | [...] + + + | (no date) | [place] | [facility] | (no reaction) | [...] + | 2019-08-24 00:00 | Tdap | [facility] | + + + + | 2019-08-24 00:00 | Tdap | [facility] | + + + + | 2019-08-24 00:00 | Tdap | [facility] | + + + + | 2022-10-13 00:00 | No vaccine administered | [facility] | + + + + Medications + + + + | date | description | facility | + + + + | 2021-11-05 00:00 | DIPHENHYDRAMINE HCL | [facility] | + + + + | 2021-12-15 00:00 | DIPHENHYDRAMINE HCL | [facility] | + + + + | 2022-01-09 00:00 | DIPHENHYDRAMINE HCL | [facility] | + + + + | 2022-02-18 00:00 | DIPHENHYDRAMINE HCL | [facility] | + + + + | 2022-10-07 00:00 | DIPHENHYDRAMINE HCL | [facility] | + + + + | 2022-10-13 00:00 | DIPHENHYDRAMINE HCL | [facility] | + + + + | 2022-10-13 00:00 | diphenhydramine | [facility] | | | hydrochloride 25 MG Oral | | | | Capsule | | + + + + | 2021-10-16 00:00 | DOXYLAMINE/PYRIDOXINE HCL | [facility] | + + + + | 2021-10-16 00:00 | DOXYLAMINE/PYRIDOXINE HCL | [facility] | + + + + | 2021-10-18 00:00 | ASENAPINE MALEATE | [facility] | + + + + | 2021-10-24 00:00 | ASENAPINE MALEATE | [facility] | + + + + | 2021-11-05 00:00 | ASENAPINE MALEATE | [facility] | + + + + | 2021-12-15 00:00 | ASENAPINE MALEATE | [facility] | + + + + | 2022-01-09 00:00 | ASENAPINE MALEATE | [facility] | + + + + | 2022-02-18 00:00 | ASENAPINE MALEATE | [facility] | + + + + | 2022-10-07 00:00 | ASENAPINE MALEATE | [facility] | + + + + | 2022-10-13 00:00 | ASENAPINE MALEATE | [facility] | + + + + | 2022-10-13 00:00 | asenapine 2.5 MG | [facility] | | | Sublingual Tablet [Saphris] | | | | | | + + + + | 2021-12-15 00:00 | ONDANSETRON HCL | [facility] | + + + + | 2022-02-18 00:00 | SUCRALFATE | [facility] | + + + + | 2022-10-13 00:00 | SUCRALFATE | [facility] | + + + + | 2022-10-13 00:00 | sucralfate 1000 MG Oral | [facility] | | | Tablet [Carafate] | | + + + + | 2018-01-16 00:00 | BENZONATATE | [facility] | + + + + | 2018-01-16 00:00 | BENZONATATE | [facility] | + + + + | 2018-01-16 00:00 | BENZONATATE | [facility] | + + + + | 2018-01-16 00:00 | benzonatate 100 MG Oral | [facility] | | | Capsule [Tesalbert Perles] | | + + + + | 2019-08-19 00:00 | CEPHALEXIN | [facility] | + + + + | 2019-08-19 00:00 | CEPHALEXIN | [facility] | + + + + | 2019-08-19 00:00 | CEPHALEXIN | [facility] | + + + + | 2019-08-19 00:00 | cephalexin 500 MG Oral | [facility] | | | Capsule [Keflex] | | + + + + | 2018-05-08 00:00 | AZITHROMYCIN | [facility] | + + + + | 2018-05-08 00:00 | AZITHROMYCIN | [facility] | + + + + | 2018-05-08 00:00 | AZITHROMYCIN | [facility] | + + + + | 2021-10-18 00:00 | AZITHROMYCIN | [facility] | + + + + | 2021-10-24 00:00 | AZITHROMYCIN | [facility] | + + + + | 2021-11-05 00:00 | AZITHROMYCIN | [facility] | + + + + | 2021-12-15 00:00 | AZITHROMYCIN | [facility] | + + + + | 2022-01-09 00:00 | AZITHROMYCIN | [facility] | + + + + | 2022-02-18 00:00 | AZITHROMYCIN | [facility] | + + + + | 2022-10-07 00:00 | AZITHROMYCIN | [facility] | + + + + | 2022-10-13 00:00 | AZITHROMYCIN | [facility] | + + + + | 2018-05-08 00:00 | azithromycin 250 MG Oral | [facility] | | | Tablet [Zithromax] | | + + + + | 2022-10-13 00:00 | azithromycin 250 MG Oral | [facility] | | | Tablet [Zithromax] | | + + + + | 2021-07-06 00:00 | PANTOPRAZOLE SODIUM | [facility] | + + + + | 2021-07-06 00:00 | PANTOPRAZOLE SODIUM | [facility] | + + + + | 2021-07-06 00:00 | PANTOPRAZOLE SODIUM | [facility] | + + + + | 2022-10-13 00:00 | PANTOPRAZOLE SODIUM | [facility] | + + + + | 2021-07-06 00:00 | pantoprazole 40 MG Delayed | [facility] | | | Release Oral Tablet | | | | [Protonix] | | + + + + | 2022-10-13 00:00 | pantoprazole 40 MG Delayed | [facility] | | | Release Oral Tablet | | | | [Protonix] | | + + + + | 2022-02-18 00:00 | FAMOTIDINE | [facility] | + + + + | 2022-10-07 00:00 | FAMOTIDINE | [facility] | + + + + | 2021-11-05 00:00 | FOLIC ACID | [facility] | + + + + | 2021-12-15 00:00 | FOLIC ACID | [facility] | + + + + | 2022-01-09 00:00 | FOLIC ACID | [facility] | + + + + | 2022-02-18 00:00 | FOLIC ACID | [facility] | + + + + | 2022-10-07 00:00 | FOLIC ACID | [facility] | + + + + | 2022-10-13 00:00 | FOLIC ACID | [facility] | + + + + | 2022-10-13 00:00 | folic acid 1 MG Oral | [facility] | | | Tablet | | + + + + | 2021-10-18 00:00 | GABAPENTIN | [facility] | + + + + | 2021-10-24 00:00 | GABAPENTIN | [facility] | + + + + | 2021-11-05 00:00 | GABAPENTIN | [facility] | + + + + | 2021-12-15 00:00 | GABAPENTIN | [facility] | + + + + | 2022-01-09 00:00 | GABAPENTIN | [facility] | + + + + | 2022-02-18 00:00 | GABAPENTIN | [facility] | + + + + | 2022-10-07 00:00 | GABAPENTIN | [facility] | + + + + | 2022-10-13 00:00 | GABAPENTIN | [facility] | + + + + | 2022-10-13 00:00 | gabapentin 100 MG Oral | [facility] | | | Capsule | | + + + + | 2021-11-05 00:00 | METOCLOPRAMIDE HCL | [facility] | + + + + | 2021-12-15 00:00 | METOCLOPRAMIDE HCL | [facility] | + + + + | 2022-01-09 00:00 | METOCLOPRAMIDE HCL | [facility] | + + + + | 2022-02-18 00:00 | METOCLOPRAMIDE HCL | [facility] | + + + + | 2022-10-07 00:00 | METOCLOPRAMIDE HCL | [facility] | + + + + | 2022-10-13 00:00 | METOCLOPRAMIDE HCL | [facility] | + + + + | 2022-10-13 00:00 | metoclopramide 5 MG Oral | [facility] | | | Tablet | | + + + + | 2021-07-06 00:00 | ONDANSETRON | [facility] | + + + + | 2021-07-06 00:00 | ONDANSETRON | [facility] | + + + + | 2021-07-06 00:00 | ONDANSETRON | [facility] | + + + + | 2021-07-06 00:00 | ondansetron 8 MG | [facility] | | | Disintegrating Oral Tablet | | + + + + | 2018-05-08 00:00 | predniSONE | [facility] | + + + + | 2018-05-08 00:00 | predniSONE | [facility] | + + + + | 2018-05-08 00:00 | predniSONE | [facility] | + + + + | 2021-10-18 00:00 | predniSONE | [facility] | + + + + | 2021-10-24 00:00 | predniSONE | [facility] | + + + + | 2021-11-05 00:00 | predniSONE | [facility] | + + + + | 2021-12-15 00:00 | predniSONE | [facility] | + + + + | 2022-01-09 00:00 | predniSONE | [facility] | + + + + | 2022-02-18 00:00 | predniSONE | [facility] | + + + + | 2022-10-07 00:00 | predniSONE | [facility] | + + + + | 2022-10-13 00:00 | predniSONE | [facility] | + + + + | 2018-05-08 00:00 | prednisone 20 MG Oral | [facility] | | | Tablet | | + + + + | 2022-10-13 00:00 | prednisone 20 MG Oral | [facility] | | | Tablet | | + + + + | 2021-10-18 00:00 | ARIPIPRAZOLE | [facility] | + + + + | 2021-10-24 00:00 | ARIPIPRAZOLE | [facility] | + + + + | 2021-11-05 00:00 | ARIPIPRAZOLE | [facility] | + + + + | 2021-12-15 00:00 | ARIPIPRAZOLE | [facility] | + + + + | 2022-01-09 00:00 | ARIPIPRAZOLE | [facility] | + + + + | 2022-02-18 00:00 | ARIPIPRAZOLE | [facility] | + + + + | 2022-10-07 00:00 | ARIPIPRAZOLE | [facility] | + + + + | 2022-10-13 00:00 | ARIPIPRAZOLE | [facility] | + + + + | 2022-10-13 00:00 | aripiprazole 2 MG Oral | [facility] | | | Tablet [Abilify] | | + + + + | 2018-01-16 00:00 | ALBUTEROL SULFATE | [facility] | + + + + | 2018-01-16 00:00 | ALBUTEROL SULFATE | [facility] | + + + + | 2018-01-16 00:00 | ALBUTEROL SULFATE | [facility] | + + + + | 2018-01-16 00:00 | albuterol 0.83 MG/ML | [facility] | | | Inhalation Solution | | + + + + | 2021-10-18 00:00 | AMOXICILLIN/POTASSIUM CLAV | [facility] | | | | | + + + + | 2021-10-24 00:00 | AMOXICILLIN/POTASSIUM CLAV | [facility] | | | | | + + + + | 2021-11-05 00:00 | AMOXICILLIN/POTASSIUM CLAV | [facility] | | | | | + + + + | 2021-12-15 00:00 | AMOXICILLIN/POTASSIUM CLAV | [facility] | | | | | + + + + | 2022-01-09 00:00 | AMOXICILLIN/POTASSIUM CLAV | [facility] | | | | | + + + + | 2022-02-18 00:00 | AMOXICILLIN/POTASSIUM CLAV | [facility] | | | | | + + + + | 2022-10-07 00:00 | AMOXICILLIN/POTASSIUM CLAV | [facility] | | | | | + + + + | 2022-10-13 00:00 | AMOXICILLIN/POTASSIUM CLAV | [facility] | | | | | + + + + | 2022-10-13 00:00 | amoxicillin 875 MG / | [facility] | | | clavulanate 125 MG Oral | | | | Tablet [Augment | | + + + + | 2021-10-18 00:00 | TRAZODONE HCL | [facility] | + + + + | 2021-10-24 00:00 | TRAZODONE HCL | [facility] | + + + + | 2021-11-05 00:00 | TRAZODONE HCL | [facility] | + + + + | 2021-12-15 00:00 | TRAZODONE HCL | [facility] | + + + + | 2022-01-09 00:00 | TRAZODONE HCL | [facility] | + + + + | 2022-02-18 00:00 | TRAZODONE HCL | [facility] | + + + + | 2022-10-07 00:00 | TRAZODONE HCL | [facility] | + + + + | 2022-10-13 00:00 | TRAZODONE HCL | [facility] | + + + + | 2022-10-13 00:00 | trazodone hydrochloride 50 | [facility] | | | MG Oral Tablet | | + + + + | 2018-05-08 00:00 | ALBUTEROL SULFATE | [facility] | + + + + | 2018-05-08 00:00 | ALBUTEROL SULFATE | [facility] | + + + + | 2018-05-08 00:00 | ALBUTEROL SULFATE | [facility] | + + + + | 2021-10-18 00:00 | ALBUTEROL SULFATE | [facility] | + + + + | 2021-10-24 00:00 | ALBUTEROL SULFATE | [facility] | + + + + | 2021-11-05 00:00 | ALBUTEROL SULFATE | [facility] | + + + + | 2021-12-15 00:00 | ALBUTEROL SULFATE | [facility] | + + + + | 2022-01-09 00:00 | ALBUTEROL SULFATE | [facility] | + + + + | 2022-02-18 00:00 | ALBUTEROL SULFATE | [facility] | + + + + | 2022-10-07 00:00 | ALBUTEROL SULFATE | [facility] | + + + + | 2022-10-13 00:00 | ALBUTEROL SULFATE | [facility] | + + + + | 2018-05-08 00:00 | [id number] 200 ACTUAT | [facility] | | | albuterol 0.09 MG/ACTUAT | | | | Metered Dose I | | + + + + | 2022-10-13 00:00 | [id number] 200 ACTUAT | [facility] | | | albuterol 0.09 MG/ACTUAT | | | | Metered Dose I | | + + + + | 2021-10-18 00:00 | CLONIDINE HCL | [facility] | + + + + | 2021-10-24 00:00 | CLONIDINE HCL | [facility] | + + + + | 2021-11-05 00:00 | CLONIDINE HCL | [facility] | + + + + | 2021-12-15 00:00 | CLONIDINE HCL | [facility] | + + + + | 2022-01-09 00:00 | CLONIDINE HCL | [facility] | + + + + | 2022-02-18 00:00 | CLONIDINE HCL | [facility] | + + + + | 2022-10-07 00:00 | CLONIDINE HCL | [facility] | + + + + | 2022-10-13 00:00 | CLONIDINE HCL | [facility] | + + + + | 2022-10-13 00:00 | clonidine hydrochloride | [facility] | | | 0.2 MG Oral Tablet | | | | [Catapres] | | + + + + | 2021-10-16 00:00 | PROMETHAZINE HCL | [facility] | + + + + | 2021-10-16 00:00 | PROMETHAZINE HCL | [facility] | + + + + | 2022-02-18 00:00 | PROMETHAZINE HCL | [facility] | + + + + Problems + + + + | date | description | facility | + + + + | 2014-01-22 00:00 | Contusion of scalp | [facility] | + + + + | 2014-01-22 00:00 | Contusion of scalp | [facility] | + + + + | 2014-01-22 00:00 | Contusion of scalp | [facility] | + + + + | 2014-04-28 00:00 | Chest wall pain | [facility] | + + + + | 2014-04-28 00:00 | Chest wall pain | [facility] | + + + + | 2014-04-28 00:00 | Chest wall pain | [facility] | + + + + | 2017-07-08 00:00 | Intentional drug overdose | [facility] | + + + + | 2017-07-08 00:00 | Intentional drug overdose | [facility] | + + + + | 2017-07-08 00:00 | Intentional drug overdose | [facility] | + + + + | 2018-01-07 00:00 | Bronchitis | [facility] | + + + + | 2018-01-07 00:00 | Bronchitis | [facility] | + + + + | 2018-01-07 00:00 | Bronchitis | [facility] | + + + + | 2018-05-07 00:00 | Suicide attempt | [facility] | + + + + | 2018-05-07 00:00 | Attempted suicide | [facility] | + + + + | 2018-05-07 00:00 | Attempted suicide | [facility] | + + + + | 2018-05-07 00:00 | Attempted suicide | [facility] | + + + + | 2018-05-07 00:00 | Overdose of | [facility] | | | antihypertensive agent | | + + + + | 2018-05-07 00:00 | Overdose of | [facility] | | | antihypertensive agent | | + + + + | 2018-05-07 00:00 | Overdose of | [facility] | | | antihypertensive agent | | + + + + | 2019-01-06 00:00 | Methamphetamine abuse | [facility] | + + + + | 2019-01-06 00:00 | Methamphetamine abuse | [facility] | + + + + | 2019-01-06 00:00 | Methamphetamine abuse | [facility] | + + + + | 2019-03-20 00:00 | Overdose | [facility] | + + + + | 2019-03-20 00:00 | Substance abuse | [facility] | + + + + | 2019-03-20 00:00 | Substance abuse | [facility] | + + + + | 2019-03-20 00:00 | Substance abuse | [facility] | + + + + | 2019-03-20 00:00 | Drug overdose | [facility] | + + + + | 2019-03-20 00:00 | Drug overdose | [facility] | + + + + | 2019-03-20 00:00 | Drug overdose | [facility] | + + + + | 2019-04-13 00:00 | Sinus tachycardia | [facility] | + + + + | 2019-04-13 00:00 | Sinus tachycardia | [facility] | + + + + | 2019-04-13 00:00 | Sinus tachycardia | [facility] | + + + + | 2019-08-19 00:00 | UTI (urinary tract | [facility] | | | infection) | | + + + + | 2019-08-19 00:00 | Urinary tract infection | [facility] | + + + + | 2019-08-19 00:00 | Urinary tract infection | [facility] | + + + + | 2019-08-19 00:00 | Urinary tract infection | [facility] | + + + + | 2021-04-25 00:00 | COVID | [facility] | + + + + | 2021-04-25 00:00 | Infection due to severe | [facility] | | | acute respiratory syndrome | | | | coronavirus 2 (SARS-CoV-2) | | + + + + | 2021-04-25 00:00 | Infection due to severe | [facility] | | | acute respiratory syndrome | | | | coronavirus 2 (SARS-CoV-2) | | + + + + | 2021-04-25 00:00 | Infection due to severe | [facility] | | | acute respiratory syndrome | | | | coronavirus 2 (SARS-CoV-2) | | + + + + | 2021-08-29 00:00 | Threatened | [facility] | + + + + | 2021-08-29 00:00 | Threatened | [facility] | + + + + | 2021-08-29 00:00 | Threatened | [facility] | + + + + | 2021-09-10 00:00 | Tear of meniscus of left | [facility] | | | knee | | + + + + | 2021-09-10 00:00 | Tear of meniscus of left | [facility] | | | knee | | + + + + | 2021-09-10 00:00 | Tear of meniscus of left | [facility] | | | knee | | + + + + | 2021-10-16 00:00 | Multiple gestation | [facility] | + + + + | 2021-10-16 00:00 | Multiple gestation | [facility] | + + + + | 2021-10-16 00:00 | Multiple gestation | [facility] | + + + + | 2021-10-16 00:00 | Abdominal pain | [facility] | + + + + | 2021-10-16 00:00 | Abdominal pain | [facility] | + + + + | 2021-10-16 00:00 | Abdominal pain | [facility] | + + + + | 2021-10-16 00:00 | Vomiting | [facility] | + + + + | 2021-10-16 00:00 | Vomiting | [facility] | + + + + | 2021-10-16 00:00 | Vomiting | [facility] | + + + + | 2021-11-01 00:00 | Venus-Chapa tear | [facility] | + + + + | 2021-11-01 00:00 | Venus-Chapa tear | [facility] | + + + + | 2021-11-09 00:00 | Patient left without being | [facility] | | | seen | | + + + + | 2021-11-09 00:00 | Patient left without being | [facility] | | | seen | | + + + + | 2021-12-15 00:00 | Hyperemesis gravidarum | [facility] | | | before end of 22 week | | | | gestation with dehydration | | + + + + | 2021-12-15 00:00 | Hyperemesis gravidarum | [facility] | | | before end of 22 week | | | | gestation with dehydration | | + + + + | 2022-02-18 00:00 | Hyperemesis gravidarum | [facility] | + + + + | 2022-02-18 00:00 | Hyperemesis gravidarum | [facility] | + + + + | 2022-03-08 05:45 | TRIPLET PREG, UNSP NUM | [facility] | | | PLCNTA AMNIO SACS, FIRST | | | | TRIMESTER | | + + + + | 2022-03-08 05:45 | 14 WEEKS GESTATION OF | [facility] | | | | | + + + + | 2022-10-07 00:00 | Hallucinogen overdose | [facility] | + + + + | 2022-10-07 00:00 | Hallucinogen overdose | [facility] | + + + + | 2022-10-07 00:00 | Overdose of undetermined | [facility] | | | intent | | + + + + | 2022-10-07 00:00 | Overdose of undetermined | [facility] | | | intent | [...] | 2022-10-13 00:00 | Epigastric pain | [facility] | + + + + | 2022-10-13 13:02 | EPIGASTRIC PAIN | [facility] | + + + + | 2022-10-13 13:02 | NAUSEA WITH VOMITING, | [facility] | | | UNSPECIFIED | | + + + + | 2022-10-13 13:02 | OTHER UM NURSE (CURRENT) | [facility] | | | DRUG [...] | | 2021-08-29 | [facility] | [id number] | (missing) | (missing) | | (unavailable | 13:44 | [facility] | | | | ) | | [facility] | | | | + + + + + + + + + | Result panel 8 | + + + + + + + + + | | 2021-08-29 | [facility] | [id number] | (missing) | (missing) | | (unavailable | 13:44 | [facility] | | | | ) | | [facility] | | | | + + + + + + + + + | Result panel 9 | + + + + + + + + + | | 2021-08-29 | [facility] | [id number] | (missing) | (missing) | | (unavailable [...] (missing) | | (unavailable | 17:22 | [facility] | | | | | [...] | | 2021-10-16 | [facility] | [id number] | (missing) | (missing) | | (unavailable [...] | | 2021-10-16 | [facility] | [id number] | (missing) | (missing) | | (unavailable [...] | | 2021-10-16 | [facility] | [id number] | (missing) | (missing) | | (unavailable [...] (missing) | | (unavailable | 19:15 | [facility] | | | | | [...] | | 2021-12-15 | [facility] | [id number] | (missing) | (missing) | | (unavailable [...] | | 2021-12-15 | [facility] | [id number] | (missing) | (missing) | | (unavailable [...] (missing) | | (unavailable | 18:45 | [facility] | | | | | ) | [...] POSITIVE | (missing) | (missing) | | qacpm-5-liao | 03:53 | [facility] | | | [...] 2022-10-13 00:00 | Never smoker [facility] | + + + + Vital [...]
--- OUTSIDE RECORDS SUMMARY | 2022-11-03 15:02 | XMS ---
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 - Patient with suicidal and/or homicidal ideations eloped. - Patient eloped with IV in place. 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 E.D. VISIT COUNT (12 MO.) [address] [facility] [facility] TOTAL 8 NOTE: Visits indicate total known visits. ED/UCC VISIT TRACKING (12 MO.) 11/03/2022 15:[address] [facility] [address] [facility] [place] TYPE: Emergency COMPLAINT: - LACERATION 10/13/2022 13:02 [facility] [place] TYPE: Emergency COMPLAINT: - N/V/D, WEAKNESS, DEHYDRATION DIAGNOSES: - Allergy status to other drugs, medicaments and biological substances - Allergy to eggs - Bee allergy status - Epigastric pain - Nausea with vomiting, unspecified - Other penitentiary (current) drug therapy 10/07/2022 03:34 [facility] TYPE: Emergency COMPLAINT: - POSS OVERDOSE DIAGNOSES: - Allergy status to other drugs, medicaments and biological substances - Bee allergy status - Other fatigue - Other penitentiary (current) drug therapy - Poisoning by other psychodysleptics [hallucinogens], accidental (unintentional), initial encounter 05/15/2022 12:04 [facility] TYPE: Emergency DIAGNOSES: 18443. ring warm on r eye 25436. Dermatophytosis, unspecified 02/18/2022 02:50 [facility] [place] TYPE: Emergency COMPLAINT: - 23 WKS PREG, VOMTIING BLOOD DIAGNOSES: - 23 weeks gestation of - Allergy status to other drugs, medicaments and biological substances - Bee allergy status - Diseases of the digestive system complicating , second trimester - Gastro-esophageal laceration-hemorrhage syndrome - Mild hyperemesis gravidarum - Nausea with vomiting, unspecified - Other salvage determiner (current) drug therapy 01/09/2022 14:43 [facility] [...] Hyperemesis gravidarum with metabolic disturbance - Other penitentiary (current) drug therapy 11/09/2021 16:05 [facility] [place] TYPE: Emergency COMPLAINT: - R HAND SWELLING BEE STING INPATIENT VISIT TRACKING (12 MO.) 03/15/2022 16:37 [facility] TYPE: Obstetrics DIAGNOSES: 30512. False labor before 37 completed weeks of gestation, unspecified trimester 38808. Premature rupture of membranes, triplets 04186. Depression, unspecified 29555. Major depressive disorder, recurrent, unspecified 22758. Other acute postprocedural pain 09981. Other mental disorders complicating , unspecified trimester 73753. Post-traumatic stress disorder, unspecified 11797. Triplet , trichorionic/triamniotic, unspecified trimester 03/08/2022 13:39 [facility] TYPE: Womens Services COMPLAINT: - early labor DIAGNOSES: - early labor [email or web address]
[2022-11-03 15:53] VITALS: BP 134/90
== END 2022-11-03 15:54 | disposition home or self-care (01) ==
LOC: ED 15:00
DX: S51.812A Laceration without foreign body of left forearm, initial encounter (principal); W26.8XXA Contact with other sharp object(s), not elsewhere classified, initial encounter; Z88.8 Allergy status to other drugs, medicaments and biological substances; Z91.030 Bee allergy status; Z79.899 Other long term (current) drug therapy
CPT/HCPCS: 99282

== ENCOUNTER 2023-02-21 06:17 | Emergency (ER) | payer OTHER ==
[~2023-02-21] VITALS: Ht 167.6 cm; Wt 63.7 kg
[2023-02-21 07:06] VITALS: BP 141/86
== END 2023-02-21 07:09 | disposition home or self-care (01) ==
LOC: ED 06:17
DX: S60.222A Contusion of left hand, initial encounter (principal); V89.2XXA Person injured in unspecified motor-vehicle accident, traffic, initial encounter; Z88.8 Allergy status to other drugs, medicaments and biological substances; Z91.030 Bee allergy status
CPT/HCPCS: 73130

== ENCOUNTER 2023-02-27 01:13 | Emergency (ER) | payer OTHER ==
[~2023-02-27] VITALS: Ht 167.6 cm; Wt 67.0 kg
[~2023-02-27 01:13] MED LIST changes: +K-TAB ER20 MEQ PO
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
[2023-02-27 01:35] LABS: BASOPHILS 0.3 % (0-2); EOSINOPHILS 3.2 % (0-6); HEMATOCRIT 40.3 % (35.0-50.0); LYMPHOCYTES 30.9 % (24-44); MCH 31.2 (27-36); MCHC 34.7 g/dl (30-36); MONOCYTES 7.7 % (0-12); NEUTROPHILS 57.9 % (39-80); PLATELET COUNT 238 K/uL (140-440); RBC 4.48 M/ul (4.3-5.7); RDW 12.8 (10.5-15.0)
[2023-02-27 01:55] LABS: ALBUMIN 4.5 g/dL (3.4-5.0); ALBUMIN/GLOBULIN RATIO 1.45 (1.1-2.4); ANION GAP 12.8 (7-21); BILIRUBIN, TOTAL 0.6 ng/dL (0.2-1.0); BUN/CREATININE RATIO 19.51 (6.0-28.6); CALCIUM 8.8 mg/dL (8.5-10.1); CREATININE, SERUM 0.82 mg/dL (0.55-1.02); POTASSIUM 3.8 mmol/L (3.5-5.1); PROTEIN, TOTAL 7.6 g/dL (6.4-8.2)
[2023-02-27] MEDS ORDERED: PROPRANOLOL HCL10 MG PO (02:05)
[2023-02-27 02:34] VITALS: BP 116/71
--- NOTE | 2023-02-27 22:54 | EKG ---
[facility] [address] [facility] [place] [address] Signed Sinus tachycardia Otherwise normal ECG When compared with ECG of 24-FEB-2023 23:21, Criteria for Septal infarct are no longer present ST no longer depressed in Lateral leads T wave inversion no longer evident in Lateral leads Confirmed by Tamiko Cummings MD () on 02/27/2023 10:54:45 PM Electronically Signed By: TAMIKO CUMMINGS MD 02/27/23 2254 PATIENT NAME: JUMANA DOTSON Electrocardiogram DATE OF : [birth year] PHYSICIAN: TAMIKO CUMMINGS MD REPORT #: [id number] REPORT IS CONFIDENTIAL AND NOT TO BE RELEASED WITHOUT AUTHORIZATION
== END 2023-02-27 02:34 | disposition home or self-care (01) ==
LOC: ED 01:13
PROVIDERS: Family Medicine
DX: R00.2 Palpitations (principal); Z91.030 Bee allergy status; Z88.8 Allergy status to other drugs, medicaments and biological substances; Z79.899 Other long term (current) drug therapy
CPT/HCPCS: 36415; 80053; 84443; 85025; 93005; 93010; J7121

== ENCOUNTER 2023-05-03 16:54 | Emergency (ER) | payer OTHER ==
[~2023-05-03] VITALS: Ht 167.6 cm; Wt 67.0 kg
[~2023-05-03 16:54] MED LIST changes: +CEPHALEXIN500 M1 PO; +PROPRANOLOL HCL10 MG PO
[2023-05-03 17:17] LABS: BASOPHILS 0.4 % (0-2); EOSINOPHILS 4.5 % (0-6); HEMATOCRIT 43.2 % (35.0-50.0); HEMOGLOBIN 14.9 g/dL (12.0-18.0); LYMPHOCYTES 28.1 % (24-44); MCH 31.2 (27-36); MCHC 34.6 g/dl (30-36); MCV 90.2 fl (81-99); MONOCYTES 8.8 % (0-12); NEUTROPHILS 58.2 % (39-80); PLATELET COUNT 225 K/uL (140-440); RBC 4.79 M/ul (4.3-5.7); RDW 13.1 (10.5-15.0)
[2023-05-03 17:38] LABS: ALBUMIN 4.4 g/dL (3.4-5.0); ALBUMIN/GLOBULIN RATIO 1.26 (1.1-2.4); ALKALINE PHOSPHATASE 69 U/L (46-116); ALT (SGPT) 15 U/L (14-59); ANION GAP 14.8 (7-21); AST (SGOT) 14 U/L (15-37); BILIRUBIN, TOTAL 0.9 ng/dL (0.2-1.0); BUN/CREATININE RATIO 12.94 (6.0-28.6); CALCIUM 9.1 mg/dL (8.5-10.1); CARBON DIOXIDE 26 mmol/L (21-32); CHLORIDE 100 mmol/L (98-107); CREATININE, SERUM 0.85 mg/dL (0.55-1.02); GLOMERULAR FILTRATION RATE,EST 101 mL/min (>60); POTASSIUM 3.8 mmol/L (3.5-5.1); PROTEIN, TOTAL 7.9 g/dL (6.4-8.2); TSH, 3RD GENERATION 1.776 uIU/mL (0.516-4.130); UREA NITROGEN 11 mg/dL (7-18)
[2023-05-03 18:42] LABS: AMPHETAMINES, URINE NEGATIVE (NEGATIVE); BARBITURATES, URINE NEGATIVE (NEGATIVE); BENZODIAZEPINE, URINE NEGATIVE (NEGATIVE); BUPRENORPHINE, URINE NEGATIVE (NEGATIVE); CANNABINOID, URINE POSITIVE (NEGATIVE); COCAINE, URINE NEGATIVE (NEGATIVE); ECSTASY, URINE NEGATIVE (NEGATIVE); FENTANYL, URINE NEGATIVE (NEGATIVE); METHADONE, URINE NEGATIVE (NEGATIVE); OPIATES, URINE NEGATIVE (NEGATIVE); OXYCODONE, URINE NEGATIVE (NEGATIVE); PHENCYCLIDINE, URINE NEGATIVE (NEGATIVE)
[2023-05-03 19:30] VITALS: BP 129/73
--- NOTE | 2023-05-04 07:46 | EKG ---
[facility] [address] [facility] [place], [place] [address] Signed Normal sinus rhythm Normal ECG When compared with ECG of 27-FEB-2023 01:24, No significant change was found Confirmed by NAKIA WILSON MD ([id number]) on 05/04/2023 7:46:35 AM Electronically Signed By: NAKIA WILSON 05/04/23 0746 PATIENT NAME: JUMANA DOTSON Electrocardiogram DATE OF : [birth year] PHYSICIAN: NAKIA WILSON REPORT #: [id number] REPORT IS CONFIDENTIAL AND NOT TO BE RELEASED WITHOUT AUTHORIZATION
[2023-05-05 20:25] LABS: THYROXINE 8.4 ug/dL (4.50-11.70)
== END 2023-05-03 19:30 | disposition home or self-care (01) ==
LOC: ED 16:54
PROVIDERS: Emergency Medicine
DX: I47.10 Supraventricular tachycardia, unspecified (principal); Z88.8 Allergy status to other drugs, medicaments and biological substances; Z91.030 Bee allergy status
CPT/HCPCS: 36415; 80053; 80307; 83735; 84436; 84443; 84484; 84703; 85025; 93005; 93010; 99285-25

== ENCOUNTER 2023-09-19 01:22 | Emergency (ER) | payer OTHER ==
[~2023-09-19 01:22] MED LIST changes: +HYDROCODON-ACE1 EA10 PO
[2023-09-19] MEDS ORDERED: LORazepam 1 MG TAB PO ONE (01:45)
[2023-09-19 01:51] LABS: BASOPHILS 0.4 % (0-2); EOSINOPHILS 2.1 % (0-6); HEMATOCRIT 42.2 % (35.0-50.0); HEMOGLOBIN 14.5 g/dL (12.0-18.0); LYMPHOCYTES 28.7 % (24-44); MCHC 34.3 g/dl (30-36); MCV 90.4 fl (81-99); MONOCYTES 9.2 % (0-12); NEUTROPHILS 59.6 % (39-80); PLATELET COUNT 236 K/uL (140-440); RBC 4.67 M/ul (4.3-5.7); RDW 12.8 (10.5-15.0)
[2023-09-19 02:10] LABS: ALBUMIN 4.4 g/dL (3.4-5.0); ALBUMIN/GLOBULIN RATIO 1.42 (1.1-2.4); ANION GAP 18.5 (7-21); BILIRUBIN, TOTAL 0.5 ng/dL (0.2-1.0); BUN/CREATININE RATIO 19.14 (6.0-28.6); CALCIUM 9.2 mg/dL (8.5-10.1); CREATININE, SERUM 0.94 mg/dL (0.55-1.02); POTASSIUM 3.5 mmol/L (3.5-5.1); PROTEIN, TOTAL 7.5 g/dL (6.4-8.2)
[2023-09-19] MEDS ORDERED: VISTARIL25 MG PO ×2 (02:16)
[2023-09-19 02:30] VITALS: BP 129/69
[2023-09-19] MEDS ORDERED: hydrOXYzine pamoate 50 MG HOME.PACK PO ONE (02:30)
[2023-09-19] MEDS ORDERED: ONDANSETRON ODT8 MG PO (09:34)
--- NOTE | 2023-09-20 14:43 | EKG ---
[facility] [address] [facility] [place], [place] [address] Signed Normal sinus rhythm Normal ECG When compared with ECG of 03-MAY-2023 17:00, No significant change was found Confirmed by Sadia Archibald ([id number]) on 09/20/2023 2:43:47 PM Electronically Signed By: SADIA ARCHIBALD MD 09/20/23 1443 PATIENT NAME: JUMANA DOTSON Electrocardiogram DATE OF : [birth year] PHYSICIAN: SADIA ARCHIBALD MD REPORT #: [id number] REPORT IS CONFIDENTIAL AND NOT TO BE RELEASED WITHOUT AUTHORIZATION
== END 2023-09-19 02:30 | disposition home or self-care (01) ==
LOC: ED 01:22
PROVIDERS: Family Medicine
DX: F41.0 Panic disorder [episodic paroxysmal anxiety] (principal); Z91.030 Bee allergy status; Z88.8 Allergy status to other drugs, medicaments and biological substances
CPT/HCPCS: 36415; 71045; 80053; 84484; 84703; 85025; A9270-GY

== ENCOUNTER 2023-09-19 07:30 | Emergency (ER) | payer OTHER ==
[~2023-09-19] VITALS: Ht 167.6 cm; Wt 62.4 kg
[~2023-09-19 07:30] MED LIST changes: +VISTARIL25 MG PO
[2023-09-19] MEDS ORDERED: HYDROmorphone HCL 1 MG/ML SYR IV PRN (07:45)
[2023-09-19] MEDS ORDERED: ondansetron HCL 4 MG/2 ML VIAL IV ONE (07:45)
[2023-09-19] MEDS ORDERED: SODIUM CHLORIDE 0.9% 1,000 ML IV ONE (07:45)
[2023-09-19] MEDS ORDERED: droPERidol 5 MG/2 ML VIAL IV ONE (08:00)
[2023-09-19 08:07] LABS: BASOPHILS 0.6 % (0-2); EOSINOPHILS 2.1 % (0-6); HEMATOCRIT 41.5 % (35.0-50.0); LYMPHOCYTES 20.3 % (24-44); MCH 30.8 (27-36); MCHC 33.8 g/dl (30-36); MCV 91.2 fl (81-99); MONOCYTES 8.1 % (0-12); NEUTROPHILS 68.9 % (39-80); PLATELET COUNT 202 K/uL (140-440); RBC 4.55 M/ul (4.3-5.7); RDW 12.7 (10.5-15.0)
[2023-09-19 08:23] LABS: ALBUMIN 4.3 g/dL (3.4-5.0); ALBUMIN/GLOBULIN RATIO 1.43 (1.1-2.4); ANION GAP 14.4 (7-21); BILIRUBIN, TOTAL 0.7 ng/dL (0.2-1.0); BUN/CREATININE RATIO 19.75 (6.0-28.6); CALCIUM 8.5 mg/dL (8.5-10.1); CREATININE, SERUM 0.81 mg/dL (0.55-1.02); POTASSIUM 3.4 mmol/L (3.5-5.1); PROTEIN, TOTAL 7.3 g/dL (6.4-8.2)
[2023-09-19] MEDS ORDERED: ONDANSETRON ODT8 MG PO (09:34)
[2023-09-19 10:24] VITALS: BP 112/63
== END 2023-09-19 10:20 | disposition home or self-care (01) ==
LOC: ED 07:30
PROVIDERS: Emergency Medicine
DX: R51.9 Headache, unspecified (principal); F41.9 Anxiety disorder, unspecified; Z88.8 Allergy status to other drugs, medicaments and biological substances; Z91.030 Bee allergy status
CPT/HCPCS: 36415; 70450; 80053; 85025; J1790; J2405; J7030

== ENCOUNTER 2023-10-21 21:00 | Emergency (ER) | payer OTHER ==
[~2023-10-21] VITALS: Ht 167.6 cm; Wt 65.0 kg
[2023-10-21] MEDS ORDERED: CHLORHEXIDINE473 ML MM (21:33)
[2023-10-21] MEDS ORDERED: AMOXICILLIN500 MG PO (21:33)
[2023-10-21] MEDS ORDERED: ondansetron HCL 4 MG/2 ML VIAL IV ONE (22:45)
[2023-10-21] MEDS ORDERED: MORPHINE SULFATE 4 MG/ML VIAL IV ONE (22:45)
[2023-10-21 23:07] LABS: BASOPHILS 0.3 % (0-2); EOSINOPHILS 1.9 % (0-6); HEMATOCRIT 37.1 % (35.0-50.0); HEMOGLOBIN 12.8 g/dL (12.0-18.0); LYMPHOCYTES 19.2 % (24-44); MCH 31.5 (27-36); MCHC 34.6 g/dl (30-36); MCV 90.9 fl (81-99); NEUTROPHILS 70.6 % (39-80); PLATELET COUNT 197 K/uL (140-440); RBC 4.08 M/ul (4.3-5.7); RDW 12.8 (10.5-15.0)
[2023-10-21 23:15] LABS: ALBUMIN/GLOBULIN RATIO 1.29 (1.1-2.4); ANION GAP 16.6 (7-21); BILIRUBIN, TOTAL 0.8 ng/dL (0.2-1.0); BUN/CREATININE RATIO 16.04 (6.0-28.6); CALCIUM 8.5 mg/dL (8.5-10.1); CREATININE, SERUM 0.81 mg/dL (0.55-1.02); POTASSIUM 3.6 mmol/L (3.5-5.1); PROTEIN, TOTAL 7.1 g/dL (6.4-8.2)
[2023-10-21] MEDS ORDERED: KETOROLAC TROMETHAMINE 30 MG/ML VIAL IV ONE (23:30)
[2023-10-21] MEDS ORDERED: PROCHLORPERAZINE EDISYLATE 10 MG/2 ML VIAL IV ONE (23:30)
[2023-10-22] MEDS ORDERED: AMP/SULBACTAM SOD 3 GM in SODIUM CHLORIDE 0.9% 100 ML IV ONE (00:45)
[2023-10-22] MEDS ORDERED: AMP/SULBACTAM SOD 3 GM VIAL IV ONE (00:48)
[2023-10-22] MEDS ORDERED: PERCOCET 5-3251 EACH PO (01:46)
[2023-10-22] MEDS ORDERED: CIPRO500 MG PO (01:46)
[2023-10-22] MEDS ORDERED: OXYCODONE/ACETAMINOPHEN 1 TAB HOME.PACK PO ONE (02:00)
[2023-10-22 02:32] VITALS: BP 105/55
== END 2023-10-22 02:32 | disposition home or self-care (01) ==
LOC: ED 21:00
PROVIDERS: Family Medicine
DX: T81.40XA Infection following a procedure, unspecified, initial encounter (principal); Y83.9 Surgical procedure, unspecified as the cause of abnormal reaction of the patient, or of later complication, without mention of misadventure at the time of the procedure; Z88.8 Allergy status to other drugs, medicaments and biological substances; Z91.030 Bee allergy status; Z79.899 Other long term (current) drug therapy
CPT/HCPCS: 36415; 70486; 80053; 83605; 84703; 85025; J0295; J0780; J1885; J2270; J2405

== ENCOUNTER 2024-03-16 17:25 | Emergency (ER) | payer OTHER ==
[~2024-03-16] VITALS: Ht 167.6 cm; Wt 67.2 kg
[~2024-03-16 17:25] MED LIST changes: +AMOXICILLIN500 MG PO; +CHLORHEXIDINE473 ML MM; +CIPRO500 MG PO; +PERCOCET 5-3251 EACH PO
[2024-03-16] MEDS ORDERED: ondansetron HCL 4 MG/2 ML VIAL IV ONE (20:45)
[2024-03-16 20:57] LABS: BASOPHILS 0.5 % (0-2); EOSINOPHILS 3.2 % (0-6); HEMATOCRIT 36.8 % (35.0-50.0); HEMOGLOBIN 12.9 g/dL (12.0-18.0); LYMPHOCYTES 30.3 % (24-44); MCH 32.4 (27-36); MCHC 35.1 g/dl (30-36); MCV 92.2 fl (81-99); MONOCYTES 6.8 % (0-12); NEUTROPHILS 59.2 % (39-80); PLATELET COUNT 206 K/uL (140-440); RBC 3.99 M/ul (4.3-5.7); RDW 12.6 (10.5-15.0)
[2024-03-16 21:12] LABS: ALBUMIN 3.9 g/dL (3.4-5.0); ALBUMIN/GLOBULIN RATIO 1.26 (1.1-2.4); ANION GAP 12.5 (7-21); BILIRUBIN, TOTAL 0.3 ng/dL (0.2-1.0); BUN/CREATININE RATIO 11.25 (6.0-28.6); CALCIUM 8.8 mg/dL (8.5-10.1); CREATININE, SERUM 0.8 mg/dL (0.55-1.02); POTASSIUM 3.5 mmol/L (3.5-5.1)
[2024-03-16 22:33] LABS: BILIRUBIN, URINE NEGATIVE (negative); BLOOD/HGB, URINE NEGATIVE (Negative); KETONE, URINE TRACE (Negative); LEUK ESTERASE, URINE NEGATIVE (negative); NITRITE, URINE NEGATIVE (negative)
[2024-03-16 23:35] VITALS: BP 127/82
== END 2024-03-16 23:37 | disposition home or self-care (01) ==
LOC: ED 17:25
PROVIDERS: Internal Medicine
DX: N83.292 Other ovarian cyst, left side (principal); Z91.030 Bee allergy status; Z91.048 Other nonmedicinal substance allergy status
CPT/HCPCS: 36415; 76830; 76856; 80053; 81003; 83690; 84703; 85025; 99284-25

== ENCOUNTER 2024-08-07 18:09 | Emergency (ER) | payer OTHER ==
[~2024-08-07] VITALS: Ht 167.6 cm; Wt 60.0 kg
[2024-08-07 19:55] LABS: BASOPHILS 0.2 % (0-2); EOSINOPHILS 2.4 % (0-6); HEMATOCRIT 38.6 % (35.0-50.0); HEMOGLOBIN 13.7 g/dL (12.0-18.0); LYMPHOCYTES 9.2 % (24-44); MCH 31.5 (27-36); MCHC 35.6 g/dl (30-36); MCV 88.3 fl (81-99); MONOCYTES 6.3 % (0-12); NEUTROPHILS 81.9 % (39-80); PLATELET COUNT 159 K/uL (140-440); RBC 4.37 M/ul (4.3-5.7); RDW 12.3 (10.5-15.0)
[2024-08-07 20:15] LABS: ALBUMIN 4.3 g/dL (3.4-5.0); ALBUMIN/GLOBULIN RATIO 1.26 (1.1-2.4); ALKALINE PHOSPHATASE 71 U/L (46-116); ALT (SGPT) 21 U/L (14-59); ANION GAP 14.4 (7-21); AST (SGOT) 14 U/L (15-37); BUN/CREATININE RATIO 12.35 (6.0-28.6); CALCIUM 8.9 mg/dL (8.5-10.1); CARBON DIOXIDE 25 mmol/L (21-32); CHLORIDE 101 mmol/L (98-107); CREATININE, SERUM 0.89 mg/dL (0.55-1.02); GLOMERULAR FILTRATION RATE,EST 95 mL/min (>60); POTASSIUM 3.4 mmol/L (3.5-5.1); PROTEIN, TOTAL 7.7 g/dL (6.4-8.2); UREA NITROGEN 11 mg/dL (7-18)
[2024-08-07] MEDS ORDERED: ONDANSETRON 4 MG HOME.PACK SL ONE (20:30)
[2024-08-07] MEDS ORDERED: ondansetron HCL 4 MG/2 ML VIAL IV ONE (20:30)
[2024-08-07] MEDS ORDERED: SODIUM CHLORIDE 0.9% 2,000 ML IV SCH (20:30)
[2024-08-07] MEDS ORDERED: ACETAMINOPHEN 500 MG TAB ONE (20:32)
[2024-08-07] MEDS ORDERED: ACETAMINOPHEN 500 MG TAB PO ONE (20:45)
[2024-08-07 22:59] VITALS: BP 100/65
--- NOTE | 2024-08-08 14:38 | EKG ---
[facility] [address] [facility] [place] [address] Signed Normal sinus rhythm with sinus arrhythmia Normal ECG When compared with ECG of 19-SEP-2023 01:47, No significant change was found Confirmed by Brittany Milton DO ([id number]) on 08/08/2024 2:38:17 PM Electronically Signed By: BRITTANY MILTON DO 08/08/24 1438 PATIENT NAME: JUMANA DOTSON Electrocardiogram DATE OF : [birth year] PHYSICIAN: BRITTANY MILTON DO REPORT #: [id number] REPORT IS CONFIDENTIAL AND NOT TO BE RELEASED WITHOUT AUTHORIZATION
== END 2024-08-07 22:50 | disposition home or self-care (01) ==
LOC: ED 18:09
PROVIDERS: Emergency Medicine
DX: B34.9 Viral infection, unspecified (principal); Z88.8 Allergy status to other drugs, medicaments and biological substances
CPT/HCPCS: 36415; 71045; 80053; 84484; 85025; 93005; 93010; 96374; 99284-25; A9270; J2405; J7030

== ENCOUNTER 2024-09-02 02:50 | Observation (INO) | payer OTHER ==
[~2024-09-02] VITALS: Ht 167.6 cm; Wt 64.8 kg
[2024-09-02] MEDS ORDERED: MORPHINE SULFATE 4 MG/ML VIAL IV ONE (03:00)
[2024-09-02] MEDS ORDERED: SODIUM CHLORIDE 0.9% 1,000 ML IV ONE (03:00)
[2024-09-02] MEDS ORDERED: ondansetron HCL 4 MG/2 ML VIAL IV ONE (03:00)
[2024-09-02] MEDS ORDERED: ondansetron HCL 4 MG/2 ML VIAL ONE (03:03)
[2024-09-02 03:13] LABS: BASOPHILS 0.6 % (0.1-1.2); EOSINOPHILS 2.2 % (0.7-5.8); HEMATOCRIT 37.4 % (34.1-44.9); HEMOGLOBIN 12.9 g/dL (11.2-15.7); LYMPHOCYTES 31.1 % (19.3-51.7); MCH 31.5 PG (25.6-32.2); MCHC 34.5 g/dL (32.2-35.5); MCV 91.2 fL (79.4-94.8); MONOCYTES 8.4 % (4.7-12.5); NEUTROPHILS 57.4 % (34.0-71.1); PLATELET COUNT 222 K/uL (182-369)
[2024-09-02] MEDS ORDERED: droPERidol 5 MG/2 ML VIAL IV ONE (03:15)
[2024-09-02 03:39] LABS: ALBUMIN 4.1 g/dL (3.4-5.0); ALBUMIN/GLOBULIN RATIO 1.37 (1.1-2.4); ANION GAP 12.7 (7-21); BILIRUBIN, TOTAL 0.5 mg/dL (0.2-1.0); BUN/CREATININE RATIO 18.27 (6.0-28.6); CALCIUM 8.5 mg/dL (8.5-10.1); CREATININE, SERUM 0.93 mg/dL (0.55-1.02); POTASSIUM 3.7 mmol/L (3.5-5.1); PROTEIN, TOTAL 7.1 g/dL (6.4-8.2)
[2024-09-02] MEDS ORDERED: CEFTRIAXONE SODIUM 2 GM in SODIUM CHLORIDE 0.9% 100 ML IV ONE (05:00)
[2024-09-02] MEDS ORDERED: LACTATED RINGER'S 1,000 ML IV ONE (05:00)
[2024-09-02] MEDS ORDERED: ondansetron HCL 4 MG/2 ML VIAL IV PRN (05:00)
[2024-09-02] MEDS ORDERED: MORPHINE SULFATE 4 MG/ML VIAL IV PRN (05:00)
[2024-09-02] MEDS ORDERED: ACETAMINOPHEN 325 MG TAB PO PRN (05:00)
[2024-09-02] MEDS ORDERED: DEXTROSE 5% - LACTATED RINGERS 1,000 ML IV SCH (05:15)
[2024-09-02] MEDS ORDERED: PROCHLORPERAZINE EDISYLATE 10 MG/2 ML VIAL IV PRN (05:15)
[2024-09-02 05:43] VITALS: BP 110/51
--- NOTE | 2024-09-02 05:46 | NUR ---
REPORT RECEIVED FROM ER NURSE FRANCE Gonzalez RN. PATIENT TRANSPORTED TO MS RM 116 VIA STRETCHER. SETTLED IN ROOM. VS OBTAINED AND RECORDED. WEIGHT OBTAINED. PATIENT RESTING WITH EYES CLOSED, RESPONDS TO VERBAL INSTRUCTIONS BUT DROWSY. CALL LIGHT IN REACH.
--- NOTE | 2024-09-02 06:24 | NUR ---
PATIENT RESTING WITH EYES CLOSED, RESPIRATIONS EVEN AND UNLABORED. ANSWERS VERBAL CUES BUT REMAINS DROWSY. NO NEEDS, CALL LIGHT IN REACH
--- NOTE | 2024-09-02 07:11 | NUR ---
VERBAL REPORT RECEIVED FROM YAO POPE. PT RESTS IN BED WITH EYES CLOSED, RESP EVEN AND UNLABORED. SPO2 ON CPOX 94%.
--- NOTE | 2024-09-02 08:51 | NUR ---
THIS RETIREMENT ASSISTANT IN TO DO MORNING ROUNDS. PATIENT IN BED RESTING AT THIS TIME. BREAKFAST IN ROOM, PATIENT STATES SHE IS VERY TIRED AND WILL EAT IN A LITTLE BIT. WHITE BOARD UPDATED. CALL LIGHT IN REACH. NO FURTHER NEEDS AT THIS TIME.
--- NOTE | 2024-09-02 10:37 | NUR ---
VERBAL REPORT PROVIDED TO YAO TELLO.
[2024-09-02 10:41] VITALS: BP 121/68
== END 2024-09-02 11:16 | disposition home or self-care (01) ==
LOC: ED 02:50 → MS 02:51
PROVIDERS: Family Medicine; ADMIT Surgery; ATTEND Surgery
DX: R10.31 Right lower quadrant pain (principal); K38.1 Appendicular concretions; Z87.42 Personal history of other diseases of the female genital tract; Z87.820 Personal history of traumatic brain injury; Z88.8 Allergy status to other drugs, medicaments and biological substances; Z91.038 Other insect allergy status
CPT/HCPCS: 74176; 80053; 84703; 85025; 96374; 96375; 99285-25; J0696; J1790; J2270; J2405; J7030; J7121

== ENCOUNTER 2024-10-14 17:32 | Emergency (ER) | payer OTHER ==
[~2024-10-14] VITALS: Ht 167.6 cm; Wt 61.6 kg
[2024-10-14] MEDS ORDERED: AVIANE1 EACH PO (18:44)
[2024-10-14 19:20] LABS: BASOPHILS 0.6 % (0.1-1.2); EOSINOPHILS 2.0 % (0.7-5.8); LYMPHOCYTES 34.5 % (19.3-51.7); MCH 30.9 PG (25.6-32.2); MCHC 34.8 g/dL (32.2-35.5); MCV 89.0 fL (79.4-94.8); MONOCYTES 7.0 % (4.7-12.5); NEUTROPHILS 55.6 % (34.0-71.1); RBC 4.46 M/uL (3.93-5.22)
[2024-10-14 19:30] LABS: ALT (SGPT) 16.0 U/L (14-59); AST (SGOT) 16.0 U/L (15-37); GLOMERULAR FILTRATION RATE,EST 98.0 mL/min (>60); PROTEIN, TOTAL 8.0 g/dL (6.4-8.2); UREA NITROGEN 16.0 mg/dL (7-18)
[2024-10-14 19:56] LABS: BLOOD/HGB, URINE LARGE (Negative); KETONE, URINE TRACE (Negative); LEUK ESTERASE, URINE NEGATIVE (negative); NITRITE, URINE NEGATIVE (negative)
[2024-10-14 20:11] LABS: EPITHELIAL CELLS, URINE SQUAMOUS 2+ /lpf (0-1+)
[2024-10-14 20:12] LABS: BACTERIA, URINE 1+ /hpf (negative); CASTS, URINE NONE SEEN \\lpf; CRYSTALS, URINE NONE SEEN (0-1+); REFLEX CULTURE, URINE No (No)
[2024-10-14] MEDS ORDERED: SODIUM CHLORIDE 0.9% 2,000 ML IV SCH (20:15)
[2024-10-14] MEDS ORDERED: ONDANSETRON 4 MG HOME.PACK SL ONE (21:00)
[2024-10-14 21:10] VITALS: BP 128/89
== END 2024-10-14 21:12 | disposition home or self-care (01) ==
LOC: ED 17:32
PROVIDERS: Emergency Medicine
DX: K52.9 Noninfective gastroenteritis and colitis, unspecified (principal); Z91.030 Bee allergy status; Z88.8 Allergy status to other drugs, medicaments and biological substances
CPT/HCPCS: 36415; 80053; 81001; 83690; 84703; 85025; 96374; 99284-25; A9270; J2405; J7030

== ENCOUNTER 2024-11-26 00:43 | Emergency (ER) | payer OTHER ==
[~2024-11-26] VITALS: Ht 167.6 cm; Wt 62.9 kg
[~2024-11-26 00:43] MED LIST changes: +AVIANE1 EACH PO
[2024-11-26 02:04] LABS: BASOPHILS 0.5 % (0.1-1.2); EOSINOPHILS 3.2 % (0.7-5.8); LYMPHOCYTES 35.7 % (19.3-51.7); MCH 31.0 PG (25.6-32.2); MCHC 34.5 g/dL (32.2-35.5); MCV 90.0 fL (79.4-94.8); MONOCYTES 7.5 % (4.7-12.5); NEUTROPHILS 52.7 % (34.0-71.1); RBC 4.22 M/uL (3.93-5.22)
[2024-11-26] MEDS ORDERED: DOXYCYCLINE HYCLATE 100 MG HOME.PACK PO ONE (02:30)
[2024-11-26 02:41] VITALS: BP 126/85
== END 2024-11-26 02:42 | disposition home or self-care (01) ==
LOC: ED 00:43
PROVIDERS: Family Medicine
DX: L03.116 Cellulitis of left lower limb (principal); S80.12XA Contusion of left lower leg, initial encounter; Z91.030 Bee allergy status; Z88.8 Allergy status to other drugs, medicaments and biological substances; Z79.3 Long term (current) use of hormonal contraceptives; W50.4XXA Accidental scratch by another person, initial encounter
CPT/HCPCS: 36415; 85025; 85379; 99283; A9270